=== PATIENT | female | born 1940 | race Caucasian/White ===

== ENCOUNTER → 2016-11-12 | Emergency (ER) | payer BC ==
[~2016-11-12] MED LIST: ACETAMINOPHEN 325 MG TABLET (FP) ONE; ACETAMINOPHEN 325 MG TABLET (FP) PO ONE; FUROSEMIDE 40 MG/4 ML INJECTABLE VIAL ONE; HYDROCORTISONE SOD SUCCINATE 2 ML ONE; PT OWN MED DRAWER 7, Y5N ONE
[2016-11-12 19:07] VITALS: BP 188/104; PULSE 69; TEMP 97.4; BMI 25.9
[2016-11-12 22:00] LABS: BASOPHIL 1.1 % (0-2.0); EOSINOPHIL 1.6 % (0-4.5); MCH 31.4 pg (25.7-33.7); MCHC 33.5 g/dl (32.0-36.0); MEAN CELL VOLUME 93.7 fl (80-96); MEAN PLT VOLUME 9.2 fl (7.5-11.1); PLATELET COUNT 175 K/MM3 (134-434); RDW 13.6 % (11.6-15.6); WHITE BLOOD COUNT 8.3 K/mm3 (4.0-10.0)
[2016-11-12 22:22] LABS: INR 1.88 (0.82-1.09)
[2016-11-12 22:33] LABS: ALBUMIN 3.8 g/dl (3.4-5.0); ANION GAP 11 (8-16); CALCIUM 9.7 mg/dL (8.5-10.1); CO2 22 mmol/L (21-32); GLUCOSE,RANDOM 88 mg/dL (74-106); SGPT/ALT 19 U/L (12-78)
[2016-11-12 22:38] LABS: ALK PHOS 100 U/L (45-117); BILIRUBIN,TOTAL 0.6 mg/dL (0.2-1.0); CREATININE 1.4 mg/dL (0.55-1.02); TROPONIN I < 0.02 ng/ml (0.00-0.05)
[2016-11-12 22:39] LABS: MAGNESIUM 1.5 mg/dL (1.8-2.4); SGOT/AST 25 U/L (15-37)
[2016-11-12 23:11] LABS: URINE APPEARANCE CLEAR; URINE BILIRUBIN NEGATIVE (NEGATIVE); URINE BLOOD NEGATIVE (NEGATIVE); URINE COLOR LT. YELLOW; URINE GLUCOSE (UA) NEGATIVE (NEGATIVE); URINE KETONE NEGATIVE (NEGATIVE); URINE LEUK ESTERASE NEGATIVE (NEGATIVE); URINE NITRITE NEGATIVE (NEGATIVE); URINE PROTEIN NEGATIVE (NEGATIVE); URINE UROBILINOGEN 0.2 E.U/dl E.U./dl (0.2-1.0)
--- NOTE | 2016-11-12 23:18 | PDOC ---
History of Present Illness - General Chief Complaint: Blood Pressure Problem Stated Complaint: PCP SENT/BLOOD PRESSURE PROBLEM Time Seen by Provider: 11/12/16 19:01 History Source: Patient, Family Exam Limitations: No Limitations - History of Present Illness Initial Comments: 11/12/16 20:45 76yo Female patient presented to ED with Family c/o near syncope and HTN. Patient states she is currently under the care of Dr. Alok Austin ( Cardiology) for uncontrolled HTN. She state her Bp medications were recently adjusted due to elevated SBP. While in Dr. Austin office patient states she was called to the back and while ambulating, she had a near syncope episode "Dizzy Spell." Associated headache. She denies CP, Back pain, n/v/d, fever, diff breathing, confusion, disorientation, or any other complaints at this time. Dr. Alok Austin (Cardiology). Presenting Symptoms: Near-Syncope Timing/Duration: reports: resolved prior to arrival Severity/Quality: reports: mild Location: denies: substernal, central, epigastric, shoulder, back, abdomen, other Chest Pain Radiation: denies: no radiation, jaw, arms, neck, shoulders, back, sternal notch, epigastric, other Activities at Onset: denies: none, exertion, emotional upset, rest, sleep, no specific activity, eating, working, sexual intercourse, other Past History - Travel Traveled outside of the country in the last 30 days: No Close contact w/someone who was outside of country & ill: No - Past Medical History Allergies/Adverse Reactions: Allergies Allergy/AdvReac Type Severity Reaction Status Date / Time iodine Allergy Severe "TURNED Verified 11/12/16 19:01 RED LIKE A LOBSTER" phenobarbital Allergy Mild Itching Verified 11/12/16 19:01 Iodinated Contrast Media - Allergy Verified 11/12/16 19:01 Oral and [Iodinated Contrast Media - IV Dye] Sulfa (Sulfonamide Allergy Rash Verified 11/12/16 19:01 Antibiotics) prednisone AdvReac hallucinati Verified 11/12/16 19:01 ons Home Medications: Ambulatory Orders Allopurinol [Zyloprim -] 100 mg PO DAILY 08/15/13 Cholecalciferol (Vitamin D3) [Vitamin D] 1,000 unit PO DAILY 08/15/13 Folic Acid - 400 mcg PO DAILY 11/29/14 Mirtazapine [Remeron -] 15 mg PO DAILY 07/10/15 Alprazolam [Xanax] 0.5 mg PO BID PRN 07/25/15 Warfarin Na [Coumadin -] 2 mg PO HS 10/15/15 Amlodipine Besylate [Norvasc -] 5 mg PO DAILY #30 tablet 10/18/15 Metoprolol Tartrate [Lopressor -] 12.5 mg PO BID #30 tablet 10/18/15 Valsartan [Diovan] 160 mg PO DAILY #30 tablet 10/18/15 Anemia: No Asthma: No Cancer: Yes (COLON, MELANOMA- RESECTION ON R UE.) Cardiac Disorders: Yes (ATRIAL FIBRILLATION) CVA: No COPD: No CHF: No Dementia: No Diabetes: No GI Disorders: No Disorders: No HTN: Yes Hypercholesterolemia: No Liver Disease: No Seizures: No Thyroid Disease: No - Surgical History Abdominal Surgery: Yes (colon sx with anastomosis) Cardiac Surgery: No Cholecystectomy: Yes Lung Surgery: No Neurologic Surgery: No Orthopedic Surgery: No - Psycho/Social/Smoking Cessation Hx Anxiety: No Suicidal Ideation: No Smoking Status: Yes Smoking History: Never smoked Number of Cigarettes Smoked Daily: 0 Hx Alcohol Use: Yes (WINE) Drug/Substance Use Hx: No Substance Use Type: None Hx Substance Use Treatment: No Cardiac Specific PMH - Complaint Specific PMHX Abdominal Aortic Aneurysm: No Angina: No Cardiac Arrhythmia: No Cardiac Stent: No GERD: No Myocardial Infarction: No Pacemaker: No Pulmonary Embolus: No Valvular Heart Disease: No Peripheral Vascular Disease: No Review of Systems - Review of Systems Able to Perform ROS?: Yes Is the patient limited Iraqi proficient: No Constitutional: No: Chills, Fever, Weakness HEENTM: No: Blurred Vision, Double Vision Respiratory: No: Cough, Orthopnea, Shortness of Breath, Stridor, Wheezing Cardiac (ROS): Yes: Syncope. No: Chest Pain, Edema, Irregular Heart Rate, Lightheadedness, Palpitations, Chest Tightness ABD/GI: No: Constipated, Diarrhea, Nausea, Poor Appetite, Poor Fluid Intake, Rectal Bleeding, Vomiting, Tarry Stools : No: Burning, Dysuria, Frequency, Flank Pain, Hematuria, Urgency Musculoskeletal: No: Back Pain, Joint Swelling, Muscle Pain, Muscle Weakness, Neck Pain, Joint Stiffness Integumentary: No: Bruising, Dryness, Erythema, Rash Neurological: Yes: Headache. No: Numbness, Paresthesia, Seizure, Tingling, Tremors, Weakness, Ataxia, Dizziness All Other Systems: Reviewed and Negative *Physical Exam - Vital Signs Last Vital Signs Temp Pulse Resp BP Pulse Ox 97.4 F L 69 18 188/104 99 11/12/16 19:02 11/12/16 19:02 11/12/16 19:02 11/12/16 19:02 11/12/16 19:02 ED Treatment Course - LABORATORY CBC & Chemistry Diagram: 11/12/16 21:50 11/12/16 21:50 - ADDITIONAL ORDERS Additional order review: Laboratory Results 11/12/16 11/12/16 11/12/16 22:30 21:50 21:50 INR 1.88 H Sodium 140 Potassium 4.4 Chloride 107 Carbon Dioxide 22 Anion Gap 11 BUN 27 H Creatinine 1.4 H Creat Clearance w eGFR 36.56 Random Glucose 88 D Calcium 9.7 Magnesium 1.5 L Total Bilirubin 0.6 D AST 25 ALT 19 D Alkaline Phosphatase 100 Creatine Kinase 114 Troponin I < 0.02 Total Protein 7.0 Albumin 3.8 Urine Color Lt. yellow Urine Appearance Clear Urine pH 6.0 Ur Specific [place] <= 1.005 Urine Protein Negative Urine Glucose (UA) Negative Urine Ketones Negative Urine Blood Negative Urine Nitrite Negative Urine Bilirubin Negative Urine Urobilinogen 0.2 e.u/dl Ur Leukocyte Esterase Negative 11/12/16 21:50 RBC 3.27 L MCV 93.7 MCHC 33.5 RDW 13.6 MPV 9.2 Neutrophils % 68.0 Lymphocytes % 23.2 D Monocytes % 6.1 Eosinophils % 1.6 Basophils % 1.1 - RADIOLOGY Radiology Studies Ordered: Category Date Time Status HEAD CT WITHOUT CONTRAST [CT] Stat CT Scan 11/12/16 19:53 Completed - Medications Given in the ED: ED Medications Discontinued Medications Generic Name Dose Route Start Last Admin Trade Name Freq PRN Reason Stop Dose Admin Acetaminophen 650 mg 11/12/16 19:53 11/12/16 21:55 Tylenol - PO 11/12/16 19:54 650 mg ONCE ONE Administration Progress Note - Progress Note Progress Note: Discharge vitals: b/p 157/78, p- 76, O2- 97% RA. Patient is chest pain free and will be d/c'd to home with instructions to f/u with PCP and Cardiology. *DC/Admit/Observation/Transfer Diagnosis at time of Disposition: Pre-syncope HTN (hypertension) Qualifiers: Hypertension type: unspecified secondary hypertension Qualified Code(s): I15.9 - Secondary hypertension, unspecified; I15 - Secondary hypertension - Discharge Dispostion Disposition: HOME Condition at time of disposition: Stable Admit: No - Patient Instructions Printed Discharge Instructions: DI for High Blood Pressure, DI for Syncope in Adults (Fainting) Additional Instructions: FOLLOW UP WITH DR. SLOAN AND DR. AUSTIN THIS WEEK. CALL TO SCHEDULE APPOINTMENT. CONTINUE TO MONITOR YOUR BLOOD PRESSURE AND TAKE YOUR BLOOD PRESSURE MEDICATIONS PRESCRIBED. IF SYMPTOMS WORSEN, OR ANY CONCERNS RETURN FOR FURTHER EVALUATION. Print Language: FRISIAN
--- NOTE | 2016-11-12 23:46 | PDOC ---
*Physical Exam - Vital Signs Last Vital Signs Temp Pulse Resp BP Pulse Ox 97.4 F L 69 18 188/104 99 11/12/16 19:02 11/12/16 19:02 11/12/16 19:02 11/12/16 19:02 11/12/16 19:02 ED Treatment Course - LABORATORY CBC & Chemistry Diagram: 11/12/16 21:50 11/12/16 21:50 - ADDITIONAL ORDERS Additional order review: Laboratory Results 11/12/16 11/12/16 11/12/16 22:30 21:50 21:50 INR 1.88 H Sodium 140 Potassium 4.4 Chloride 107 Carbon Dioxide 22 Anion Gap 11 BUN 27 H Creatinine 1.4 H Creat Clearance w eGFR 36.56 Random Glucose 88 D Calcium 9.7 Magnesium 1.5 L Total Bilirubin 0.6 D AST 25 ALT 19 D Alkaline Phosphatase 100 Creatine Kinase 114 Troponin I < 0.02 Total Protein 7.0 Albumin 3.8 Urine Color Lt. yellow Urine Appearance Clear Urine pH 6.0 Ur Specific [place] <= 1.005 Urine Protein Negative Urine Glucose (UA) Negative Urine Ketones Negative Urine Blood Negative Urine Nitrite Negative Urine Bilirubin Negative Urine Urobilinogen 0.2 e.u/dl Ur Leukocyte Esterase Negative 11/12/16 21:50 RBC 3.27 L MCV 93.7 MCHC 33.5 RDW 13.6 MPV 9.2 Neutrophils % 68.0 Lymphocytes % 23.2 D Monocytes % 6.1 Eosinophils % 1.6 Basophils % 1.1 - Medications Given in the ED: ED Medications Discontinued Medications Generic Name Dose Route Start Last Admin Trade Name Freq PRN Reason Stop Dose Admin Acetaminophen 650 mg 11/12/16 19:53 11/12/16 21:55 Tylenol - PO 11/12/16 19:54 650 mg ONCE ONE Administration Medical Decision Making - Medical Decision Making 11/12/16 23:46 agree with care from EKTA Bautista *DC/Admit/Observation/Transfer Diagnosis at time of Disposition: Syncope, near HTN (hypertension) Qualifiers: Hypertension type: unspecified secondary hypertension Qualified Code(s): I15.9 - Secondary hypertension, unspecified - Discharge Dispostion Disposition: HOME Condition at time of disposition: Stable - Referrals Referrals: Quan Sloan MD [Primary Care Provider] - - Patient Instructions Printed Discharge Instructions: DI for Syncope in Adults (Fainting), DI for High Blood Pressure Additional Instructions: FOLLOW UP WITH DR. SLOAN AND DR. AUSTIN THIS WEEK. CALL TO SCHEDULE APPOINTMENT. CONTINUE TO MONITOR YOUR BLOOD PRESSURE AND TAKE YOUR BLOOD PRESSURE MEDICATIONS PRESCRIBED. IF SYMPTOMS WORSEN, OR ANY CONCERNS RETURN FOR FURTHER EVALUATION. Print Language: POLISH - Post Discharge Activity
== END | disposition home or self-care (01) ==
LOC: JER 18:58
DX: R55 Syncope and collapse (principal); I15.9 Secondary hypertension, unspecified; Z79.01 Long term (current) use of anticoagulants; I48.91 Unspecified atrial fibrillation; Z85.030 Personal history of malignant carcinoid tumor of large intestine; Z85.820 Personal history of malignant melanoma of skin
CPT/HCPCS: 36415; 70450-TC; 80053; 81003; 82550; 83735; 84484; 85025; 85610; 99281-25

== ENCOUNTER 2017-02-17 17:16 | Inpatient (IN) | payer BC ==
--- NOTE | 2017-02-17 17:36 | PDOC ---
History of Present Illness - General History Source: Patient Exam Limitations: No Limitations - History of Present Illness Initial Comments: 02/17/17 18:05 The patient is a 76 year old female, with significant past medical history of DVT of both lower extremities, HTN, Afib, colon cancer s/p colon resection, who was sent in by Dr. Lamas for a right popliteal DVT found during an office visit today. She states that her right foot is slightly painful, but has no other complaints at this time. The patient notes that she just finished a course of antibiotics (500mg of keflex twice a day) prescribed by [facility] for an ulcer on her right second toe. Denies abdominal pain. Denies fever, chills, nausea, vomiting. Allergies: Iodine, phenobarbital, iodinated contrast media, sulfa, prednisone PCP- Dr. Quan Lamas [phone] <Ila Angelo - Last Filed: 02/17/17 18:26> <Bird Hair - Last Filed: 02/17/17 18:38> - General Chief Complaint: Pain, Acute Stated Complaint: PCP ADMIT/BLOOD CLOT Time Seen by Provider: 02/17/17 17:35 Past History <Ila Angelo - Last Filed: 02/17/17 18:26> - Past Medical History Anemia: No Asthma: No Cancer: Yes (COLON, MELANOMA- RESECTION ON R UE.) Cardiac Disorders: Yes (ATRIAL FIBRILLATION) CVA: No COPD: No CHF: No Dementia: No Diabetes: No GI Disorders: No Disorders: No HTN: Yes Hypercholesterolemia: No Liver Disease: No Seizures: No Thyroid Disease: No - Surgical History Abdominal Surgery: Yes (colon sx with anastomosis) Cardiac Surgery: No Cholecystectomy: Yes Lung Surgery: No Neurologic Surgery: No Orthopedic Surgery: No - Psycho/Social/Smoking Cessation Hx Anxiety: No Suicidal Ideation: No Smoking Status: Yes Smoking History: Never smoked Number of Cigarettes Smoked Daily: 0 Hx Alcohol Use: Yes (WINE) Drug/Substance Use Hx: No Substance Use Type: None Hx Substance Use Treatment: No <Bird Hair - Last Filed: 02/17/17 18:38> - Past Medical History Allergies/Adverse Reactions: Allergies Allergy/AdvReac Type Severity Reaction Status Date / Time iodine Allergy Severe "TURNED Verified 11/12/16 19:01 RED LIKE A LOBSTER" phenobarbital Allergy Mild Itching Verified 11/12/16 19:01 Iodinated Contrast Media - Allergy Verified 11/12/16 19:01 Oral and [Iodinated Contrast Media - IV Dye] Sulfa (Sulfonamide Allergy Rash Verified 11/12/16 19:01 Antibiotics) prednisone AdvReac hallucinati Verified 11/12/16 19:01 ons Home Medications: Ambulatory Orders Allopurinol [Zyloprim -] 100 mg PO DAILY 08/15/13 Cholecalciferol (Vitamin D3) [Vitamin D] 1,000 unit PO DAILY 08/15/13 Folic Acid - 400 mcg PO DAILY 11/29/14 Mirtazapine [Remeron -] 15 mg PO DAILY 07/10/15 Alprazolam [Xanax] 0.5 mg PO BID PRN 07/25/15 Warfarin Na [Coumadin -] 2 mg PO ASDIR 10/15/15 Hydralazine HCl 50 mg PO TID 02/17/17 Hydrochlorothiazide [Hctz -] 25 mg PO DAILY 02/17/17 Isosorbide Mononitrate [Imdur -] 30 mg PO DAILY 02/17/17 Losartan Potassium 50 mg PO BID 02/17/17 Metoprolol Tartrate [Lopressor -] 12.5 mg PO DAILY 02/17/17 Pramipexole Di-HCl [Pramipexole ER] 0.375 mg PO BID 02/17/17 Rosuvastatin Calcium [Crestor] 5 mg PO DAILY 02/17/17 Tramadol HCl 50 mg PO BID PRN 02/17/17 Warfarin Sodium [Coumadin] 4 mg PO ASDIR 02/17/17 Review of Systems - Review of Systems Able to Perform ROS?: Yes Comments:: 02/17/17 18:06 GENERAL/CONSTITUTIONAL: No fever or chills. No weakness. HEAD, EYES, EARS, NOSE AND THROAT: No change in vision. No ear pain or discharge. No sore throat. CARDIOVASCULAR: No chest pain or shortness of breath. RESPIRATORY: No cough, wheezing, or hemoptysis. GASTROINTESTINAL: No nausea, vomiting, diarrhea or constipation. GENITOURINARY: No dysuria, frequency, or change in urination. MUSCULOSKELETAL: + RLE edema. No joint or muscle swelling or pain. No neck or back pain. SKIN: +ulcer on the right second toe. NEUROLOGIC: No headache, vertigo, loss of consciousness, or change in strength/ sensation. ENDOCRINE: No increased thirst. No abnormal weight change. HEMATOLOGIC/LYMPHATIC: No anemia, easy bleeding, or history of blood clots. ALLERGIC/IMMUNOLOGIC: No hives or skin allergy. <Ila Angelo - Last Filed: 02/17/17 18:26> *Physical Exam - Vital Signs Last Vital Signs Temp Pulse Resp BP Pulse Ox 98.0 F 66 18 161/76 100 02/17/17 17:37 02/17/17 17:37 02/17/17 17:37 02/17/17 17:37 02/17/17 17:37 - Physical Exam Comments: 02/17/17 18:06 GENERAL: Awake, alert, and fully oriented, in no acute distress HEAD: No signs of trauma EYES: PERRLA, EOMI, sclera anicteric, conjunctiva clear ENT: Auricles normal inspection, hearing grossly normal, nares patent, oropharynx clear without exudates. Moist mucosa NECK: Normal ROM, supple, no lymphadenopathy, JVD, or masses LUNGS: Breath sounds equal, clear to auscultation bilaterally. No wheezes, and no crackles HEART: Regular rate and rhythm, normal S1 and S2, no murmurs, rubs or gallops ABDOMEN: Soft, nontender, normoactive bowel sounds. No guarding, no rebound. No masses EXTREMITIES: 3+ pitting edema of the RLE. Normal range of motion. No clubbing or cyanosis. No cords. NEUROLOGICAL: Cranial nerves II through XII grossly intact. Normal speech, normal gait SKIN: +Ulcer on the medial aspect of the right second toe. Warm, Dry, normal turgor, no rashes. <Ila Angelo - Last Filed: 02/17/17 18:26> Heart Score/ECG Review #1 02/17/17 18:20 Sinus bradycardia with a rate of 59 bpm <Ila Angelo - Last Filed: 02/17/17 18:26> ED Treatment Course - LABORATORY CBC & Chemistry Diagram: 02/17/17 17:55 02/17/17 17:55 - RADIOLOGY Radiograph Interpretation: 02/17/17 18:27 Chest X-ray As reported by Dr. Matt Snider. Impression: No acute disease <Ila Angelo - Last Filed: 02/17/17 18:26> - LABORATORY CBC & Chemistry Diagram: 02/17/17 17:55 02/17/17 17:55 <Bird Hair - Last Filed: 02/17/17 18:38> *DC/Admit/Observation/Transfer - Attestations Scribe Attestion: 02/17/17 18:07 Documentation prepared by KADIE Lozano, acting as medical office representative for Bird Hair DO. <Ila Angelo - Last Filed: 02/17/17 18:26> - Discharge Dispostion Admit: Yes - Attestations Physician Attestion: 02/17/17 17:36 I, Dr. Bird Hair, attest that this document has been prepared under my direction and personally reviewed by me in its entirety. I further attest, that it accurately reflects all work, treatment, procedures and medical decision -making performed by me. <Bird Hair - Last Filed: 02/17/17 18:38> Diagnosis at time of Disposition: Deep vein thrombosis (DVT) of popliteal vein of right lower extremity Qualifiers: Chronicity: acute Qualified Code(s): I82.431 - Acute embolism and thrombosis of right popliteal vein - Discharge Dispostion Condition at time of disposition: Improved - Referrals Referrals: Quan Lamas MD [Primary Care Provider] -
[2017-02-17] MEDS ORDERED: ENOXAPARIN NA (PORCINE) 60 MG/0.6 ML DISP.SYRIN SQ SCH (17:45)
[2017-02-17] MEDS ORDERED: ENOXAPARIN NA (PORCINE) 60 MG/0.6 ML DISP.SYRIN SQ ONE (17:45)
[2017-02-17 18:10] LABS: BASOPHIL 0.5 % (0-2.0); MCH 31.4 pg (25.7-33.7); MCHC 33.7 g/dl (32.0-36.0); MEAN CELL VOLUME 93.1 fl (80-96); MEAN PLT VOLUME 8.6 fl (7.5-11.1); PLATELET COUNT 193 K/MM3 (134-434); RDW 13.2 % (11.6-15.6); WHITE BLOOD COUNT 8.2 K/mm3 (4.0-10.0)
[2017-02-17] MEDS ORDERED: ENOXAPARIN NA (PORCINE) 80 MG/0.8 ML DISP.SYRIN SQ ONE (18:20)
[2017-02-17 18:36] LABS: ALBUMIN 3.9 g/dl (3.4-5.0); ANION GAP 11 (8-16); CALCIUM 9.5 mg/dL (8.5-10.1); CO2 24 mmol/L (21-32); CREATININE 1.5 mg/dL (0.55-1.02); GLUCOSE,RANDOM 158 mg/dL (74-106); SGOT/AST 25 U/L (15-37); SGPT/ALT 21 U/L (12-78)
[2017-02-17 18:41] LABS: ALK PHOS 101 U/L (45-117); BILIRUBIN,TOTAL 0.4 mg/dL (0.2-1.0); TOT PROT 7.1 g/dl (6.4-8.2); TROPONIN I < 0.02 ng/ml (0.00-0.05)
[2017-02-17 18:48] LABS: INR 1.7 (0.82-1.09); PROTHROMBIN TIME (PATIENT) 18.9 SEC (9.98-11.88)
[2017-02-17] MEDS ORDERED: ALPRAZolam 0.25 MG TABLET PO PRN (19:02)
[2017-02-17] MEDS ORDERED: traMADol HCL 50 MG TABLET PO PRN (19:02)
[2017-02-17] MEDS ORDERED: ACETAMINOPHEN 325 MG TABLET (FP) PO PRN (19:04)
[2017-02-17] MEDS: hydrALAZINE HCL 50 MG TABLET (FP) PO SCH (22:54)
[2017-02-17] MEDS: LOSARTAN POTASSIUM 50 MG TABLET (FP) PO SCH (22:54)
[2017-02-17] MEDS: PRAMIPEXOLE DIHYDROCHLORIDE 0.125 MG TABLET PO SCH (22:55)
[2017-02-18] MEDS: ENOXAPARIN NA (PORCINE) 60 MG/0.6 ML DISP.SYRIN SQ SCH ×4 (02:31→22:31)
[2017-02-18] MEDS: hydrALAZINE HCL 50 MG TABLET (FP) PO SCH ×3 (06:22→22:30)
[2017-02-18 07:55] LABS: BASOPHIL 0.7 % (0-2.0); EOSINOPHIL 2.7 % (0-4.5); MCH 31.5 pg (25.7-33.7); MCHC 34.3 g/dl (32.0-36.0); MEAN CELL VOLUME 91.9 fl (80-96); MEAN PLT VOLUME 8.2 fl (7.5-11.1); NEUTROPHILS 58.3 % (42.8-82.8); PLATELET COUNT 153 K/MM3 (134-434); RDW 13.5 % (11.6-15.6); WHITE BLOOD COUNT 6.3 K/mm3 (4.0-10.0)
[2017-02-18 08:29] LABS: INR 1.89 (0.82-1.09); PROTHROMBIN TIME (PATIENT) 21.1 SEC (9.98-11.88)
[2017-02-18 09:33] LABS: ALBUMIN 3.5 g/dl (3.4-5.0); ALK PHOS 94 U/L (45-117); ANION GAP 10 (8-16); BILIRUBIN,TOTAL 0.7 mg/dL (0.2-1.0); CALCIUM 9.7 mg/dL (8.5-10.1); CO2 23 mmol/L (21-32); CREATININE 1.3 mg/dL (0.55-1.02); GLUCOSE,RANDOM 83 mg/dL (74-106); SGOT/AST 24 U/L (15-37); SGPT/ALT 20 U/L (12-78); TOT PROT 6.4 g/dl (6.4-8.2); TROPONIN I < 0.02 ng/ml (0.00-0.05)
[2017-02-18] MEDS: ROSUVASTATIN CA 5 MG TABLET (FP) PO SCH ×2 (10:16→13:11)
--- NOTE | 2017-02-18 10:18 | CONSULT ---
Consultation: REQUESTING PROVIDER: CONSULT REQUEST: We have been asked to medically evaluate this patient for (ID). HISTORY OF PRESENT ILLNESS: 76 y/o female with pmh of dvt, colon cancer s/p resection, melanoma s/p resection was sent in by her pcp for right poplitian vein thrombosis and swelling in right foot. Patient states that she has swelling and erythema in right foot middle finger since 5 week. At that time she saw her pcp who did usg and xray, as per patient they were garcia. swelling and erythema kept on increasing and went uptil dorsum of her foot. 2 week ago patient noticed a discharge from her finger and she went to her pcp who gave her keflex 500mg bid for 10 days, last dose was on . Swelling, erythema and discharge never decreased while she was on antibiotic course. Yesterday she went back to her pcp who did usg leg and found poplitial vein thrombus right side. But repeat duplex scan in hospital didn't show thrombus. Patient denies fever, chills. Patient denies bumping her foot, denies blue discoloration of foot. Denies insect bite. States its tender to touch. Walks with cane. she also states that she has swelling in b/l lower leg since august but now as she has been started on hdrochlorthiazide 2 week ago since then swelling in left leg has decreased but right leg swelling is still there. Also reports chronic back pain and knee pain PMH, DVT twice, afib, htn, colon cancer s/p resection 20 years ago took chemo after that , melanoma s/p wide resection 40 years ago, PSH colon resection, melanoma resection, cholecystectomy, b/l cataract non smoker REVIEW OF SYSTEMS: CONSTITUTIONAL: Absent: fever, chills, diaphoresis, CARDIOVASCULAR: Absent: chest pain, syncope, palpitations, peripheral edema RESPIRATORY: Absent: cough, shortness of breath, GASTROINTESTINAL: Absent: abdominal pain, abdominal distension, nausea, vomiting, GENITOURINARY: Absent: dysuria, frequency, urgency, PHYSICAL EXAMINATION Vital Signs - 24 hr 02/17/17 02/17/17 02/18/17 20:14 21:55 06:00 Temperature 97.8 F 98.0 F 97.9 F Pulse Rate 56 L 55 L Pulse Rate [ 60 Apical] Respiratory 17 18 20 Rate Blood Pressure 149/74 117/52 Blood Pressure 163/85 [Right Arm] O2 Sat by Pulse 98 99 Oximetry (%) GENERAL: Awake, alert, and fully oriented, in no acute distress. EYES: Pupils equal, round, extraocular movements intact, EARS, NOSE, THROAT: poor oral hygiene, multiple cavities, moist mucus membrane NECK: Normal range of motion, no lymphadenopathy, LUNGS: Breath sounds equal, clear to auscultation bilaterally. No wheezes, and no crackles. No accessory muscle use. HEART: s1s2 normal ABDOMEN: Soft, nontender, not distended, normoactive bowel sounds, no guarding, no rebound, no masses. transverse and liner surgical scars UPPER EXTREMITIES: 2+ pulses, warm, well-perfused. LOWER EXTREMITIES: 2+ pulses, warm, well-perfused. No calf tenderness. peripheral edema 2+ on right ankle, right foot middle finger erythematous, tender to touch, warm to touch, small around 0.5x0.5 am ulcer on medial aspect of finger, dry, no active discharge seen, but gauze covering the ulcer has some discharge on it. peripharal vesels DP palpable. mild erythema present on dorsum of foot Laboratory Results - last 24 hr 02/17/17 02/18/17 02/18/17 19:00 06:18 06:18 WBC 6.3 RBC 2.97 L Hgb 9.4 L Hct 27.3 L MCV 91.9 MCHC 34.3 RDW 13.5 Plt Count 153 D MPV 8.2 Neutrophils % 58.3 D Lymphocytes % 29.6 D Monocytes % 8.7 Eosinophils % 2.7 D Basophils % 0.7 INR 1.89 H Sodium Potassium Chloride Carbon Dioxide Anion Gap BUN Creatinine Creat Clearance w eGFR Random Glucose Calcium Total Bilirubin AST ALT Alkaline Phosphatase Troponin I B-Natriuretic Peptide 372.52 Total Protein Albumin 02/18/17 06:18 WBC RBC Hgb Hct MCV MCHC RDW Plt Count MPV Neutrophils % Lymphocytes % Monocytes % Eosinophils % Basophils % INR Sodium 131 L Potassium 3.8 Chloride 98 Carbon Dioxide 23 Anion Gap 10 BUN 21 H Creatinine 1.3 H Creat Clearance w eGFR 39.82 Random Glucose 83 D Calcium 9.7 Total Bilirubin 0.7 D AST 24 ALT 20 Alkaline Phosphatase 94 Troponin I < 0.02 B-Natriuretic Peptide Total Protein 6.4 Albumin 3.5 Active Medications Generic Name Dose Route Start Last Admin Trade Name Freq PRN Reason Stop Dose Admin Acetaminophen 650 mg 02/17/17 19:04 Tylenol - PO Q4H PRN FEVER OR PAIN Allopurinol 100 mg 02/18/17 10:00 Zyloprim - PO DAILY [facility] Alprazolam 0.5 mg 02/17/17 19:02 Xanax - PO BID PRN ANXIETY Cholecalciferol 1,000 unit 02/18/17 10:00 Vitamin D3 - PO DAILY [facility] Enoxaparin Sodium 60 mg 02/17/17 22:00 02/18/17 02:31 Lovenox - SQ Not Given BID [facility] Folic Acid 0.5 mg 02/18/17 10:00 Folic Acid - PO DAILY [facility] Furosemide 40 mg 02/18/17 10:00 Lasix Injection - IVPB DAILY [facility] Hydralazine HCl 50 mg 02/17/17 22:00 02/18/17 06:22 Apresoline - PO Not Given TID [facility] Hydrochlorothiazide 25 mg 02/18/17 10:00 Hctz - PO DAILY [facility] Isosorbide Mononitrate 30 mg 02/18/17 10:00 Imdur - PO DAILY [facility] Losartan Potassium 50 mg 02/17/17 22:00 02/17/17 22:54 Cozaar - PO Not Given BID [facility] Metoprolol Tartrate 12.5 mg 02/18/17 10:00 Lopressor - PO DAILY [facility] Mirtazapine 15 mg 02/18/17 10:00 Remeron - PO DAILY [facility] Pramipexole Dihydrochloride 0.375 mg 02/17/17 22:00 02/17/17 22:55 Mirapex - PO 0.125 mg BID [facility] Administration Rosuvastatin Calcium 5 mg 02/18/17 10:00 Crestor - PO DAILY [facility] Tramadol HCl 50 mg 02/17/17 19:02 Ultram - PO BID PRN PAIN ASSESSMENT/PLAN: 76 y/o female with pmh of dvt with progressively increasing swelling, erythema and ulcer on middle finger of right foot( 2 week). Patient had completed a 10 day course on keflex. Last dose on patient afebrile, wbc 6.3, neutrophil 53 possible celulitis, ? osteomyelitis anemia and hyponatremia. plan xray right foot. follow culture wound culture get crp,esr mri right foot. Iv antibiotic ceftaroline 400mg bid, Dispo: We will continue to follow the patient. Thank you for this consultative opportunity. Visit type - Emergency Visit Emergency Visit: Yes ED Registration Date: 02/17/17 Care time: The patient presented to the Emergency Department on the above date and was hospitalized for further evaluation of their emergent condition. - New Patient This patient is new to me today: Yes Date on this admission: 02/18/17 - Critical Care Critical Care patient: No
[2017-02-18] MEDS: FOLIC ACID 1 MG TABLET (FP) PO SCH (10:20)
[2017-02-18] MEDS: MIRTAZAPINE 15 MG TABLET (FP) PO SCH (10:21)
[2017-02-18] MEDS: CHOLECALCIFEROL (VITAMIN D3) 1,000 UNIT TABLET (FP) PO SCH (10:22)
[2017-02-18] MEDS: ALLOPURINOL 100 MG TABLET (FP) PO SCH (10:22)
--- NOTE | 2017-02-18 10:31 | HP ---
Admitting History and Physical - Admission History of Present Illness: 76 year old female, with significant past medical history of DVT of both lower extremities, HTN, Afib, colon cancer s/p colon resection, who was sent in by Dr. Lamas for a right popliteal DVT found during an office visit today. She states that her right foot is swollen and painful. Pt had swelling and redness of the foot last week and placed on abx. 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) Cardiovascular: Yes: AFIB, HTN, Hyperlipdemia Gastrointestinal: Yes: Cancer (colon), Diverticulosis, Gastritis (h pylori) Hepatobiliary: Yes: Hepatitis B Renal/: Yes: Renal Calculi Heme/Onc: Yes: Anemia, Cancer (colon), Other (dvt) Infectious Disease: Yes: Tuberculosis (treated??) Endocrine: Yes: Hyperparathyroidism - Smoking History Smoking history: Never smoked Have you smoked in the past 12 months: No Aproximately how many cigarettes per day: 0 - Alcohol/Substance Use Hx Alcohol Use: Yes (WINE) Home Medications - Allergies Allergies/Adverse Reactions: Allergies Allergy/AdvReac Type Severity Reaction Status Date / Time iodine Allergy Severe "TURNED Verified 11/12/16 19:01 RED LIKE A LOBSTER" phenobarbital Allergy Mild Itching Verified 11/12/16 19:01 Iodinated Contrast Media - Allergy Verified 11/12/16 19:01 Oral and [Iodinated Contrast Media - IV Dye] Sulfa (Sulfonamide Allergy Rash Verified 11/12/16 19:01 Antibiotics) prednisone AdvReac hallucinati Verified 11/12/16 19:01 ons - Home Medications Home Medications: Ambulatory Orders Allopurinol [Zyloprim -] 100 mg PO DAILY 08/15/13 Cholecalciferol (Vitamin D3) [Vitamin D] 1,000 unit PO DAILY 08/15/13 Folic Acid - 400 mcg PO DAILY 11/29/14 Mirtazapine [Remeron -] 15 mg PO DAILY 07/10/15 Alprazolam [Xanax] 0.5 mg PO BID PRN 07/25/15 Warfarin Na [Coumadin -] 2 mg PO ASDIR 10/15/15 Hydralazine HCl 50 mg PO TID 02/17/17 Hydrochlorothiazide [Hctz -] 25 mg PO DAILY 02/17/17 Isosorbide Mononitrate [Imdur -] 30 mg PO DAILY 02/17/17 Losartan Potassium 50 mg PO BID 02/17/17 Metoprolol Tartrate [Lopressor -] 12.5 mg PO DAILY 02/17/17 Pramipexole Di-HCl [Pramipexole ER] 0.375 mg PO BID 02/17/17 Rosuvastatin Calcium [Crestor] 5 mg PO DAILY 02/17/17 Tramadol HCl 50 mg PO BID PRN 02/17/17 Warfarin Sodium [Coumadin] 4 mg PO ASDIR 02/17/17 Review of Systems - Review of Systems Neck: reports: No Symptoms Cardiovascular: reports: No Symptoms Respiratory: reports: No Symptoms Gastrointestinal: reports: No Symptoms Musculoskeletal: reports: Other (foot pain) Integumentary: reports: Eczema Physical Examination Vital Signs: Vital Signs Temperature 97.9 F 02/18/17 06:00 Pulse Rate 55 L 02/18/17 06:00 Respiratory Rate 20 02/18/17 06:00 Blood Pressure 117/52 02/18/17 06:00 O2 Sat by Pulse Oximetry (%) 99 02/17/17 21:55 Neck: Yes: Trachea Midline Cardiovascular: Yes: Regular Rate and Rhythm Respiratory: Yes: Regular, CTA Bilaterally Gastrointestinal: Yes: Normal Bowel Sounds, Soft. No: Tenderness Musculoskeletal: Yes: Joint Swelling Extremities: Yes: Calf Tenderness (rt), Erythema (of rt foot) Edema: Yes (rt foot) Neurological: Yes: Alert, Oriented Labs: CBC, BMP 02/18/17 06:18 02/18/17 06:18
[2017-02-18] MEDS: PRAMIPEXOLE DIHYDROCHLORIDE 0.125 MG TABLET PO SCH ×2 (10:34→22:32)
--- NOTE | 2017-02-18 11:59 | PN ---
Teaching Attending Note Name of Resident: Uche Roberson ATTENDING PHYSICIAN STATEMENT I saw and evaluated the patient. I reviewed the resident's note and discussed the case with the resident. I agree with the resident's findings and plan as documented. SUBJECTIVE: has hadbilateral foot swelling for several months, left leg and foot improved with diuretics, right leg did not ?DVT- referred to the hospital 5 week history of toe swelling did not respond to po keflex for 10 days small ulcer with serous drainage no diabetes OBJECTIVE: Vital Signs Period Temp Pulse Resp BP Sys/Blackman Pulse Ox Last 24 Hr 97.8 F-98.0 F 55-76 17-20 116-163/52-85 97-100 cor-rrr lungs clear abd soft, nt ext +swelling right foot with swelling second toe- diffuse erythema of the toe and dorsum of the foot ulcer .5 cm, no drainage +pulses CBC, BMP 02/18/17 06:18 02/18/17 06:18 xray pending ASSESSMENT AND PLAN: cellulitis r/o osteo esr/crp cultures pending mri of foot ceftaroline adjust for CKD anemia hyponatremia sulfa allergy Problem List - Problems (1) Cellulitis Code(s): L03.90 - CELLULITIS, UNSPECIFIED Qualifiers: Site of cellulitis of extremity: lower extremity Laterality: right (2) Osteomyelitis of foot, right, acute Code(s): M86.171 - OTHER ACUTE OSTEOMYELITIS, RIGHT ANKLE AND FOOT
[2017-02-18] MEDS: LOSARTAN POTASSIUM 50 MG TABLET (FP) PO SCH ×2 (12:11→22:31)
[2017-02-18] MEDS: ISOSORBIDE MONONITRATE 30 MG TAB.SR.24H (FP) PO SCH (12:11)
[2017-02-18] MEDS: HYDROCHLOROTHIAZIDE 12.5 MG CAPSULE (FP) PO SCH (12:11)
[2017-02-18] MEDS: METOPROLOL TARTRATE 25 MG TABLET (FP) PO SCH (12:12)
[2017-02-18] MEDS: FUROSEMIDE 40 MG/4 ML INJECTABLE VIAL IVPB SCH (12:12)
[2017-02-18] MEDS ORDERED: CEFTAROLINE FOSAMIL ACETATE 400 MG in DEXTROSE 5%-WATER - 100 ML IVPB ONE (12:30)
--- NOTE | 2017-02-18 12:43 | CONSULT ---
- Consultation REQUESTING PROVIDER: Dr. Burns CONSULT REQUEST: We have been asked to surgically evaluate this patient for right foot infection. PCP:Quan Lamas HISTORY OF PRESENT ILLNESS: The patient is a 76 yo female with a right foot swelling/redness. She has had this infection for approximately 5 weeks and was treated as an outpt with 10 days of oral antibiotics. She denies any current trauma but did have an injury to this foot/toe years ago and it has remained slightly deformed. No history of diabetes. scant drainge fro the second right toe. Yesterday while in Dr. Lamas's office they completed a right lower ext duplex study and the patient was told that it was positive for a DVT and she was sent to the ER for admission. She received 70 mg of lovenox last pm. PMHx: A fib(on coumadin), CKD, h/o DVT, HTN, high cholesterol PSHx: colon resection, cholecystectomy Home Medications Medication Instructions Recorded Allopurinol [Zyloprim -] 100 mg PO DAILY 08/15/13 Cholecalciferol (Vitamin D3) 1,000 unit PO DAILY 08/15/13 [Vitamin D] Folic Acid - 400 mcg PO DAILY 11/29/14 Mirtazapine [Remeron -] 15 mg PO DAILY 07/10/15 Alprazolam [Xanax] 0.5 mg PO BID PRN 07/25/15 Warfarin Na [Coumadin -] 2 mg PO ASDIR 10/15/15 Hydralazine HCl 50 mg PO TID 02/17/17 Hydrochlorothiazide [Hctz -] 25 mg PO DAILY 02/17/17 Isosorbide Mononitrate [Imdur -] 30 mg PO DAILY 02/17/17 Losartan Potassium 50 mg PO BID 02/17/17 Metoprolol Tartrate [Lopressor -] 12.5 mg PO DAILY 02/17/17 Pramipexole Di-HCl [Pramipexole ER] 0.375 mg PO BID 02/17/17 Rosuvastatin Calcium [Crestor] 5 mg PO DAILY 02/17/17 Tramadol HCl 50 mg PO BID PRN 02/17/17 Warfarin Sodium [Coumadin] 4 mg PO ASDIR 02/17/17 Allergies Allergy/AdvReac Type Severity Reaction Status Date / Time iodine Allergy Severe "TURNED Verified 11/12/16 19:01 RED LIKE A LOBSTER" phenobarbital Allergy Mild Itching Verified 11/12/16 19:01 Iodinated Contrast Media - Allergy Verified 11/12/16 19:01 Oral and [Iodinated Contrast Media - IV Dye] Sulfa (Sulfonamide Allergy Rash Verified 11/12/16 19:01 Antibiotics) prednisone AdvReac hallucinati Verified 11/12/16 19:01 ons REVIEW OF SYSTEMS: CONSTITUTIONAL: Absent: fever, chills CARDIOVASCULAR: Absent: chest pain Present: h/o irregular rhythm RESPIRATORY: Absent: cough, shortness of breath GASTROINTESTINAL: Absent: abdominal pain, abdominal distension, nausea PHYSICAL EXAM: GENERAL: Awake, alert, and fully oriented, in no acute distress. HEAD: Normal with no signs of trauma. EYES: sclera anicteric, conjunctiva clear. NECK: Normal ROM, supple MUSCULOSKELETAL: Normal ROM at all joints. No bony deformities or tenderness. UPPER EXTREMITIES: 2+ pulses, warm, well-perfused. No cyanosis. Cap refill <2 seconds. No peripheral edema. LOWER EXTREMITIES: 2+ pulses, warm, well-perfused. No calf tenderness. edema to right foot. NEUROLOGICAL: Normal speech, gait not observed. PSYCH: Cooperative. Good eye contact. Appropriate mood and affect. SKIN: Warm, dry, normal turgor, no rashes or lesions noted. Vital Signs Temperature 97.8 F 02/18/17 09:00 Pulse Rate 66 02/18/17 12:17 Respiratory Rate 20 02/18/17 12:17 Blood Pressure 158/81 02/18/17 12:17 O2 Sat by Pulse Oximetry (%) 99 02/17/17 21:55 Lab Results WBC 6.3 K/mm3 (4.0-10.0) 02/18/17 06:18 RBC 2.97 M/mm3 (3.60-5.2) L 02/18/17 06:18 Hgb 9.4 GM/dL (10.7-15.3) L 02/18/17 06:18 Hct 27.3 % (32.4-45.2) L 02/18/17 06:18 MCV 91.9 fl (80-96) 02/18/17 06:18 MCHC 34.3 g/dl (32.0-36.0) 02/18/17 06:18 RDW 13.5 % (11.6-15.6) 02/18/17 06:18 Plt Count 153 K/MM3 (134-434) D 02/18/17 06:18 Sodium 131 mmol/L (136-145) L 02/18/17 06:18 Potassium 3.8 mmol/L (3.5-5.1) 02/18/17 06:18 Chloride 98 mmol/L (98-107) 02/18/17 06:18 Carbon Dioxide 23 mmol/L (21-32) 02/18/17 06:18 Anion Gap 10 (8-16) 02/18/17 06:18 BUN 21 mg/dL (7-18) H 02/18/17 06:18 Creatinine 1.3 mg/dL (0.55-1.02) H 02/18/17 06:18 Random Glucose 83 mg/dL (74-106) D 02/18/17 06:18 Calcium 9.7 mg/dL (8.5-10.1) 02/18/17 06:18 INR 1.89 (0.82-1.09) H 02/18/17 06:18 Soft tissue swelling around second digit with erosive changes at distal DIP joint. Duplex study: No evidence fo DVT to b/l lower extremtiies. Problem List - Problems (1) Cellulitis Assessment/Plan: 76 yo female with cellulitis of right foot/second toe infection. Recommend IV abx as per ID xray-erosion of right second DIP joint, recommend MRI to r/o osteo Pt with distal palpable pulses and no evidence of ischemia Will clincially follow patient to monitor cellulitis improvement with IV abx D/w Dr. Burns and he agress to the above plan Repeat vascular study without evidence of DVT and no swelling or tenderness clinically in the calf. INR not theraputic upon admission, recommend to continue to bridge until theraputic with INR level. Code(s): L03.90 - CELLULITIS, UNSPECIFIED Qualifiers: Site of cellulitis of extremity: lower extremity Laterality: right Visit type - Case Type Case Type: ED Admission - Emergency Emergency Visit: Yes ED Registration Date: 02/17/17 Care time: The patient presented to the Emergency Department on the above date and was hospitalized for further evaluation of their emergent condition. - New patient This patient is new to me today: Yes Date on this admission: 02/18/17 - Critical Care Critical Care patient: No
--- NOTE | 2017-02-18 12:46 | EKG ---
Test Reason : Blood Pressure : / mmHG Vent. Rate : 059 BPM Atrial Rate : 059 BPM P-R Int : 178 ms QRS Dur : 102 ms QT Int : 440 ms P-R-T Axes : 059 -15 -02 degrees QTc Int : 435 ms SINUS BRADYCARDIA MINIMAL VOLTAGE CRITERIA FOR LVH, MAY BE NORMAL VARIANT SEPTAL INFARCT , AGE UNDETERMINED ABNORMAL ECG WHEN COMPARED WITH ECG OF 14-OCT-2015 19:29, PREMATURE ATRIAL COMPLEXES ARE NO LONGER PRESENT QUESTIONABLE CHANGE IN QRS DURATION SEPTAL INFARCT IS NOW PRESENT Confirmed by GRACE BRENNAN, JAY ([id number]) on 02/18/2017 12:45:52 PM Referred By: Confirmed By:JAY EDWARSD MD
--- NOTE | 2017-02-18 13:29 | CON.CARD ---
Consult Consult Specialty:: Cardiology Referred by:: Dr Lamas Reason for Consultation:: afib - History of Present Illness Chief Complaint: right foot pain History of Present Illness: She is a 76 year old woman history of DVT of both lower extremities in the past , HTN, paroxysmal Afib diagnosed 7 years ago in the setting of MRSA, colon cancer s/p colon resection, who was sent in by Dr. Lamas for right foot swelling for several weeks with worsening erythema and lymphangitic spread found initially with a right popliteal DVT during an office visit, no DVT found at the hospital. No chest pain, sob, orthopnea or PND. 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 Nuclear stress test 10/16/15 moderate sized posterior wall reversible defect. Normal EF 72%. 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) Cardio/Vascular: Yes: AFIB, HTN, Hyperlipdemia Gastrointestinal: Yes: Cancer (colon), Diverticulosis, Gastritis (h pylori) Hepatobiliary: Yes: Hepatitis B Renal/: Yes: Renal Calculi Infectious Disease: Yes: Tuberculosis (treated??) Endocrine: Yes: Hyperparathyroidism - Alcohol/Substance Use Hx Alcohol Use: Yes (WINE) - Smoking History Smoking history: Never smoked Have you smoked in the past 12 months: No Aproximately how many cigarettes per day: 0 Home Medications - Allergies Allergies/Adverse Reactions: Allergies Allergy/AdvReac Type Severity Reaction Status Date / Time iodine Allergy Severe "TURNED Verified 11/12/16 19:01 RED LIKE A LOBSTER" phenobarbital Allergy Mild Itching Verified 11/12/16 19:01 Iodinated Contrast Media - Allergy Verified 11/12/16 19:01 Oral and [Iodinated Contrast Media - IV Dye] Sulfa (Sulfonamide Allergy Rash Verified 11/12/16 19:01 Antibiotics) prednisone AdvReac hallucinati Verified 11/12/16 19:01 ons - Home Medications Home Medications: Ambulatory Orders Allopurinol [Zyloprim -] 100 mg PO DAILY 08/15/13 Cholecalciferol (Vitamin D3) [Vitamin D] 1,000 unit PO DAILY 08/15/13 Folic Acid - 400 mcg PO DAILY 11/29/14 Mirtazapine [Remeron -] 15 mg PO DAILY 07/10/15 Alprazolam [Xanax] 0.5 mg PO BID PRN 07/25/15 Warfarin Na [Coumadin -] 2 mg PO ASDIR 10/15/15 Hydralazine HCl 50 mg PO TID 02/17/17 Hydrochlorothiazide [Hctz -] 25 mg PO DAILY 02/17/17 Isosorbide Mononitrate [Imdur -] 30 mg PO DAILY 02/17/17 Losartan Potassium 50 mg PO BID 02/17/17 Metoprolol Tartrate [Lopressor -] 12.5 mg PO DAILY 02/17/17 Pramipexole Di-HCl [Pramipexole ER] 0.375 mg PO BID 02/17/17 Rosuvastatin Calcium [Crestor] 5 mg PO DAILY 02/17/17 Tramadol HCl 50 mg PO BID PRN 02/17/17 Warfarin Sodium [Coumadin] 4 mg PO ASDIR 02/17/17 Review of Systems - Review of Systems Constitutional: reports: Weakness Cardiovascular: reports: No Symptoms Respiratory: reports: No Symptoms Gastrointestinal: reports: No Symptoms Genitourinary: reports: No Symptoms Vital Signs: Vital Signs Temperature 97.8 F 02/18/17 09:00 Pulse Rate 66 02/18/17 12:17 Respiratory Rate 20 02/18/17 12:17 Blood Pressure 158/81 02/18/17 12:17 O2 Sat by Pulse Oximetry (%) 99 02/17/17 21:55 Constitutional: Yes: Well Nourished, No Distress Eyes: Yes: WNL HENT: Yes: Atraumatic, Normocephalic Neck: Yes: Supple, Trachea Midline Respiratory: Yes: CTA Bilaterally Gastrointestinal: Yes: Normal Bowel Sounds, Soft Cardiovascular: Yes: Regular Rate and Rhythm JVD: No Carotid Bruit: No PMI: Non-Displaced Heart Sounds: Yes: S1, S2 Musculoskeletal: Yes: Back Pain Extremities: Yes: Erythema Edema: Yes Edema: RLE: 1+ Peripheral Pulses WNL: Yes Integumentary: Yes: Erythema - Other Data Labs, Other Data: CBC, BMP 02/18/17 06:18 02/18/17 06:18 INR, PTT INR 1.89 (0.82-1.09) H 02/18/17 06:18 Troponin, BNP 02/17/17 02/18/17 19:00 06:18 Troponin I < 0.02 B-Natriuretic Peptide 372.52 Troponin, BNP 02/17/17 02/18/17 19:00 06:18 Troponin I < 0.02 B-Natriuretic Peptide 372.52 sbrady, LVH nssttw changes, old septal RI. Ejection Fraction %: LVEF > or = 40 % Imaging - Results Chest X-ray: Report Reviewed (ALLAN) X-ray: Report Reviewed (poss osteo 2nd DIP) EKG: Report Reviewed (sbrady, LVH old septal RI nssttw changes.) Problem List - Problems (1) Afib Assessment/Plan: Would hold coumadin for now and give full dose lovenox 1 mg/kg bid until the surgical issues have resolved. No need for further cardiac testing. When stable she is now interested in NOAC, would start Eliquis 5 mg bid or Xarelto 20 mg daily or Pradaxa 150 mg bid depending on insurance coverage.= Code(s): I48.91 - UNSPECIFIED ATRIAL FIBRILLATION Qualifiers: Atrial fibrillation type: paroxysmal Qualified Code(s): I48.0 - Paroxysmal atrial fibrillation (2) Preop cardiovascular exam Assessment/Plan: There are no cardiac contraindications to osteomyelitis surgery should the need arise. She is at low to intermediate risk. No further preop testing is needed. She is medically optimized. Code(s): Z01.810 - ENCOUNTER FOR PREPROCEDURAL CARDIOVASCULAR EXAMINATION
--- NOTE | 2017-02-18 20:10 | PN ---
Progress Note (short form) - Note Progress Note: VAscular surgery Pt seen and examined. Right second toe cellulitis with ulcer. Pt has palpable pulses. MRI performed -- pending result. Pt is a candidate for HBO if osteo found on MRI. Will follow. Cont AC for afib. Bart Burns DO
--- NOTE | 2017-02-18 21:22 | CONSULT ---
Consult - text type - Consultation Consultation Note: Patient seen and examined 76 y/o female with pmh of dvt, colon cancer s/p resection, melanoma s/p resection was sent in by her pcp for right popliteal vein thrombosis and swelling in right foot. Patient states that she has swelling and erythema in right foot middle toe since 5 week. Swelling, erythema and discharge never decreased while she was on antibiotic course. Yesterday she went back to her pcp who did usg leg and found poplitial vein thrombus right side. But repeat duplex scan in hospital didn't show thrombus. PMH, DVT twice, afib, htn, colon cancer s/p resection 20 years ago took chemo after that , melanoma s/p wide resection 40 years ago, PSH colon resection, melanoma resection, cholecystectomy, b/l cataract non smoker HEENT-nl Breasts: Without masses Cor: RSR, No murmurs, No gallops Lungs: Clear to P&A Abd: Soft, Normal bowel sounds, No organomegaly Ext:No significant edema Labs/meds reviewed ASSESSMENT/PLAN: 76 y/o female with HTN, hyperlipidemia, afib, CAD, also with rt. 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
[2017-02-18] MEDS ORDERED: CEFTAROLINE FOSAMIL ACETATE 400 MG in DEXTROSE 5%-WATER - 100 ML IVPB SCH (22:00)
[2017-02-18] MEDS: CEFTAROLINE FOSAMIL ACETATE 400 MG in DEXTROSE 5%-WATER - 100 ML IVPB SCH (22:32)
[2017-02-19] MEDS: hydrALAZINE HCL 50 MG TABLET (FP) PO SCH ×4 (06:29→21:47)
[2017-02-19] MEDS: ISOSORBIDE MONONITRATE 30 MG TAB.SR.24H (FP) PO SCH (10:26)
[2017-02-19] MEDS: CHOLECALCIFEROL (VITAMIN D3) 1,000 UNIT TABLET (FP) PO SCH (10:26)
[2017-02-19] MEDS: ALLOPURINOL 100 MG TABLET (FP) PO SCH (10:26)
[2017-02-19] MEDS: HYDROCHLOROTHIAZIDE 12.5 MG CAPSULE (FP) PO SCH (10:27)
[2017-02-19] MEDS: LOSARTAN POTASSIUM 50 MG TABLET (FP) PO SCH ×2 (10:27→21:48)
[2017-02-19] MEDS: MIRTAZAPINE 15 MG TABLET (FP) PO SCH (10:27)
[2017-02-19] MEDS: ROSUVASTATIN CA 5 MG TABLET (FP) PO SCH (10:28)
[2017-02-19] MEDS: CEFTAROLINE FOSAMIL ACETATE 400 MG in DEXTROSE 5%-WATER - 100 ML IVPB SCH ×2 (10:33→21:49)
[2017-02-19] MEDS: PRAMIPEXOLE DIHYDROCHLORIDE 0.125 MG TABLET PO SCH ×2 (10:34→21:48)
--- NOTE | 2017-02-19 10:34 | PN ---
Progress Note, Physician Chief Complaint: Cellulitis with osteomyelitis History of Present Illness: Cellulitis of right second toe. MRI reveals osteomyelitis. Candidate for HBO tx as per Vascular. Continue IV abx. Furosemide changed to PO. Patient has poor IV access, may need PICC. - Current Medication List Current Medications: Active Medications Allopurinol (Zyloprim -) 100 mg PO DAILY [facility] Last Admin: 02/18/17 10:22 Dose: 100 mg Alprazolam (Xanax -) 0.5 mg PO BID PRN PRN Reason: ANXIETY Cholecalciferol (Vitamin D3 -) 1,000 unit PO DAILY [facility] Last Admin: 02/18/17 10:22 Dose: 1,000 unit Enoxaparin Sodium (Lovenox -) 60 mg SQ BID [facility] Last Admin: 02/18/17 22:31 Dose: 60 mg Folic Acid (Folic Acid -) 0.5 mg PO DAILY [facility] Last Admin: 02/18/17 10:20 Dose: 0.5 mg Furosemide (Lasix -) 40 mg PO DAILY [facility] Hydralazine HCl (Apresoline -) 50 mg PO TID [facility] Last Admin: 02/19/17 06:29 Dose: 50 mg Hydrochlorothiazide (Hctz -) 25 mg PO DAILY [facility] Last Admin: 02/18/17 12:11 Dose: 25 mg Ceftaroline Fosamil 400 mg/ (Dextrose) 100 mls @ 100 mls/hr IVPB BID [facility] PRN Reason: Protocol Last Admin: 02/18/17 22:32 Dose: 100 mls/hr Isosorbide Mononitrate (Imdur -) 30 mg PO DAILY [facility] Last Admin: 02/18/17 12:11 Dose: 30 mg Losartan Potassium (Cozaar -) 50 mg PO BID [facility] Last Admin: 02/18/17 22:31 Dose: 50 mg Metoprolol Tartrate (Lopressor -) 12.5 mg PO DAILY [facility] Last Admin: 02/18/17 12:12 Dose: 12.5 mg Mirtazapine (Remeron -) 15 mg PO DAILY [facility] Last Admin: 02/18/17 10:21 Dose: 15 mg Pramipexole Dihydrochloride (Mirapex -) 0.375 mg PO BID [facility] Last Admin: 02/18/17 22:32 Dose: 0.375 mg Rosuvastatin Calcium (Crestor -) 5 mg PO DAILY [facility] Last Admin: 02/18/17 13:11 Dose: 5 mg Tramadol HCl (Ultram -) 50 mg PO BID PRN PRN Reason: PAIN - Objective Vital Signs: Vital Signs Temperature 98.4 F 02/19/17 06:00 Pulse Rate 68 02/19/17 06:00 Respiratory Rate 18 02/19/17 06:00 Blood Pressure 103/52 02/19/17 06:00 O2 Sat by Pulse Oximetry (%) 97 02/18/17 21:00 Constitutional: Yes: Well Nourished, No Distress, Calm Cardiovascular: Yes: WNL, Pulse Irregular, S1, S2 Respiratory: Yes: Regular Gastrointestinal: Yes: Normal Bowel Sounds Extremities: Yes: Other (Right second toe cellulitis) Wound/Incision: Yes: Other (Right second toe cellulitis) Labs: INR, PTT INR 1.89 (0.82-1.09) H 02/18/17 06:18 - ....Imaging MRI: Report Reviewed Problem List - Problems (1) Cellulitis Assessment/Plan: On IV abx Code(s): L03.90 - CELLULITIS, UNSPECIFIED Qualifiers: Site of cellulitis of extremity: lower extremity Laterality: right (2) Osteomyelitis of foot, right, acute Assessment/Plan: Confirmed by MRI, good candidate for HBO Code(s): M86.171 - OTHER ACUTE OSTEOMYELITIS, RIGHT ANKLE AND FOOT (3) Afib Assessment/Plan: Chronic, Controlled, Continue AC. Code(s): I48.91 - UNSPECIFIED ATRIAL FIBRILLATION Qualifiers: Atrial fibrillation type: paroxysmal Qualified Code(s): I48.0 - Paroxysmal atrial fibrillation (4) Anemia Assessment/Plan: Iron studies, Stool guaiac Code(s): D64.9 - ANEMIA, UNSPECIFIED Qualifiers: Anemia type: unspecified anemia type Assessment/Plan Continue IV abx, AC, plan HBO, PICC.
[2017-02-19] MEDS: ENOXAPARIN NA (PORCINE) 60 MG/0.6 ML DISP.SYRIN SQ SCH ×2 (10:35→21:48)
[2017-02-19] MEDS: FOLIC ACID 1 MG TABLET (FP) PO SCH (10:35)
[2017-02-19] MEDS: METOPROLOL TARTRATE 25 MG TABLET (FP) PO SCH (10:36)
--- NOTE | 2017-02-19 11:42 | PN ---
Physical Exam: SUBJECTIVE: Patient seen and examined patient feels better mri shows osteo with cellulitis afebrile OBJECTIVE: Vital Signs Period Temp Pulse Resp BP Sys/Blackman Pulse Ox Last 24 Hr 97.9 F-98.4 F 67-86 18-20 103-146/52-75 97 GENERAL: Awake, alert, and fully oriented, in no acute distress. LUNGS: Breath sounds equal, clear to auscultation bilaterally. No wheezes, and no crackles. No accessory muscle use. HEART: s1s2 normal UPPER EXTREMITIES: 2+ pulses, warm, well-perfused. LOWER EXTREMITIES: peripheral edema 2+ on right ankle, right foot middle finger erythematous, tender to touch, warm to touch, small around 0.5x0.5 am ulcer on medial aspect of finger, dry, Laboratory Results - last 24 hr 02/19/17 02/19/17 06:30 06:30 ESR 41 H C-Reactive Protein 0.8 H Active Medications Generic Name Dose Route Start Last Admin Trade Name Freq PRN Reason Stop Dose Admin Allopurinol 100 mg 02/18/17 10:00 02/19/17 10:26 Zyloprim - PO 100 mg DAILY [facility] Administration Alprazolam 0.5 mg 02/17/17 19:02 Xanax - PO BID PRN ANXIETY Cholecalciferol 1,000 unit 02/18/17 10:00 02/19/17 10:26 Vitamin D3 - PO 1,000 unit DAILY [facility] Administration Enoxaparin Sodium 60 mg 02/17/17 22:00 02/19/17 10:35 Lovenox - SQ 60 mg BID [facility] Administration Folic Acid 0.5 mg 02/18/17 10:00 02/19/17 10:35 Folic Acid - PO 0.5 mg DAILY [facility] Administration Furosemide 40 mg 02/20/17 10:00 Lasix - PO DAILY [facility] Hydralazine HCl 50 mg 02/17/17 22:00 02/19/17 06:29 Apresoline - PO 50 mg TID [facility] Administration Hydrochlorothiazide 25 mg 02/18/17 10:00 02/19/17 10:27 Hctz - PO 25 mg DAILY [facility] Administration Ceftaroline Fosamil 400 mg/ 100 mls @ 100 mls/hr 02/18/17 22:00 02/19/17 10:33 Dextrose IVPB 100 mls/hr BID [facility] Administration Protocol Isosorbide Mononitrate 30 mg 02/18/17 10:00 02/19/17 10:26 Imdur - PO 30 mg DAILY [facility] Administration Losartan Potassium 50 mg 02/17/17 22:00 02/19/17 10:27 Cozaar - PO 50 mg BID [facility] Administration Metoprolol Tartrate 12.5 mg 02/18/17 10:00 02/19/17 10:36 Lopressor - PO 12.5 mg DAILY [facility] Administration Mirtazapine 15 mg 02/18/17 10:00 02/19/17 10:27 Remeron - PO 15 mg DAILY [facility] Administration Pramipexole Dihydrochloride 0.375 mg 02/17/17 22:00 02/19/17 10:34 Mirapex - PO 0.375 mg BID [facility] Administration Rosuvastatin Calcium 5 mg 02/18/17 10:00 02/19/17 10:28 Crestor - PO 5 mg DAILY [facility] Administration Tramadol HCl 50 mg 02/17/17 19:02 Ultram - PO BID PRN PAIN CBCD WBC 6.3 K/mm3 (4.0-10.0) 02/18/17 06:18 RBC 2.97 M/mm3 (3.60-5.2) L 02/18/17 06:18 Hgb 9.4 GM/dL (10.7-15.3) L 02/18/17 06:18 Hct 27.3 % (32.4-45.2) L 02/18/17 06:18 MCV 91.9 fl (80-96) 02/18/17 06:18 MCHC 34.3 g/dl (32.0-36.0) 02/18/17 06:18 RDW 13.5 % (11.6-15.6) 02/18/17 06:18 Plt Count 153 K/MM3 (134-434) D 02/18/17 06:18 MPV 8.2 fl (7.5-11.1) 02/18/17 06:18 CMP Sodium 131 mmol/L (136-145) L 02/18/17 06:18 Potassium 3.8 mmol/L (3.5-5.1) 02/18/17 06:18 Chloride 98 mmol/L (98-107) 02/18/17 06:18 Carbon Dioxide 23 mmol/L (21-32) 02/18/17 06:18 Anion Gap 10 (8-16) 02/18/17 06:18 BUN 21 mg/dL (7-18) H 02/18/17 06:18 Creatinine 1.3 mg/dL (0.55-1.02) H 02/18/17 06:18 Creat Clearance w eGFR 39.82 (>60) 02/18/17 06:18 Random Glucose 83 mg/dL (74-106) D 02/18/17 06:18 Calcium 9.7 mg/dL (8.5-10.1) 02/18/17 06:18 Total Bilirubin 0.7 mg/dL (0.2-1.0) D 02/18/17 06:18 AST 24 U/L (15-37) 02/18/17 06:18 ALT 20 U/L (12-78) 02/18/17 06:18 Alkaline Phosphatase 94 U/L (45-117) 02/18/17 06:18 Total Protein 6.4 g/dl (6.4-8.2) 02/18/17 06:18 Albumin 3.5 g/dl (3.4-5.0) 02/18/17 06:18 CARDIAC ENZYMES Creatine Kinase 150 IU/L (26-192) D 02/17/17 17:55 Troponin I < 0.02 ng/ml (0.00-0.05) 02/18/17 06:18 ASSESSMENT/PLAN: 76 y/o female with pmh of dvt with progressively increasing swelling, erythema and ulcer on middle finger of right foot( 2 week). Patient had completed a 10 day possible celulitis and osteomyelitis esr 41, crp 0.8 anemia and hyponatremia. Plan continue with IV antibiotics Patient need chcf antibiotic consider picc line. Vascular surgery on case: plan HBO Visit type - Emergency Visit Emergency Visit: Yes ED Registration Date: 02/18/17 Care time: The patient presented to the Emergency Department on the above date and was hospitalized for further evaluation of their emergent condition. - New Patient This patient is new to me today: No - Critical Care Critical Care patient: No
[2017-02-19] MEDS: FUROSEMIDE 40 MG/4 ML INJECTABLE VIAL IVPB SCH (11:56)
--- NOTE | 2017-02-19 14:51 | PN ---
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 Lamas for right foot swelling for several weeks with worsening erythema and lymphangitic spread found initially with a right popliteal DVT during an office visit, no DVT found at the hospital. No chest pain, sob, orthopnea or PND. 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 MRI with osteomyelitis and cellulitis. Getting ABx and HBO. Nuclear stress test 10/16/15 moderate sized posterior wall reversible defect. Normal EF 72%. - Current Medication List Current Medications: Active Medications Allopurinol (Zyloprim -) 100 mg PO DAILY [facility] Last Admin: 02/19/17 10:26 Dose: 100 mg Alprazolam (Xanax -) 0.5 mg PO BID PRN PRN Reason: ANXIETY Cholecalciferol (Vitamin D3 -) 1,000 unit PO DAILY [facility] Last Admin: 02/19/17 10:26 Dose: 1,000 unit Enoxaparin Sodium (Lovenox -) 60 mg SQ BID [facility] Last Admin: 02/19/17 10:35 Dose: 60 mg Folic Acid (Folic Acid -) 0.5 mg PO DAILY [facility] Last Admin: 02/19/17 10:35 Dose: 0.5 mg Furosemide (Lasix -) 40 mg PO DAILY [facility] Hydralazine HCl (Apresoline -) 50 mg PO TID [facility] Last Admin: 02/19/17 06:29 Dose: 50 mg Hydrochlorothiazide (Hctz -) 25 mg PO DAILY [facility] Last Admin: 02/19/17 10:27 Dose: 25 mg Ceftaroline Fosamil 400 mg/ (Dextrose) 100 mls @ 100 mls/hr IVPB BID [facility] PRN Reason: Protocol Last Admin: 02/19/17 10:33 Dose: 100 mls/hr Isosorbide Mononitrate (Imdur -) 30 mg PO DAILY [facility] Last Admin: 02/19/17 10:26 Dose: 30 mg Losartan Potassium (Cozaar -) 50 mg PO BID [facility] Last Admin: 02/19/17 10:27 Dose: 50 mg Metoprolol Tartrate (Lopressor -) 12.5 mg PO DAILY [facility] Last Admin: 02/19/17 10:36 Dose: 12.5 mg Mirtazapine (Remeron -) 15 mg PO DAILY [facility] Last Admin: 02/19/17 10:27 Dose: 15 mg Pramipexole Dihydrochloride (Mirapex -) 0.375 mg PO BID [facility] Last Admin: 02/19/17 10:34 Dose: 0.375 mg Rosuvastatin Calcium (Crestor -) 5 mg PO DAILY [facility] Last Admin: 02/19/17 10:28 Dose: 5 mg Tramadol HCl (Ultram -) 50 mg PO BID PRN PRN Reason: PAIN - Objective Vital Signs: Vital Signs Temperature 97.9 F 02/19/17 10:15 Pulse Rate 86 02/19/17 10:15 Respiratory Rate 18 02/19/17 10:15 Blood Pressure 122/75 02/19/17 10:15 O2 Sat by Pulse Oximetry (%) 99 02/19/17 09:00 Constitutional: Yes: Well Nourished, No Distress Eyes: Yes: WNL HENT: Yes: Atraumatic, Normocephalic Neck: Yes: Supple, Trachea Midline Cardiovascular: Yes: Regular Rate and Rhythm Respiratory: Yes: CTA Bilaterally Gastrointestinal: Yes: Normal Bowel Sounds, Soft Extremities: Yes: WNL, Erythema Edema: No Peripheral Pulses WNL: Yes Labs: INR, PTT INR 1.89 (0.82-1.09) H 02/18/17 06:18 Problem List - Problems (1) Afib Assessment/Plan: No need for further cardiac testing. When stable she is now interested in NOAC, would start Eliquis 5 mg bid or Xarelto 20 mg daily or Pradaxa 150 mg bid depending on insurance coverage. Code(s): I48.91 - UNSPECIFIED ATRIAL FIBRILLATION Qualifiers: Atrial fibrillation type: paroxysmal Qualified Code(s): I48.0 - Paroxysmal atrial fibrillation (2) Preop cardiovascular exam Assessment/Plan: There are no cardiac contraindications to osteomyelitis surgery should the need arise. She is at low to intermediate risk. No further preop testing is needed. She is medically optimized. Code(s): Z01.810 - ENCOUNTER FOR PREPROCEDURAL CARDIOVASCULAR EXAMINATION
--- NOTE | 2017-02-19 14:57 | PN ---
Teaching Attending Note Name of Resident: Uche Roberson ATTENDING PHYSICIAN STATEMENT I saw and evaluated the patient. I reviewed the resident's note and discussed the case with the resident. I agree with the resident's findings and plan as documented. SUBJECTIVE: Reports decreased erythema and swelling R 2nd toe No c/o foot pain No fever/chills OBJECTIVE: + erythema/ swelling R 2nd toe. Dry ulcer ASSESSMENT AND PLAN: Cellulitis/ osteomyelitis R 2nd toe Await wound c/s Continue ceftaroline
[2017-02-19] MEDS ORDERED: PT OWN MED DRAWER 7, Y5N ONE (20:41)
[2017-02-20] MEDS: hydrALAZINE HCL 50 MG TABLET (FP) PO SCH ×3 (06:31→23:29)
[2017-02-20 08:02] LABS: BASOPHIL 0.9 % (0-2.0); EOSINOPHIL 3.1 % (0-4.5); MCH 31.7 pg (25.7-33.7); MCHC 34.8 g/dl (32.0-36.0); MEAN CELL VOLUME 91.2 fl (80-96); MEAN PLT VOLUME 8.2 fl (7.5-11.1); NEUTROPHILS 58.8 % (42.8-82.8); PLATELET COUNT 177 K/MM3 (134-434); RDW 13.1 % (11.6-15.6); WHITE BLOOD COUNT 5.9 K/mm3 (4.0-10.0)
[2017-02-20 08:54] LABS: FERRITIN 217.034 ng/ml (6.9-282.5); FREE T4 1.04 ng/dl (0.76-1.46); THYROID STIMULATING HORMONE 0.82 uIU/ml (0.358-3.74)
[2017-02-20] MEDS ORDERED: PT OWN MED DRAWER 7, Y5N ONE (09:30)
[2017-02-20] MEDS: FUROSEMIDE 40 MG TABLET (FP) PO SCH (09:32)
[2017-02-20] MEDS: LOSARTAN POTASSIUM 50 MG TABLET (FP) PO SCH ×2 (09:32→23:29)
[2017-02-20] MEDS: ENOXAPARIN NA (PORCINE) 60 MG/0.6 ML DISP.SYRIN SQ SCH ×2 (09:32→23:29)
[2017-02-20] MEDS: METOPROLOL TARTRATE 25 MG TABLET (FP) PO SCH (09:33)
--- NOTE | 2017-02-20 09:34 | PN ---
Progress Note, Physician Chief Complaint: Cellulitis with osteomyelitis History of Present Illness: Cellulitis of right second toe. MRI reveals osteomyelitis. Candidate for HBO tx as per Vascular. Continue IV abx. Furosemide changed to PO. Patient has poor IV access, may need PICC. - Current Medication List Current Medications: Active Medications Allopurinol (Zyloprim -) 100 mg PO DAILY [facility] Last Admin: 02/19/17 10:26 Dose: 100 mg Alprazolam (Xanax -) 0.5 mg PO BID PRN PRN Reason: ANXIETY Last Admin: 02/19/17 18:19 Dose: 0.5 mg Cholecalciferol (Vitamin D3 -) 1,000 unit PO DAILY [facility] Last Admin: 02/19/17 10:26 Dose: 1,000 unit Enoxaparin Sodium (Lovenox -) 60 mg SQ BID [facility] Last Admin: 02/19/17 21:48 Dose: 60 mg Folic Acid (Folic Acid -) 0.5 mg PO DAILY [facility] Last Admin: 02/19/17 10:35 Dose: 0.5 mg Furosemide (Lasix -) 40 mg PO DAILY [facility] Hydralazine HCl (Apresoline -) 50 mg PO TID [facility] Last Admin: 02/20/17 06:31 Dose: Not Given Hydrochlorothiazide (Hctz -) 25 mg PO DAILY [facility] Last Admin: 02/19/17 10:27 Dose: 25 mg Ceftaroline Fosamil 400 mg/ (Dextrose) 100 mls @ 100 mls/hr IVPB BID [facility] PRN Reason: Protocol Last Admin: 02/19/17 21:49 Dose: 100 mls/hr Isosorbide Mononitrate (Imdur -) 30 mg PO DAILY [facility] Last Admin: 02/19/17 10:26 Dose: 30 mg Losartan Potassium (Cozaar -) 50 mg PO BID [facility] Last Admin: 02/19/17 21:48 Dose: Not Given Metoprolol Tartrate (Lopressor -) 12.5 mg PO DAILY [facility] Last Admin: 02/19/17 10:36 Dose: 12.5 mg Mirtazapine (Remeron -) 15 mg PO DAILY [facility] Last Admin: 02/19/17 10:27 Dose: 15 mg Pramipexole Dihydrochloride (Mirapex -) 0.375 mg PO BID [facility] Last Admin: 02/19/17 21:48 Dose: 0.375 mg Rosuvastatin Calcium (Crestor -) 5 mg PO DAILY [facility] Last Admin: 02/19/17 10:28 Dose: 5 mg Tramadol HCl (Ultram -) 50 mg PO BID PRN PRN Reason: PAIN - Objective Vital Signs: Vital Signs Temperature 98.6 F 02/20/17 06:00 Pulse Rate 60 02/20/17 06:00 Respiratory Rate 20 02/20/17 06:00 Blood Pressure 112/57 02/20/17 06:00 O2 Sat by Pulse Oximetry (%) 97 02/19/17 21:00 Constitutional: Yes: Well Nourished, No Distress, Calm Cardiovascular: Yes: Pulse Irregular Respiratory: Yes: WNL, Regular Gastrointestinal: Yes: Normal Bowel Sounds Edema: No Peripheral Pulses WNL: Yes Peripheral Pulses: Left Doralis Pedis: 2+, Right Dorsalis Pedis: 2+ Additional Findings/Remarks: Wound culture reviewed Labs: CBC, BMP 02/20/17 06:30 INR, PTT INR 1.89 (0.82-1.09) H 02/18/17 06:18 - ....Imaging MRI: Report Reviewed Problem List - Problems (1) Cellulitis Assessment/Plan: On IV abx Code(s): L03.90 - CELLULITIS, UNSPECIFIED Qualifiers: Site of cellulitis of extremity: lower extremity Laterality: right (2) Osteomyelitis of foot, right, acute Assessment/Plan: Confirmed by MRI, awaiting HBO as per Vascular Code(s): M86.171 - OTHER ACUTE OSTEOMYELITIS, RIGHT ANKLE AND FOOT (3) Afib Assessment/Plan: Chronic, Controlled, Continue AC. Code(s): I48.91 - UNSPECIFIED ATRIAL FIBRILLATION Qualifiers: Atrial fibrillation type: paroxysmal Qualified Code(s): I48.0 - Paroxysmal atrial fibrillation (4) Anemia Assessment/Plan: Iron studies, Stool guaiac pending Code(s): D64.9 - ANEMIA, UNSPECIFIED Qualifiers: Anemia type: unspecified anemia type Assessment/Plan Awaiting PICC insertion and HBO. Plan D/C accordingly.
[2017-02-20] MEDS: HYDROCHLOROTHIAZIDE 12.5 MG CAPSULE (FP) PO SCH (09:37)
[2017-02-20] MEDS: ISOSORBIDE MONONITRATE 30 MG TAB.SR.24H (FP) PO SCH (09:37)
[2017-02-20] MEDS: ALLOPURINOL 100 MG TABLET (FP) PO SCH (09:37)
[2017-02-20] MEDS: FOLIC ACID 1 MG TABLET (FP) PO SCH (09:37)
[2017-02-20] MEDS: CEFTAROLINE FOSAMIL ACETATE 400 MG in DEXTROSE 5%-WATER - 100 ML IVPB SCH (09:43)
[2017-02-20] MEDS: PRAMIPEXOLE DIHYDROCHLORIDE 0.125 MG TABLET PO SCH ×2 (09:43→23:30)
--- NOTE | 2017-02-20 09:59 | PN ---
Physical Exam: SUBJECTIVE: Patient seen and examined feels better states swelling in toe has decreased erythema has decreased. afebrile wbc in normal limit OBJECTIVE: Vital Signs Period Temp Pulse Resp BP Sys/Blackman Pulse Ox Last 24 Hr 97.5 F-98.6 F 60-86 18-20 93-122/55-75 97 GENERAL: Awake, alert, and fully oriented, in no acute distress. LUNGS: Breath sounds equal, clear to auscultation bilaterally. No wheezes, and no crackles. No accessory muscle use. HEART: s1s2 normal UPPER EXTREMITIES: 2+ pulses, warm, well-perfused. LOWER EXTREMITIES: right foot, erythema and swelling from toe, non tender, local temp not elevated. 0.5x0.5 ulcer present on medial aspect of toe. no discharge. Laboratory Results - last 24 hr 02/19/17 02/20/17 02/20/17 06:30 06:30 06:30 WBC RBC Hgb Hct MCV MCHC RDW Plt Count MPV Neutrophils % Lymphocytes % Monocytes % Eosinophils % Basophils % ESR 41 H Retic Count 1.00 D Ferritin 217.034 TSH 0.82 Free T4 1.04 02/20/17 06:30 WBC 5.9 RBC 2.89 L Hgb 9.2 L Hct 26.3 L MCV 91.2 MCHC 34.8 RDW 13.1 Plt Count 177 MPV 8.2 Neutrophils % 58.8 Lymphocytes % 29.1 Monocytes % 8.1 Eosinophils % 3.1 Basophils % 0.9 ESR Retic Count Ferritin TSH Free T4 Active Medications Generic Name Dose Route Start Last Admin Trade Name Freq PRN Reason Stop Dose Admin Allopurinol 100 mg 02/18/17 10:00 02/20/17 09:37 Zyloprim - PO 100 mg DAILY [facility] Administration Alprazolam 0.5 mg 02/17/17 19:02 02/19/17 18:19 Xanax - PO 0.5 mg BID PRN Administration ANXIETY Cholecalciferol 1,000 unit 02/18/17 10:00 02/19/17 10:26 Vitamin D3 - PO 1,000 unit DAILY [facility] Administration Enoxaparin Sodium 60 mg 02/17/17 22:00 02/20/17 09:32 Lovenox - SQ 60 mg BID [facility] Administration Folic Acid 0.5 mg 02/18/17 10:00 02/20/17 09:37 Folic Acid - PO 0.5 mg DAILY [facility] Administration Furosemide 40 mg 02/20/17 10:00 02/20/17 09:32 Lasix - PO 40 mg DAILY [facility] Administration Hydralazine HCl 50 mg 02/17/17 22:00 02/20/17 06:31 Apresoline - PO Not Given TID [facility] Hydrochlorothiazide 25 mg 02/18/17 10:00 02/20/17 09:37 Hctz - PO 25 mg DAILY [facility] Administration Ceftaroline Fosamil 400 mg/ 100 mls @ 100 mls/hr 02/18/17 22:00 02/20/17 09:43 Dextrose IVPB 100 mls/hr BID [facility] Administration Protocol Isosorbide Mononitrate 30 mg 02/18/17 10:00 02/20/17 09:37 Imdur - PO 30 mg DAILY [facility] Administration Losartan Potassium 50 mg 02/17/17 22:00 02/20/17 09:32 Cozaar - PO 50 mg BID [facility] Administration Metoprolol Tartrate 12.5 mg 02/18/17 10:00 02/20/17 09:33 Lopressor - PO 12.5 mg DAILY [facility] Administration Mirtazapine 15 mg 02/18/17 10:00 02/19/17 10:27 Remeron - PO 15 mg DAILY [facility] Administration Pramipexole Dihydrochloride 0.375 mg 02/17/17 22:00 02/20/17 09:43 Mirapex - PO 0.375 mg BID [facility] Administration Rosuvastatin Calcium 5 mg 02/18/17 10:00 02/19/17 10:28 Crestor - PO 5 mg DAILY [facility] Administration Tramadol HCl 50 mg 02/17/17 19:02 Ultram - PO BID PRN PAIN Microbiology 02/17/17 17:55 Blood - Peripheral Venous Blood Culture - Preliminary NO GROWTH OBTAINED AFTER 48 HOURS, INCUBATION TO CONTINUE FOR 3 DAYS. 02/17/17 17:55 Blood - Peripheral Venous Blood Culture - Preliminary NO GROWTH OBTAINED AFTER 48 HOURS, INCUBATION TO CONTINUE FOR 3 DAYS. 02/18/17 10:45 Ulcer Gram Stain - Final 02/18/17 10:45 Ulcer Wound Culture - Preliminary Staphylococcus Coagulase Neg ASSESSMENT/PLAN: 76 y/o female with pmh of dvt with progressively increasing swelling, erythema and ulcer on middle finger of right foot( 2 week). Patient had completed a 10 day possible celulitis and osteomyelitis esr 41, crp 0.8 Plan will switch from Ceftaroline to IV vancomycin 1gm daily for 6 week and PO levaquin 250 daily for 6 week Patient needs long course of antibiotics. repeat esr and crp after 7 days. follow renal function Awaiting PICC insertion and HBO. Visit type - Emergency Visit Emergency Visit: Yes ED Registration Date: 02/18/17 Care time: The patient presented to the Emergency Department on the above date and was hospitalized for further evaluation of their emergent condition. - New Patient This patient is new to me today: No - Critical Care Critical Care patient: No
[2017-02-20] MEDS: CHOLECALCIFEROL (VITAMIN D3) 1,000 UNIT TABLET (FP) PO SCH (11:57)
[2017-02-20] MEDS: MIRTAZAPINE 15 MG TABLET (FP) PO SCH ×2 (11:58→23:30)
[2017-02-20] MEDS: ROSUVASTATIN CA 5 MG TABLET (FP) PO SCH ×2 (11:58→23:29)
[2017-02-20 13:58] LABS: CALCIUM 9.4 mg/dL (8.5-10.1); COCKROFT - GAULT 26.571; CREATININE 1.8 mg/dL (0.55-1.02)
[2017-02-20] MEDS ORDERED: VANCOMYCIN 1 GRAM (PRE-DOCKED) 1,000 MG/250 ML BAG IVPB ONE (14:00)
--- NOTE | 2017-02-20 14:03 | PN ---
Teaching Attending Note Name of Resident: Uche Roberson ATTENDING PHYSICIAN STATEMENT I saw and evaluated the patient. I reviewed the resident's note and discussed the case with the resident. I agree with the resident's findings and plan as documented. SUBJECTIVE: has some pain when she walks OBJECTIVE: Vital Signs Period Temp Pulse Resp BP Sys/Blackman Pulse Ox Last 24 Hr 97.5 F-98.6 F 60-85 18-20 93-112/55-64 97 cor-rrr lungs clear abd ost,nt ext still with edema /erythema of the second toe CBC, BMP 02/20/17 06:30 mri-cellulitis/osteo ASSESSMENT AND PLAN: acute osteomyelitis cellulitis no plans for debridement empiric vancomycin 1 gram daily for 6 weeks levaquin po 250 daily for 6 weeks she is aware of need for detention iv antibiotics follow renal function follow vanco levels Problem List - Problems (1) Cellulitis Code(s): L03.90 - CELLULITIS, UNSPECIFIED Qualifiers: Site of cellulitis of extremity: lower extremity Laterality: right (2) Osteomyelitis of foot, right, acute Code(s): M86.171 - OTHER ACUTE OSTEOMYELITIS, RIGHT ANKLE AND FOOT
[2017-02-20] MEDS: LACTOBACILLUS ACIDOPHILUS 1 EACH TAB (FP) PO SCH (15:35)
[2017-02-21] MEDS: LEVOFLOXACIN 250 MG TABLET (FP) PO SCH (06:43)
[2017-02-21] MEDS: hydrALAZINE HCL 50 MG TABLET (FP) PO SCH ×3 (06:43→22:46)
[2017-02-21 08:10] LABS: IGG IMMUNOGLOBULIN 651 mg/dL (700-1600); IGM IMMUNOGLOBULIN 33 mg/dL (26-217)
[2017-02-21] MEDS ORDERED: PT OWN MED DRAWER 7, Y5N ONE (10:40)
[2017-02-21] MEDS: FOLIC ACID 1 MG TABLET (FP) PO SCH (10:48)
[2017-02-21] MEDS: ALLOPURINOL 100 MG TABLET (FP) PO SCH (10:48)
[2017-02-21] MEDS: ENOXAPARIN NA (PORCINE) 60 MG/0.6 ML DISP.SYRIN SQ SCH ×2 (10:49→22:46)
[2017-02-21] MEDS: CHOLECALCIFEROL (VITAMIN D3) 1,000 UNIT TABLET (FP) PO SCH (10:49)
[2017-02-21] MEDS: METOPROLOL TARTRATE 25 MG TABLET (FP) PO SCH ×2 (10:50→12:36)
[2017-02-21] MEDS: LOSARTAN POTASSIUM 50 MG TABLET (FP) PO SCH ×3 (10:50→22:46)
[2017-02-21] MEDS: ISOSORBIDE MONONITRATE 30 MG TAB.SR.24H (FP) PO SCH ×2 (10:50→12:36)
[2017-02-21] MEDS: HYDROCHLOROTHIAZIDE 12.5 MG CAPSULE (FP) PO SCH ×2 (10:50→12:36)
[2017-02-21] MEDS: LACTOBACILLUS ACIDOPHILUS 1 EACH TAB (FP) PO SCH (10:50)
[2017-02-21] MEDS: PRAMIPEXOLE DIHYDROCHLORIDE 0.125 MG TABLET PO SCH ×2 (10:51→22:47)
--- NOTE | 2017-02-21 11:39 | PN ---
Progress Note, Physician History of Present Illness: FOOT PAIN - Current Medication List Current Medications: Active Medications Allopurinol (Zyloprim -) 100 mg PO DAILY [facility] Last Admin: 02/21/17 10:48 Dose: 100 mg Cholecalciferol (Vitamin D3 -) 1,000 unit PO DAILY [facility] Last Admin: 02/21/17 10:49 Dose: 1,000 unit Enoxaparin Sodium (Lovenox -) 60 mg SQ BID [facility] Last Admin: 02/21/17 10:49 Dose: 60 mg Folic Acid (Folic Acid -) 0.5 mg PO DAILY [facility] Last Admin: 02/21/17 10:48 Dose: 0.5 mg Furosemide (Lasix -) 40 mg PO DAILY [facility] Last Admin: 02/20/17 09:32 Dose: 40 mg Hydralazine HCl (Apresoline -) 50 mg PO TID [facility] Last Admin: 02/21/17 06:43 Dose: 50 mg Hydrochlorothiazide (Hctz -) 25 mg PO DAILY [facility] Last Admin: 02/21/17 10:50 Dose: Not Given Vancomycin HCl (Vancomycin (Pre-Docked)) 250 mls @ 150 mls/hr IVPB DAILY@1400 [facility] PRN Reason: Protocol Isosorbide Mononitrate (Imdur -) 30 mg PO DAILY [facility] Last Admin: 02/21/17 10:50 Dose: Not Given Lactobacillus Acidophilus (Bacid -) 1 tab PO DAILY [facility] Last Admin: 02/21/17 10:50 Dose: 1 tab Levofloxacin (Levaquin -) 250 mg PO DAILY@0600 [facility] Last Admin: 02/21/17 06:43 Dose: 250 mg Losartan Potassium (Cozaar -) 50 mg PO BID [facility] Last Admin: 02/21/17 10:50 Dose: Not Given Metoprolol Tartrate (Lopressor -) 12.5 mg PO DAILY [facility] Last Admin: 02/21/17 10:50 Dose: Not Given Mirtazapine (Remeron -) 15 mg PO [facility] Last Admin: 02/20/17 23:30 Dose: 15 mg Pramipexole Dihydrochloride (Mirapex -) 0.375 mg PO BID [facility] Last Admin: 02/21/17 10:51 Dose: 0.375 mg Rosuvastatin Calcium (Crestor -) 5 mg PO [facility] Last Admin: 02/20/17 23:29 Dose: 5 mg - Objective Vital Signs: Vital Signs Temperature 98.2 F 02/21/17 09:53 Pulse Rate 48 L 02/21/17 09:53 Respiratory Rate 18 02/21/17 09:53 Blood Pressure 115/59 02/21/17 06:00 O2 Sat by Pulse Oximetry (%) 95 02/20/17 21:00 Cardiovascular: Yes: Regular Rate and Rhythm Respiratory: Yes: Regular, CTA Bilaterally Gastrointestinal: Yes: Normal Bowel Sounds, Soft Extremities: Yes: Erythema Edema: Yes Labs: CBC, BMP 02/20/17 06:30 02/20/17 06:30 INR, PTT INR 1.89 (0.82-1.09) H 02/18/17 06:18 Problem List - Problems (1) Osteomyelitis of foot, right, acute Assessment/Plan: IV ABX PICC LINE FOR SKILLED NURSING ABX Code(s): M86.171 - OTHER ACUTE OSTEOMYELITIS, RIGHT ANKLE AND FOOT (2) Afib Assessment/Plan: RESUME COUMADIN FOLLOW INR LOVENOX Code(s): I48.91 - UNSPECIFIED ATRIAL FIBRILLATION Qualifiers: Atrial fibrillation type: paroxysmal Qualified Code(s): I48.0 - Paroxysmal atrial fibrillation (3) HTN (hypertension) Assessment/Plan: SAME MEDS Code(s): I10 - ESSENTIAL (PRIMARY) HYPERTENSION Qualifiers: Hypertension type: unspecified secondary hypertension Qualified Code(s) : I15.9 - Secondary hypertension, unspecified; I15 - Secondary hypertension
[2017-02-21] MEDS: FUROSEMIDE 40 MG TABLET (FP) PO SCH (12:36)
[2017-02-21] MEDS: VANCOMYCIN 1 GRAM (PRE-DOCKED) 250 ML IVPB SCH (14:40)
[2017-02-21] MEDS: ALPRAZolam 0.25 MG TABLET PO PRN (15:43)
[2017-02-21] MEDS: WARFARIN NA 5 MG TABLET (UD) PO SCH (17:29)
[2017-02-21] MEDS: ROSUVASTATIN CA 5 MG TABLET (FP) PO SCH (22:46)
[2017-02-21] MEDS: MIRTAZAPINE 15 MG TABLET (FP) PO SCH (22:46)
[2017-02-22] MEDS: hydrALAZINE HCL 50 MG TABLET (FP) PO SCH ×3 (05:50→22:28)
[2017-02-22] MEDS: LEVOFLOXACIN 250 MG TABLET (FP) PO SCH (05:50)
[2017-02-22 08:07] LABS: HEMATOCRIT 25.9 % (34.0-46.6)
[2017-02-22 08:33] LABS: BASOPHIL 0.6 % (0-2.0); EOSINOPHIL 3.8 % (0-4.5); MCH 31.7 pg (25.7-33.7); MCHC 35.2 g/dl (32.0-36.0); MEAN CELL VOLUME 90.1 fl (80-96); MEAN PLT VOLUME 8.3 fl (7.5-11.1); NEUTROPHILS 61.9 % (42.8-82.8); PLATELET COUNT 151 K/MM3 (134-434); RDW 12.9 % (11.6-15.6); WHITE BLOOD COUNT 5.8 K/mm3 (4.0-10.0)
[2017-02-22 08:53] LABS: INR 1.19 (0.82-1.09); PROTHROMBIN TIME (PATIENT) 13.1 SEC (9.98-11.88)
[2017-02-22 09:09] LABS: ALBUMIN 3.2 g/dl (3.4-5.0); CALCIUM 9.3 mg/dL (8.5-10.1); COCKROFT - GAULT 23.919
[2017-02-22 09:10] LABS: BILIRUBIN,TOTAL 0.4 mg/dL (0.2-1.0); TOT PROT 5.8 g/dl (6.4-8.2)
--- NOTE | 2017-02-22 09:43 | PN ---
Progress Note, Physician History of Present Illness: FOOT PAIN - Current Medication List Current Medications: Active Medications Allopurinol (Zyloprim -) 100 mg PO DAILY [facility] Last Admin: 02/21/17 10:48 Dose: 100 mg Alprazolam (Xanax -) 0.5 mg PO BID PRN Last Admin: 02/21/17 15:43 Dose: 0.5 mg Cholecalciferol (Vitamin D3 -) 1,000 unit PO DAILY [facility] Last Admin: 02/21/17 10:49 Dose: 1,000 unit Enoxaparin Sodium (Lovenox -) 60 mg SQ BID [facility] Last Admin: 02/21/17 22:46 Dose: 60 mg Folic Acid (Folic Acid -) 0.5 mg PO DAILY [facility] Last Admin: 02/21/17 10:48 Dose: 0.5 mg Hydralazine HCl (Apresoline -) 50 mg PO TID [facility] Last Admin: 02/22/17 05:50 Dose: Not Given Vancomycin HCl (Vancomycin (Pre-Docked)) 250 mls @ 150 mls/hr IVPB DAILY@1400 [facility] PRN Reason: Protocol Last Admin: 02/21/17 14:40 Dose: 150 mls/hr Sodium Chloride (Normal Saline -) 1,000 mls @ 42 mls/hr IV ASDIR [facility] Isosorbide Mononitrate (Imdur -) 30 mg PO DAILY [facility] Last Admin: 02/21/17 12:36 Dose: 30 mg Lactobacillus Acidophilus (Bacid -) 1 tab PO DAILY [facility] Last Admin: 02/21/17 10:50 Dose: 1 tab Levofloxacin (Levaquin -) 250 mg PO DAILY@0600 [facility] Last Admin: 02/22/17 05:50 Dose: 250 mg Losartan Potassium (Cozaar -) 50 mg PO BID [facility] Last Admin: 02/21/17 22:46 Dose: Not Given Metoprolol Tartrate (Lopressor -) 12.5 mg PO DAILY [facility] Last Admin: 02/21/17 12:36 Dose: 12.5 mg Mirtazapine (Remeron -) 15 mg PO HS [facility] Last Admin: 02/21/17 22:46 Dose: 15 mg Pramipexole Dihydrochloride (Mirapex -) 0.375 mg PO BID [facility] Last Admin: 02/21/17 22:47 Dose: 0.375 mg Rosuvastatin Calcium (Crestor -) 5 mg PO HS [facility] Last Admin: 02/21/17 22:46 Dose: 5 mg Warfarin Sodium (Coumadin -) 5 mg PO DAILY@1800 [facility] Last Admin: 02/21/17 17:29 Dose: 5 mg - Objective Vital Signs: Vital Signs Temperature 98.0 F 02/22/17 06:00 Pulse Rate 56 L 02/22/17 06:00 Respiratory Rate 16 02/22/17 06:00 Blood Pressure 106/70 02/22/17 06:00 O2 Sat by Pulse Oximetry (%) 98 02/21/17 22:00 Cardiovascular: Yes: S1, S2 Respiratory: Yes: Regular, CTA Bilaterally Gastrointestinal: Yes: Normal Bowel Sounds, Soft Musculoskeletal: Yes: Joint Swelling Edema: Yes Labs: CBC, BMP 02/22/17 07:10 02/22/17 07:10 INR, PTT INR 1.19 (0.82-1.09) H D 02/22/17 07:10 Problem List - Problems (1) Osteomyelitis of foot, right, acute Assessment/Plan: IV ABX PICC LINE FOR [facility] ABX Code(s): M86.171 - OTHER ACUTE OSTEOMYELITIS, RIGHT ANKLE AND FOOT (2) Afib Assessment/Plan: RESUME COUMADIN FOLLOW INR LOVENOX Code(s): I48.91 - UNSPECIFIED ATRIAL FIBRILLATION Qualifiers: Atrial fibrillation type: paroxysmal Qualified Code(s): I48.0 - Paroxysmal atrial fibrillation (3) HTN (hypertension) Assessment/Plan: SAME MEDS Code(s): I10 - ESSENTIAL (PRIMARY) HYPERTENSION Qualifiers: Hypertension type: unspecified secondary hypertension Qualified Code(s) : I15.9 - Secondary hypertension, unspecified; I15 - Secondary hypertension (4) Hyponatremia Assessment/Plan: DC DIURETICS NS MONITOR Code(s): E87.1 - HYPO-OSMOLALITY AND HYPONATREMIA (5) CHF (congestive heart failure) Assessment/Plan: NO S/S OF FAILURE MONITOR OF DIURETICS Code(s): I50.9 - HEART FAILURE, UNSPECIFIED
[2017-02-22] MEDS: SODIUM CHLORIDE 1,000 ML IV SCH (09:56)
[2017-02-22] MEDS: LACTOBACILLUS ACIDOPHILUS 1 EACH TAB (FP) PO SCH (11:09)
[2017-02-22] MEDS: ALLOPURINOL 100 MG TABLET (FP) PO SCH (11:09)
[2017-02-22] MEDS: CHOLECALCIFEROL (VITAMIN D3) 1,000 UNIT TABLET (FP) PO SCH (11:09)
[2017-02-22] MEDS: FOLIC ACID 1 MG TABLET (FP) PO SCH (11:10)
[2017-02-22] MEDS: METOPROLOL TARTRATE 25 MG TABLET (FP) PO SCH (11:10)
[2017-02-22] MEDS: ISOSORBIDE MONONITRATE 30 MG TAB.SR.24H (FP) PO SCH (11:10)
[2017-02-22] MEDS: LOSARTAN POTASSIUM 50 MG TABLET (FP) PO SCH ×2 (11:11→22:28)
[2017-02-22] MEDS: ENOXAPARIN NA (PORCINE) 60 MG/0.6 ML DISP.SYRIN SQ SCH ×2 (11:11→22:29)
[2017-02-22] MEDS ORDERED: PT OWN MED DRAWER 7, Y5N ONE (11:14)
[2017-02-22] MEDS: PRAMIPEXOLE DIHYDROCHLORIDE 0.125 MG TABLET PO SCH ×2 (11:18→22:29)
[2017-02-22] MEDS: VANCOMYCIN 1 GRAM (PRE-DOCKED) 250 ML IVPB SCH (14:17)
[2017-02-22] MEDS: traMADol HCL 50 MG TABLET PO PRN (17:55)
[2017-02-22] MEDS: WARFARIN NA 5 MG TABLET (UD) PO SCH (17:56)
[2017-02-22] MEDS: MIRTAZAPINE 15 MG TABLET (FP) PO SCH (22:29)
[2017-02-22] MEDS: ROSUVASTATIN CA 5 MG TABLET (FP) PO SCH (22:29)
[2017-02-22] MEDS: ALPRAZolam 0.25 MG TABLET PO PRN (23:28)
[2017-02-23] MEDS: LEVOFLOXACIN 250 MG TABLET (FP) PO SCH (05:21)
[2017-02-23] MEDS: hydrALAZINE HCL 50 MG TABLET (FP) PO SCH ×3 (05:22→21:25)
[2017-02-23] MEDS: traMADol HCL 50 MG TABLET PO PRN (05:22)
[2017-02-23 08:17] LABS: BASOPHIL 0.4 % (0-2.0); EOSINOPHIL 3.7 % (0-4.5); MCH 31.5 pg (25.7-33.7); MCHC 34.9 g/dl (32.0-36.0); MEAN CELL VOLUME 90.3 fl (80-96); MEAN PLT VOLUME 8.3 fl (7.5-11.1); NEUTROPHILS 67.1 % (42.8-82.8); PLATELET COUNT 153 K/MM3 (134-434); RDW 12.8 % (11.6-15.6); WHITE BLOOD COUNT 6.3 K/mm3 (4.0-10.0)
[2017-02-23 08:30] LABS: INR 1.19 (0.82-1.09); PROTHROMBIN TIME (PATIENT) 13.1 SEC (9.98-11.88)
[2017-02-23 08:43] LABS: CALCIUM 8.7 mg/dL (8.5-10.1)
[2017-02-23 08:48] LABS: BILIRUBIN,TOTAL 0.6 mg/dL (0.2-1.0); COCKROFT - GAULT 29.8945; CREATININE 1.6 mg/dL (0.55-1.02); TOT PROT 5.7 g/dl (6.4-8.2)
[2017-02-23] MEDS ORDERED: PT OWN MED DRAWER 7, Y5N ONE ×4 (10:32→20:07)
[2017-02-23] MEDS: ALLOPURINOL 100 MG TABLET (FP) PO SCH (10:55)
[2017-02-23] MEDS: ENOXAPARIN NA (PORCINE) 60 MG/0.6 ML DISP.SYRIN SQ SCH ×2 (10:55→21:26)
[2017-02-23] MEDS: ISOSORBIDE MONONITRATE 30 MG TAB.SR.24H (FP) PO SCH (10:56)
[2017-02-23] MEDS: FOLIC ACID 1 MG TABLET (FP) PO SCH (10:56)
[2017-02-23] MEDS: METOPROLOL TARTRATE 25 MG TABLET (FP) PO SCH (10:56)
[2017-02-23] MEDS: LOSARTAN POTASSIUM 50 MG TABLET (FP) PO SCH ×2 (10:56→21:25)
[2017-02-23] MEDS: CHOLECALCIFEROL (VITAMIN D3) 1,000 UNIT TABLET (FP) PO SCH (10:56)
[2017-02-23] MEDS: PRAMIPEXOLE DIHYDROCHLORIDE 0.125 MG TABLET PO SCH ×2 (10:57→21:26)
[2017-02-23] MEDS: LACTOBACILLUS ACIDOPHILUS 1 EACH TAB (FP) PO SCH (10:57)
--- NOTE | 2017-02-23 11:33 | PN ---
Progress Note, Physician History of Present Illness: FOOT PAIN LESS NO CP OR SOB - Current Medication List Current Medications: Active Medications Allopurinol (Zyloprim -) 100 mg PO DAILY [facility] Last Admin: 02/23/17 10:55 Dose: 100 mg Alprazolam (Xanax -) 0.5 mg PO BID PRN Last Admin: 02/22/17 23:28 Dose: 0.5 mg Cholecalciferol (Vitamin D3 -) 1,000 unit PO DAILY [facility] Last Admin: 02/23/17 10:56 Dose: 1,000 unit Enoxaparin Sodium (Lovenox -) 60 mg SQ BID [facility] Last Admin: 02/23/17 10:55 Dose: 60 mg Folic Acid (Folic Acid -) 0.5 mg PO DAILY [facility] Last Admin: 02/23/17 10:56 Dose: 0.5 mg Hydralazine HCl (Apresoline -) 50 mg PO TID [facility] Last Admin: 02/23/17 05:22 Dose: 50 mg Vancomycin HCl (Vancomycin (Pre-Docked)) 250 mls @ 150 mls/hr IVPB DAILY@1400 [facility] PRN Reason: Protocol Last Admin: 02/22/17 14:17 Dose: 150 mls/hr Sodium Chloride (Normal Saline -) 1,000 mls @ 42 mls/hr IV ASDIR [facility] Last Admin: 02/22/17 09:56 Dose: 42 mls/hr Isosorbide Mononitrate (Imdur -) 30 mg PO DAILY [facility] Last Admin: 02/23/17 10:56 Dose: 30 mg Lactobacillus Acidophilus (Bacid -) 1 tab PO DAILY [facility] Last Admin: 02/23/17 10:57 Dose: 1 tab Levofloxacin (Levaquin -) 250 mg PO DAILY@0600 [facility] Last Admin: 02/23/17 05:21 Dose: 250 mg Losartan Potassium (Cozaar -) 50 mg PO BID [facility] Last Admin: 02/23/17 10:56 Dose: 50 mg Metoprolol Tartrate (Lopressor -) 12.5 mg PO DAILY [facility] Last Admin: 02/23/17 10:56 Dose: 12.5 mg Mirtazapine (Remeron -) 15 mg PO HS [facility] Last Admin: 02/22/17 22:29 Dose: 15 mg Pramipexole Dihydrochloride (Mirapex -) 0.375 mg PO BID [facility] Last Admin: 02/23/17 10:57 Dose: 0.375 mg Rosuvastatin Calcium (Crestor -) 5 mg PO HS [facility] Last Admin: 02/22/17 22:29 Dose: 5 mg Tramadol HCl (Ultram -) 50 mg PO Q8H PRN PRN Reason: PAIN Last Admin: 02/23/17 05:22 Dose: 50 mg Warfarin Sodium (Coumadin -) 5 mg PO DAILY@1800 [facility] Last Admin: 02/22/17 17:56 Dose: 5 mg - Objective Vital Signs: Vital Signs Temperature 97.4 F L 02/23/17 06:00 Pulse Rate 53 L 02/23/17 06:00 Respiratory Rate 18 02/23/17 06:00 Blood Pressure 141/62 02/23/17 06:00 O2 Sat by Pulse Oximetry (%) 97 02/22/17 22:00 Cardiovascular: Yes: Murmur, S1, S2 Respiratory: Yes: Regular, CTA Bilaterally Gastrointestinal: Yes: Normal Bowel Sounds, Soft Edema: No Labs: CBC, BMP 02/23/17 07:10 02/23/17 07:10 INR, PTT INR 1.19 (0.82-1.09) H 02/23/17 07:10 Problem List - Problems (1) Osteomyelitis of foot, right, acute Assessment/Plan: IV ABX PICC LINE FOR [facility] ABX Code(s): M86.171 - OTHER ACUTE OSTEOMYELITIS, RIGHT ANKLE AND FOOT (2) Afib Assessment/Plan: RESUME COUMADIN FOLLOW INR LOVENOX Code(s): I48.91 - UNSPECIFIED ATRIAL FIBRILLATION Qualifiers: Atrial fibrillation type: paroxysmal Qualified Code(s): I48.0 - Paroxysmal atrial fibrillation (3) HTN (hypertension) Assessment/Plan: SAME MEDS Code(s): I10 - ESSENTIAL (PRIMARY) HYPERTENSION Qualifiers: Hypertension type: unspecified secondary hypertension Qualified Code(s) : I15.9 - Secondary hypertension, unspecified; I15 - Secondary hypertension (4) CHF (congestive heart failure) Assessment/Plan: NO S/S OF FAILURE MONITOR OF DIURETICS Code(s): I50.9 - HEART FAILURE, UNSPECIFIED (5) Hyponatremia Assessment/Plan: DC DIURETICS NS MONITOR ADD NACL TABS RENAL CONSULT Code(s): E87.1 - HYPO-OSMOLALITY AND HYPONATREMIA
[2017-02-23] MEDS: SODIUM CHLORIDE 1,000 ML IV SCH (11:42)
[2017-02-23 12:59] LABS: CALCIUM 9.3 mg/dL (8.5-10.1); COCKROFT - GAULT 31.892; CREATININE 1.5 mg/dL (0.55-1.02)
[2017-02-23 13:08] VITALS: BMI 25.5
--- NOTE | 2017-02-23 13:08 | CON.NEP ---
Consult Consult Specialty:: Nephrology Referred by:: Dr Lamas Reason for Consultation:: hyponatremia - History of Present Illness Chief Complaint: none History of Present Illness: 76 year old female, with significant past medical history of DVT of both lower extremities, HTN, Afib, colon cancer s/p colon resection. She was admitted for a dvt but was later discovered not to have a dvt. Has remained in the hospital for a foot infection. 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 Denies nausea or vomiting. Appetite is ok. Does not drink a lot of fluid. Has been on hctz in past. Does not know what she marek now. 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 - History Source History Provided By: Patient, Medical Record Limitations to Obtaining History: No Limitations - Past Medical History [employer]: Yes: Other (spinal abscess) Cardio/Vascular: Yes: AFIB, HTN, Hyperlipdemia Gastrointestinal: Yes: Cancer (colon), Diverticulosis, Gastritis (h pylori) Hepatobiliary: Yes: Hepatitis B Renal/: Yes: Renal Calculi Infectious Disease: Yes: Tuberculosis (treated??) Endocrine: Yes: Hyperparathyroidism - Past Surgical History Past Surgical History: Yes: Colectomy - Alcohol/Substance Use Hx Alcohol Use: Yes (WINE) - Smoking History Smoking history: Never smoked Have you smoked in the past 12 months: No Aproximately how many cigarettes per day: 0 Home Medications - Allergies Allergies/Adverse Reactions: Allergies Allergy/AdvReac Type Severity Reaction Status Date / Time iodine Allergy Severe "TURNED Verified 11/12/16 19:01 RED LIKE A LOBSTER" phenobarbital Allergy Mild Itching Verified 11/12/16 19:01 Iodinated Contrast Media - Allergy Verified 11/12/16 19:01 Oral and [Iodinated Contrast Media - IV Dye] Sulfa (Sulfonamide Allergy Rash Verified 11/12/16 19:01 Antibiotics) prednisone AdvReac hallucinati Verified 11/12/16 19:01 ons - Home Medications Home Medications: Ambulatory Orders Allopurinol [Zyloprim -] 100 mg PO DAILY 08/15/13 Cholecalciferol (Vitamin D3) [Vitamin D] 1,000 unit PO DAILY 08/15/13 Folic Acid - 400 mcg PO DAILY 11/29/14 Mirtazapine [Remeron -] 15 mg PO DAILY 07/10/15 Alprazolam [Xanax] 0.5 mg PO BID PRN 07/25/15 Warfarin Na [Coumadin -] 2 mg PO ASDIR 10/15/15 Hydralazine HCl 50 mg PO TID 02/17/17 Hydrochlorothiazide [Hctz -] 25 mg PO DAILY 02/17/17 Isosorbide Mononitrate [Imdur -] 30 mg PO DAILY 02/17/17 Losartan Potassium 50 mg PO BID 02/17/17 Metoprolol Tartrate [Lopressor -] 12.5 mg PO DAILY 02/17/17 Pramipexole Di-HCl [Pramipexole ER] 0.375 mg PO BID 02/17/17 Rosuvastatin Calcium [Crestor] 5 mg PO DAILY 02/17/17 Tramadol HCl 50 mg PO BID PRN 02/17/17 Warfarin Sodium [Coumadin] 4 mg PO ASDIR 02/17/17 Review of Systems - Review of Systems Constitutional: reports: No Symptoms Eyes: reports: No Symptoms HENT: reports: No Symptoms Neck: reports: No Symptoms Cardiovascular: reports: No Symptoms Respiratory: reports: No Symptoms Gastrointestinal: reports: No Symptoms Genitourinary: reports: No Symptoms Breasts: reports: No Symptoms Reported Musculoskeletal: reports: Joint Pain Integumentary: reports: No Symptoms Neurological: reports: No Symptoms Endocrine: reports: No Symptoms Hematology/Lymphatic: reports: No Symptoms Nephrology Consult - Height Height: 5 ft 2 in - Weight Weight: 139 lb 9.6 oz - BMI Body Mass Index (BMI): 25.5 - Lab Results CBC,BMP: CBC, BMP 02/23/17 07:10 Anion Gap: Anion Gap Anion Gap 14 (8-16) 02/23/17 07:10 - Imaging Chest X-ray: Report Reviewed - Physical Examination Vital Signs: Vital Signs Temperature 97.4 F L 02/23/17 06:00 Pulse Rate 53 L 02/23/17 06:00 Respiratory Rate 18 02/23/17 06:00 Blood Pressure 141/62 02/23/17 06:00 O2 Sat by Pulse Oximetry (%) 97 02/22/17 22:00 Constitutional: Yes: Well Nourished, No Distress, Calm Eyes: Yes: Conjunctiva Clear, EOM Intact HENT: Yes: Atraumatic, Normocephalic Neck: Yes: Supple, Trachea Midline Cardiovascular: Yes: Pulse Irregular Respiratory: Yes: Regular, CTA Bilaterally. No: Rales Gastrointestinal: Yes: Normal Bowel Sounds Renal/: Yes: WNL Musculoskeletal: Yes: WNL Extremities: Yes: WNL Edema: Yes Edema: LLE: Trace, RLE: Trace Peripheral Pulses WNL: Yes Integumentary: Yes: WNL Neurological: Yes: Alert, Oriented Psychiatric: Yes: Alert, Oriented Assessment/Plan IMPRESSION 1. hyponatremia in large part due to hctz in addition to hypotonic fluids. HCTZ was stopped yesterday 2. osteomyelitis being followed by ID, on antibiotics 3. HTN 4. Atrial fibrillation on lovenox, coumadin on hold 5. h/o colon cancer 6. h/o dvt bilaterally PLAN keep holding hctz fluid restrict, I have informed the patient repeat bmp in 2 hours obtain cortisol level urine sodium serum osm already ordered MV
[2017-02-23] MEDS: VANCOMYCIN 1 GRAM (PRE-DOCKED) 250 ML IVPB SCH (13:41)
[2017-02-23] MEDS: SODIUM CHLORIDE 1 GM TABLET PO SCH ×2 (13:41→21:27)
--- NOTE | 2017-02-23 14:55 | PN ---
Progress Note, Physician Chief Complaint: asked to re-joseph;marlynate for suitablilty of hypotonic fluids and CHF. No cp or sob. History of Present Illness: She is a 76 year old woman history of DVT of both lower extremities in the past , HTN, paroxysmal Afib diagnosed 7 years ago in the setting of MRSA, colon cancer s/p colon resection, who was sent in by Dr. Lamas for right foot swelling for several weeks with worsening erythema and lymphangitic spread found initially with a right popliteal DVT during an office visit, no DVT found at the hospital. No chest pain, sob, orthopnea or PND. 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 MRI with osteomyelitis and cellulitis. Getting ABx and HBO. Nuclear stress test 10/16/15 moderate sized posterior wall reversible defect. Normal EF 72%. She has now been seen by renal for hyponatremia, likely due to HCTZ. - Current Medication List Current Medications: Active Medications Allopurinol (Zyloprim -) 100 mg PO DAILY [facility] Last Admin: 02/23/17 10:55 Dose: 100 mg Alprazolam (Xanax -) 0.5 mg PO BID PRN Last Admin: 02/22/17 23:28 Dose: 0.5 mg Cholecalciferol (Vitamin D3 -) 1,000 unit PO DAILY [facility] Last Admin: 02/23/17 10:56 Dose: 1,000 unit Enoxaparin Sodium (Lovenox -) 60 mg SQ BID [facility] Last Admin: 02/23/17 10:55 Dose: 60 mg Folic Acid (Folic Acid -) 0.5 mg PO DAILY [facility] Last Admin: 02/23/17 10:56 Dose: 0.5 mg Hydralazine HCl (Apresoline -) 50 mg PO TID [facility] Last Admin: 02/23/17 13:23 Dose: Not Given Vancomycin HCl (Vancomycin (Pre-Docked)) 250 mls @ 150 mls/hr IVPB DAILY@1400 [facility] PRN Reason: Protocol Last Admin: 02/23/17 13:41 Dose: 150 mls/hr Isosorbide Mononitrate (Imdur -) 30 mg PO DAILY [facility] Last Admin: 02/23/17 10:56 Dose: 30 mg Lactobacillus Acidophilus (Bacid -) 1 tab PO DAILY [facility] Last Admin: 02/23/17 10:57 Dose: 1 tab Levofloxacin (Levaquin -) 250 mg PO DAILY@0600 [facility] Last Admin: 02/23/17 05:21 Dose: 250 mg Losartan Potassium (Cozaar -) 50 mg PO BID [facility] Last Admin: 02/23/17 10:56 Dose: 50 mg Metoprolol Tartrate (Lopressor -) 12.5 mg PO DAILY [facility] Last Admin: 02/23/17 10:56 Dose: 12.5 mg Mirtazapine (Remeron -) 15 mg PO [facility] Last Admin: 02/22/17 22:29 Dose: 15 mg Pramipexole Dihydrochloride (Mirapex -) 0.375 mg PO BID [facility] Last Admin: 02/23/17 10:57 Dose: 0.375 mg Rosuvastatin Calcium (Crestor -) 5 mg PO [facility] Last Admin: 02/22/17 22:29 Dose: 5 mg Sodium Chloride (Sodium Chloride Tablet -) 1 gm PO BID [facility] Last Admin: 02/23/17 13:41 Dose: 1 gm Tramadol HCl (Ultram -) 50 mg PO Q8H PRN PRN Reason: PAIN Last Admin: 02/23/17 05:22 Dose: 50 mg Warfarin Sodium (Coumadin -) 5 mg PO DAILY@1800 [facility] Last Admin: 02/22/17 17:56 Dose: 5 mg - Objective Vital Signs: Vital Signs Temperature 97.4 F L 02/23/17 06:00 Pulse Rate 60 02/23/17 13:15 Respiratory Rate 18 02/23/17 13:15 Blood Pressure 91/52 02/23/17 13:15 O2 Sat by Pulse Oximetry (%) 97 02/23/17 09:00 Constitutional: Yes: No Distress, Calm HENT: Yes: Atraumatic, Normocephalic Neck: Yes: Supple, Trachea Midline Cardiovascular: Yes: Regular Rate and Rhythm Respiratory: Yes: Regular, CTA Bilaterally Gastrointestinal: Yes: Normal Bowel Sounds, Soft Extremities: Yes: Erythema Edema: No Labs: CBC, BMP 02/23/17 07:10 02/23/17 11:55 INR, PTT INR 1.19 (0.82-1.09) H 02/23/17 07:10 Problem List - Problems (1) Afib Assessment/Plan: No need for further cardiac testing. When stable she is now interested in NOAC, would start Eliquis 5 mg bid when stable post PICC line. Given her long course of antibiotics, would use NOAC instead of coumadin, and her renal function is too poor for Pradaxa. She has no evidence of CHF and does not need HCTZ. stable for fluids. No history of CHF, EF normal on gated imaging from recent stress test. Will see as needed. Code(s): I48.91 - UNSPECIFIED ATRIAL FIBRILLATION Qualifiers: Atrial fibrillation type: paroxysmal Qualified Code(s): I48.0 - Paroxysmal atrial fibrillation (2) Preop cardiovascular exam Assessment/Plan: There are no cardiac contraindications to osteomyelitis surgery should the need arise. She is at low to intermediate risk. No further preop testing is needed. She is medically optimized. Code(s): Z01.810 - ENCOUNTER FOR PREPROCEDURAL CARDIOVASCULAR EXAMINATION
--- NOTE | 2017-02-23 18:03 | PN ---
Progress Note (short form) - Note Progress Note: Patiet seen ad examiend Feels well. no complaints AFVSS Cor: RSR, No murmurs, No gallops Lungs: Clear to P&A Abd: Soft, Normal bowel sounds, No organomegaly Ext:No significant edema Skin: No rashes, Integument intact Abnormal Lab Results 02/23/17 02/23/17 02/23/17 07:10 07:10 07:10 RBC 2.76 L Hgb 8.7 L Hct 24.9 L INR 1.19 H Sodium 121 L* Chloride 83 L BUN 31 H D Creatinine 1.6 H Random Glucose Serum Osmolality Total Protein 5.7 L Albumin 3.0 L Urine Osmolality 02/23/17 02/23/17 02/23/17 11:55 12:25 17:10 RBC Hgb Hct INR Sodium 120 L* 120 L* Chloride 82 L 83 L BUN 28 H 29 H Creatinine 1.5 H 1.5 H Random Glucose 113 H Serum Osmolality 253 L Total Protein Albumin Urine Osmolality 188 L Home Medication List Medication Instructions Recorded Confirmed Type Allopurinol [Zyloprim -] 100 mg PO DAILY 08/15/13 02/17/17 History Cholecalciferol (Vitamin D3) 1,000 unit PO DAILY 08/15/13 02/17/17 History [Vitamin D] Folic Acid - 400 mcg PO DAILY 11/29/14 02/17/17 History Mirtazapine [Remeron -] 15 mg PO DAILY 07/10/15 02/17/17 History Alprazolam [Xanax] 0.5 mg PO BID PRN 07/25/15 02/17/17 History Warfarin Na [Coumadin -] 2 mg PO ASDIR 10/15/15 02/17/17 History Hydralazine HCl 50 mg PO TID 02/17/17 02/17/17 History Hydrochlorothiazide [Hctz -] 25 mg PO DAILY 02/17/17 02/17/17 History Isosorbide Mononitrate [Imdur -] 30 mg PO DAILY 02/17/17 02/17/17 History Losartan Potassium 50 mg PO BID 02/17/17 02/17/17 History Metoprolol Tartrate [Lopressor -] 12.5 mg PO DAILY 02/17/17 02/17/17 History Pramipexole Di-HCl [Pramipexole ER] 0.375 mg PO BID 02/17/17 02/17/17 History Rosuvastatin Calcium [Crestor] 5 mg PO DAILY 02/17/17 02/17/17 History Tramadol HCl 50 mg PO BID PRN 02/17/17 02/17/17 History Warfarin Sodium [Coumadin] 4 mg PO ASDIR 02/17/17 02/17/17 History Active Medications Generic Name Dose Route Start Last Admin Trade Name Freq PRN Reason Stop Dose Admin Allopurinol 100 mg 02/18/17 10:00 02/23/17 10:55 Zyloprim - PO 100 mg DAILY [facility] Administration Alprazolam 0.5 mg 02/21/17 15:31 02/22/17 23:28 Xanax - PO 0.5 mg BID PRN Administration Cholecalciferol 1,000 unit 02/18/17 10:00 02/23/17 10:56 Vitamin D3 - PO 1,000 unit DAILY [facility] Administration Enoxaparin Sodium 60 mg 02/17/17 22:00 02/23/17 21:26 Lovenox - SQ 60 mg BID [facility] Administration Folic Acid 0.5 mg 02/18/17 10:00 02/23/17 10:56 Folic Acid - PO 0.5 mg DAILY [facility] Administration Hydralazine HCl 50 mg 02/17/17 22:00 02/24/17 06:41 Apresoline - PO Not Given TID [facility] Vancomycin HCl 250 mls @ 150 mls/hr 02/21/17 14:00 02/23/17 13:41 Vancomycin (Pre-Docked) IVPB 150 mls/hr DAILY@1400 [facility] Administration Protocol Isosorbide Mononitrate 30 mg 02/18/17 10:00 02/23/17 10:56 Imdur - PO 30 mg DAILY [facility] Administration Lactobacillus Acidophilus 1 tab 02/20/17 13:30 02/23/17 10:57 Bacid - PO 1 tab DAILY [facility] Administration Levofloxacin 250 mg 02/21/17 06:00 02/24/17 06:41 Levaquin - PO 250 mg DAILY@0600 [facility] Administration Losartan Potassium 50 mg 02/17/17 22:00 02/23/17 21:25 Cozaar - PO 50 mg BID [facility] Administration Metoprolol Tartrate 12.5 mg 02/18/17 10:00 02/23/17 10:56 Lopressor - PO 12.5 mg DAILY [facility] Administration Mirtazapine 15 mg 02/20/17 11:55 02/23/17 21:27 Remeron - PO 15 mg HS [facility] Administration Pramipexole Dihydrochloride 0.375 mg 02/17/17 22:00 02/23/17 21:26 Mirapex - PO 0.375 mg BID [facility] Administration Rosuvastatin Calcium 5 mg 02/20/17 22:00 02/23/17 21:25 Crestor - PO 5 mg HS [facility] Administration Sodium Chloride 1 gm 02/23/17 11:30 02/23/17 21:27 Sodium Chloride Tablet - PO 1 gm BID [facility] Administration Tramadol HCl 50 mg 02/22/17 15:43 02/23/17 05:22 Ultram - PO 50 mg Q8H PRN Administration PAIN Warfarin Sodium 5 mg 02/21/17 18:00 02/22/17 17:56 Coumadin - PO 5 mg DAILY@1800 [facility] Administration A/P 76 y/o female with HTN, hyperlipidemia, afib, CAD, CKD, also with rt. 2nd toe cellulitis/MRI pending Anemia-- nl wbc/platelets suspect anemia of chronic disease due to ongoing infection remote h/o colon ca in 1994 s/p surgery and adjuvant chemotherapy h/o 2 episodes of DVT in the past --one was provoked after surgery and another unprovoked On senior care a/c Also with afib Ongoing anemia of chronic disease due to osteomyelitis check stoloccult to r/o blood loss On lovenox Plan per cardiology to switch to NOAC. HEr dosing of eliquis at this time for prevention of recurrent DVT would be 2.5 mg bid. But dose for afib per cardiology Would need to monitor for occult blood losses
[2017-02-23 18:30] LABS: COCKROFT - GAULT 31.892; CREATININE 1.5 mg/dL (0.55-1.02)
[2017-02-23] MEDS: ROSUVASTATIN CA 5 MG TABLET (FP) PO SCH (21:25)
[2017-02-23] MEDS: MIRTAZAPINE 15 MG TABLET (FP) PO SCH (21:27)
[2017-02-24] MEDS: hydrALAZINE HCL 50 MG TABLET (FP) PO SCH ×3 (06:41→22:16)
[2017-02-24] MEDS: LEVOFLOXACIN 250 MG TABLET (FP) PO SCH (06:41)
[2017-02-24 08:44] LABS: CALCIUM 9.2 mg/dL (8.5-10.1); COCKROFT - GAULT 29.8945; CREATININE 1.6 mg/dL (0.55-1.02)
--- NOTE | 2017-02-24 08:45 | PN ---
Progress Note, Physician History of Present Illness: FOOT PAIN LESS NO CP OR SOB - Current Medication List Current Medications: Active Medications Allopurinol (Zyloprim -) 100 mg PO DAILY [facility] Last Admin: 02/23/17 10:55 Dose: 100 mg Alprazolam (Xanax -) 0.5 mg PO BID PRN Last Admin: 02/22/17 23:28 Dose: 0.5 mg Cholecalciferol (Vitamin D3 -) 1,000 unit PO DAILY [facility] Last Admin: 02/23/17 10:56 Dose: 1,000 unit Enoxaparin Sodium (Lovenox -) 60 mg SQ BID [facility] Last Admin: 02/23/17 21:26 Dose: 60 mg Folic Acid (Folic Acid -) 0.5 mg PO DAILY [facility] Last Admin: 02/23/17 10:56 Dose: 0.5 mg Hydralazine HCl (Apresoline -) 50 mg PO TID [facility] Last Admin: 02/24/17 06:41 Dose: Not Given Vancomycin HCl (Vancomycin (Pre-Docked)) 250 mls @ 150 mls/hr IVPB DAILY@1400 [facility] PRN Reason: Protocol Last Admin: 02/23/17 13:41 Dose: 150 mls/hr Isosorbide Mononitrate (Imdur -) 30 mg PO DAILY [facility] Last Admin: 02/23/17 10:56 Dose: 30 mg Lactobacillus Acidophilus (Bacid -) 1 tab PO DAILY [facility] Last Admin: 02/23/17 10:57 Dose: 1 tab Levofloxacin (Levaquin -) 250 mg PO DAILY@0600 [facility] Last Admin: 02/24/17 06:41 Dose: 250 mg Losartan Potassium (Cozaar -) 50 mg PO BID [facility] Last Admin: 02/23/17 21:25 Dose: 50 mg Metoprolol Tartrate (Lopressor -) 12.5 mg PO DAILY [facility] Last Admin: 02/23/17 10:56 Dose: 12.5 mg Mirtazapine (Remeron -) 15 mg PO [facility] Last Admin: 02/23/17 21:27 Dose: 15 mg Pramipexole Dihydrochloride (Mirapex -) 0.375 mg PO BID [facility] Last Admin: 02/23/17 21:26 Dose: 0.375 mg Rosuvastatin Calcium (Crestor -) 5 mg PO [facility] Last Admin: 02/23/17 21:25 Dose: 5 mg Sodium Chloride (Sodium Chloride Tablet -) 1 gm PO BID [facility] Last Admin: 02/23/17 21:27 Dose: 1 gm Tramadol HCl (Ultram -) 50 mg PO Q8H PRN PRN Reason: PAIN Last Admin: 02/23/17 05:22 Dose: 50 mg Warfarin Sodium (Coumadin -) 5 mg PO DAILY@1800 [facility] Last Admin: 02/22/17 17:56 Dose: 5 mg - Objective Vital Signs: Vital Signs Temperature 98 F 02/24/17 05:55 Pulse Rate 53 L 02/24/17 05:55 Respiratory Rate 18 02/24/17 05:55 Blood Pressure 94/83 02/24/17 05:55 O2 Sat by Pulse Oximetry (%) 100 02/23/17 21:00 Cardiovascular: Yes: Regular Rate and Rhythm Respiratory: Yes: Regular, CTA Bilaterally Gastrointestinal: Yes: Normal Bowel Sounds, Soft Labs: CBC, BMP 02/23/17 07:10 INR, PTT INR 1.19 (0.82-1.09) H 02/23/17 07:10 Problem List - Problems (1) Osteomyelitis of foot, right, acute Assessment/Plan: IV ABX PICC LINE FOR JAIL ABX Code(s): M86.171 - OTHER ACUTE OSTEOMYELITIS, RIGHT ANKLE AND FOOT (2) Afib Assessment/Plan: CARDIO CONSULT NOTED--ELIQUIS AFTER PICC LOVENOX Code(s): I48.91 - UNSPECIFIED ATRIAL FIBRILLATION Qualifiers: Atrial fibrillation type: paroxysmal Qualified Code(s): I48.0 - Paroxysmal atrial fibrillation (3) HTN (hypertension) Assessment/Plan: SAME MEDS Code(s): I10 - ESSENTIAL (PRIMARY) HYPERTENSION Qualifiers: Hypertension type: unspecified secondary hypertension Qualified Code(s) : I15.9 - Secondary hypertension, unspecified; I15 - Secondary hypertension (4) CHF (congestive heart failure) Assessment/Plan: NO S/S OF FAILURE MONITOR OF DIURETICS Code(s): I50.9 - HEART FAILURE, UNSPECIFIED (5) Hyponatremia Assessment/Plan: DC DIURETICS NS MONITOR ADD NACL TABS RENAL CONSULT Code(s): E87.1 - HYPO-OSMOLALITY AND HYPONATREMIA Assessment/Plan AWAITING SNF PLACEMENT
[2017-02-24] MEDS: FOLIC ACID 1 MG TABLET (FP) PO SCH (11:27)
[2017-02-24] MEDS: LACTOBACILLUS ACIDOPHILUS 1 EACH TAB (FP) PO SCH (11:27)
[2017-02-24] MEDS: LOSARTAN POTASSIUM 50 MG TABLET (FP) PO SCH ×2 (11:28→22:17)
[2017-02-24] MEDS: ALLOPURINOL 100 MG TABLET (FP) PO SCH (11:28)
[2017-02-24] MEDS: METOPROLOL TARTRATE 25 MG TABLET (FP) PO SCH (11:28)
[2017-02-24] MEDS: CHOLECALCIFEROL (VITAMIN D3) 1,000 UNIT TABLET (FP) PO SCH (11:28)
[2017-02-24] MEDS: ISOSORBIDE MONONITRATE 30 MG TAB.SR.24H (FP) PO SCH (11:28)
[2017-02-24] MEDS: ENOXAPARIN NA (PORCINE) 60 MG/0.6 ML DISP.SYRIN SQ SCH ×2 (11:28→22:17)
[2017-02-24] MEDS: SODIUM CHLORIDE 1 GM TABLET PO SCH ×2 (11:29→22:18)
[2017-02-24] MEDS: PRAMIPEXOLE DIHYDROCHLORIDE 0.125 MG TABLET PO SCH ×2 (11:30→22:18)
[2017-02-24] MEDS: VANCOMYCIN 1 GRAM (PRE-DOCKED) 250 ML IVPB SCH (14:44)
--- NOTE | 2017-02-24 15:17 | PN ---
Progress Note (short form) - Note Progress Note: Renal Follow up for Hyponatremia/CKD Pt seen and examined at the bedside pt is followed as outpatient for her CKD in our office denies any acute complaints no N/V, confusion, lethargy, weakness Vital Signs Temperature 97.9 F 02/24/17 10:00 Pulse Rate 60 02/24/17 10:00 Respiratory Rate 18 02/24/17 10:00 Blood Pressure 114/58 02/24/17 10:00 O2 Sat by Pulse Oximetry (%) 100 02/23/17 21:00 Intake & Output 02/21/17 02/22/17 02/23/17 02/24/17 23:59 23:59 23:59 23:59 Intake Total 1460 1828 1170 60 Balance 1460 1828 1170 60 Weight 139 lb 9.6 oz Gen: NAD, awake and alert CVS: RRR No M/R Lungs: CTA Abd: soft NT/ND Ext: No edema, foot in dressing CBC, BMP 02/23/17 07:10 02/24/17 07:00 Current Medications Allopurinol (Zyloprim -) 100 mg PO DAILY [facility] Last Admin: 02/24/17 11:28 Dose: 100 mg Alprazolam (Xanax -) 0.5 mg PO BID PRN Last Admin: 02/22/17 23:28 Dose: 0.5 mg Cholecalciferol (Vitamin D3 -) 1,000 unit PO DAILY [facility] Last Admin: 02/24/17 11:28 Dose: 1,000 unit Enoxaparin Sodium (Lovenox -) 60 mg SQ BID [facility] Last Admin: 02/24/17 11:28 Dose: 60 mg Folic Acid (Folic Acid -) 0.5 mg PO DAILY [facility] Last Admin: 02/24/17 11:27 Dose: 0.5 mg Hydralazine HCl (Apresoline -) 50 mg PO TID [facility] Last Admin: 02/24/17 14:44 Dose: 50 mg Vancomycin HCl (Vancomycin (Pre-Docked)) 250 mls @ 150 mls/hr IVPB DAILY@1400 [facility] PRN Reason: Protocol Last Admin: 02/24/17 14:44 Dose: 150 mls/hr Isosorbide Mononitrate (Imdur -) 30 mg PO DAILY [facility] Last Admin: 02/24/17 11:28 Dose: 30 mg Lactobacillus Acidophilus (Bacid -) 1 tab PO DAILY [facility] Last Admin: 02/24/17 11:27 Dose: 1 tab Levofloxacin (Levaquin -) 250 mg PO DAILY@0600 [facility] Last Admin: 02/24/17 06:41 Dose: 250 mg Losartan Potassium (Cozaar -) 50 mg PO BID [facility] Last Admin: 02/24/17 11:28 Dose: 50 mg Metoprolol Tartrate (Lopressor -) 12.5 mg PO DAILY [facility] Last Admin: 02/24/17 11:28 Dose: 12.5 mg Mirtazapine (Remeron -) 15 mg PO HS [facility] Last Admin: 02/23/17 21:27 Dose: 15 mg Pramipexole Dihydrochloride (Mirapex -) 0.375 mg PO BID [facility] Last Admin: 02/24/17 11:30 Dose: 0.375 mg Rosuvastatin Calcium (Crestor -) 5 mg PO HS [facility] Last Admin: 02/23/17 21:25 Dose: 5 mg Sodium Chloride (Sodium Chloride Tablet -) 1 gm PO BID [facility] Last Admin: 02/24/17 11:29 Dose: 1 gm Tramadol HCl (Ultram -) 50 mg PO Q8H PRN PRN Reason: PAIN Last Admin: 02/23/17 05:22 Dose: 50 mg Warfarin Sodium (Coumadin -) 5 mg PO DAILY@1800 [facility] Last Admin: 02/22/17 17:56 Dose: 5 mg 76 year old woman with PMhx of CKD stage 3(baseline Cr 1.2-1.4), Hypertension, CAD, DVT who presnted with LE swelling and tenderness and to have Osteomylitis complicated by worsesning hyponatremia and JULIO. #Hypo-osmolar hypovolemic hyponatremia in setting of HCTZ serum na improving off HCTZ Urine studies show high Na likley due to diuretic use given high BUN/Cr ration and concurrent development of JULIO etiology of hyponatremia is hypovolemic Continue salt tabs and Normal saline at a low rate Trend Na Q12h Continue free water restriction Thank you Jonah Salazar DO
[2017-02-24] MEDS ORDERED: ALPRAZolam 0.25 MG TABLET PO PRN (16:16)
[2017-02-24] MEDS: SODIUM CHLORIDE 1,000 ML IV SCH (16:59)
[2017-02-24] MEDS ORDERED: PT OWN MED DRAWER 7, Y5N ONE (20:06)
[2017-02-24] MEDS: ROSUVASTATIN CA 5 MG TABLET (FP) PO SCH (22:17)
[2017-02-24] MEDS: MIRTAZAPINE 15 MG TABLET (FP) PO SCH (22:18)
[2017-02-25 00:07] LABS: A/G RATIO 1.3 (0.7-1.7); ALBUMIN 3.4 g/dL (2.9-4.4); GLOBULIN, TOTAL 2.7 g/dL (2.2-3.9); M-SPIKE Not Observed g/dL (Not Observed); TOTAL PROTEIN 6.1 g/dL (6.0-8.5)
[2017-02-25] MEDS: traMADol HCL 50 MG TABLET PO PRN (04:12)
[2017-02-25] MEDS: hydrALAZINE HCL 50 MG TABLET (FP) PO SCH ×2 (06:01→14:43)
[2017-02-25] MEDS: LEVOFLOXACIN 250 MG TABLET (FP) PO SCH (06:02)
[2017-02-25 08:29] LABS: CALCIUM 8.9 mg/dL (8.5-10.1); COCKROFT - GAULT 31.892; CREATININE 1.5 mg/dL (0.55-1.02); MAGNESIUM 1.5 mg/dL (1.8-2.4); PHOSPHOROUS 2.6 mg/dL (2.5-4.9)
[2017-02-25] MEDS: SODIUM CHLORIDE 1,000 ML IV SCH (08:39)
[2017-02-25] MEDS ORDERED: PT OWN MED DRAWER 7, Y5N ONE (09:32)
[2017-02-25] MEDS: LOSARTAN POTASSIUM 50 MG TABLET (FP) PO SCH (09:39)
[2017-02-25] MEDS: LACTOBACILLUS ACIDOPHILUS 1 EACH TAB (FP) PO SCH (09:39)
[2017-02-25] MEDS: METOPROLOL TARTRATE 25 MG TABLET (FP) PO SCH (09:39)
[2017-02-25] MEDS: ENOXAPARIN NA (PORCINE) 60 MG/0.6 ML DISP.SYRIN SQ SCH (09:40)
[2017-02-25] MEDS: FOLIC ACID 1 MG TABLET (FP) PO SCH (09:40)
[2017-02-25] MEDS: ISOSORBIDE MONONITRATE 30 MG TAB.SR.24H (FP) PO SCH (09:41)
[2017-02-25] MEDS: CHOLECALCIFEROL (VITAMIN D3) 1,000 UNIT TABLET (FP) PO SCH (09:41)
[2017-02-25] MEDS: SODIUM CHLORIDE 1 GM TABLET PO SCH (09:41)
[2017-02-25] MEDS: ALLOPURINOL 100 MG TABLET (FP) PO SCH (09:41)
[2017-02-25] MEDS: PRAMIPEXOLE DIHYDROCHLORIDE 0.125 MG TABLET PO SCH (09:42)
--- NOTE | 2017-02-25 10:47 | PN ---
Progress Note, Physician Chief Complaint: Cellulitis with osteomyelitis History of Present Illness: Cellulitis of right second toe. MRI reveals osteomyelitis. Candidate for HBO tx as per Vascular. Continue IV abx. Furosemide changed to PO. Patient has poor IV access, getting Tunnel Catheter placed today by IR. Plan D/C to [facility] - Current Medication List Current Medications: Active Medications Allopurinol (Zyloprim -) 100 mg PO DAILY [facility] Last Admin: 02/25/17 09:41 Dose: 100 mg Alprazolam (Xanax -) 0.5 mg PO BID PRN Cholecalciferol (Vitamin D3 -) 1,000 unit PO DAILY [facility] Last Admin: 02/25/17 09:41 Dose: 1,000 unit Enoxaparin Sodium (Lovenox -) 60 mg SQ BID [facility] Last Admin: 02/25/17 09:40 Dose: 60 mg Folic Acid (Folic Acid -) 0.5 mg PO DAILY [facility] Last Admin: 02/25/17 09:40 Dose: 0.5 mg Hydralazine HCl (Apresoline -) 50 mg PO TID [facility] Last Admin: 02/25/17 06:01 Dose: 50 mg Vancomycin HCl (Vancomycin (Pre-Docked)) 250 mls @ 150 mls/hr IVPB DAILY@1400 [facility] PRN Reason: Protocol Last Admin: 02/24/17 14:44 Dose: 150 mls/hr Sodium Chloride (Normal Saline -) 1,000 mls @ 60 mls/hr IV ASDIR [facility] Last Admin: 02/25/17 08:39 Dose: 60 mls/hr Isosorbide Mononitrate (Imdur -) 30 mg PO DAILY [facility] Last Admin: 02/25/17 09:41 Dose: 30 mg Lactobacillus Acidophilus (Bacid -) 1 tab PO DAILY [facility] Last Admin: 02/25/17 09:39 Dose: 1 tab Levofloxacin (Levaquin -) 250 mg PO DAILY@0600 [facility] Last Admin: 02/25/17 06:02 Dose: 250 mg Losartan Potassium (Cozaar -) 50 mg PO BID [facility] Last Admin: 02/25/17 09:39 Dose: 50 mg Metoprolol Tartrate (Lopressor -) 12.5 mg PO DAILY [facility] Last Admin: 02/25/17 09:39 Dose: 12.5 mg Mirtazapine (Remeron -) 15 mg PO HS [facility] Last Admin: 02/24/17 22:18 Dose: 15 mg Pramipexole Dihydrochloride (Mirapex -) 0.375 mg PO BID [facility] Last Admin: 02/25/17 09:42 Dose: 0.375 mg Rosuvastatin Calcium (Crestor -) 5 mg PO [facility] Last Admin: 02/24/17 22:17 Dose: 5 mg Sodium Chloride (Sodium Chloride Tablet -) 1 gm PO BID [facility] Last Admin: 02/25/17 09:41 Dose: 1 gm Tramadol HCl (Ultram -) 50 mg PO Q8H PRN PRN Reason: PAIN Last Admin: 02/25/17 04:12 Dose: 50 mg Warfarin Sodium (Coumadin -) 5 mg PO DAILY@1800 [facility] Last Admin: 02/22/17 17:56 Dose: 5 mg - Objective Vital Signs: Vital Signs Temperature 97.4 F L 02/25/17 09:00 Pulse Rate 64 02/25/17 09:00 Respiratory Rate 20 02/25/17 09:00 Blood Pressure 124/58 02/25/17 09:00 O2 Sat by Pulse Oximetry (%) 97 02/24/17 21:00 Constitutional: Yes: Well Nourished, No Distress, Calm Cardiovascular: Yes: Pulse Irregular, S1, S2 Respiratory: Yes: Regular Gastrointestinal: Yes: Normal Bowel Sounds Musculoskeletal: Yes: WNL Extremities: Yes: WNL Edema: No Peripheral Pulses WNL: Yes Wound/Incision: Yes: Clean/Dry Labs: CBC, BMP 02/23/17 07:10 02/25/17 07:00 INR, PTT INR 1.19 (0.82-1.09) H 02/23/17 07:10 Problem List - Problems (1) Cellulitis Assessment/Plan: On IV abx, responding well. Will continue Vancomycin 1 gm IVPB and Levofloxacin 250 mg IVPB daily for 6 weeks via tunnel cath. Code(s): L03.90 - CELLULITIS, UNSPECIFIED Qualifiers: Site of cellulitis of extremity: lower extremity Laterality: right (2) Osteomyelitis of foot, right, acute Code(s): M86.171 - OTHER ACUTE OSTEOMYELITIS, RIGHT ANKLE AND FOOT (3) Afib Assessment/Plan: D/C on Eliquis 5 mg po BID as per Cardiology Code(s): I48.91 - UNSPECIFIED ATRIAL FIBRILLATION Qualifiers: Atrial fibrillation type: paroxysmal Qualified Code(s): I48.0 - Paroxysmal atrial fibrillation (4) Anemia Code(s): D64.9 - ANEMIA, UNSPECIFIED Qualifiers: Anemia type: unspecified anemia type (5) Hyponatremia Assessment/Plan: On PO Sodium, improving after discontinuation of HCTZ. Code(s): E87.1 - HYPO-OSMOLALITY AND HYPONATREMIA Assessment/Plan Tunnel Catheter today, IV abx to be continued at [facility]. Started on Eliquis for afib as per cardiology.
[2017-02-25] MEDS ORDERED: MAGNESIUM SULF 50% (8.12 MEQ/2 ML-1 GM VIAL) IVPB ONE (11:15)
--- NOTE | 2017-02-25 13:37 | PN ---
Progress Note (short form) - Note Progress Note: Renal Follow up for Hyponatremia/CKD Pt seen and examined at the bedside awake and alert no acute complaints no sob or chest pain Vital Signs Temperature 97.4 F L 02/25/17 09:00 Pulse Rate 64 02/25/17 09:00 Respiratory Rate 20 02/25/17 09:00 Blood Pressure 124/58 02/25/17 09:00 O2 Sat by Pulse Oximetry (%) 97 02/25/17 09:00 Intake & Output 02/22/17 02/23/17 02/24/17 02/25/17 23:59 23:59 23:59 23:59 Intake Total 1828 1170 830 940 Balance 1828 1170 830 940 Weight 139 lb 9.6 oz Gen: NAD, awake and alert CVS: RRR No M/R Lungs: CTA Abd: soft NT/ND Ext: No edema, foot in dressing CBC, BMP 02/23/17 07:10 02/25/17 07:00 Laboratory Tests 02/25/17 07:00 Calcium 8.9 Phosphorus 2.6 Magnesium 1.5 L Current Medications Allopurinol (Zyloprim -) 100 mg PO DAILY [facility] Last Admin: 02/25/17 09:41 Dose: 100 mg Alprazolam (Xanax -) 0.5 mg PO BID PRN Cholecalciferol (Vitamin D3 -) 1,000 unit PO DAILY [facility] Last Admin: 02/25/17 09:41 Dose: 1,000 unit Enoxaparin Sodium (Lovenox -) 60 mg SQ BID [facility] Last Admin: 02/25/17 09:40 Dose: 60 mg Folic Acid (Folic Acid -) 0.5 mg PO DAILY [facility] Last Admin: 02/25/17 09:40 Dose: 0.5 mg Hydralazine HCl (Apresoline -) 50 mg PO TID [facility] Last Admin: 02/25/17 06:01 Dose: 50 mg Vancomycin HCl (Vancomycin (Pre-Docked)) 250 mls @ 150 mls/hr IVPB DAILY@1400 [facility] PRN Reason: Protocol Last Admin: 02/24/17 14:44 Dose: 150 mls/hr Sodium Chloride (Normal Saline -) 1,000 mls @ 60 mls/hr IV ASDIR [facility] Last Admin: 02/25/17 08:39 Dose: 60 mls/hr Isosorbide Mononitrate (Imdur -) 30 mg PO DAILY [facility] Last Admin: 02/25/17 09:41 Dose: 30 mg Lactobacillus Acidophilus (Bacid -) 1 tab PO DAILY [facility] Last Admin: 02/25/17 09:39 Dose: 1 tab Levofloxacin (Levaquin -) 250 mg PO DAILY@0600 [facility] Last Admin: 02/25/17 06:02 Dose: 250 mg Losartan Potassium (Cozaar -) 50 mg PO BID [facility] Last Admin: 02/25/17 09:39 Dose: 50 mg Metoprolol Tartrate (Lopressor -) 12.5 mg PO DAILY [facility] Last Admin: 02/25/17 09:39 Dose: 12.5 mg Mirtazapine (Remeron -) 15 mg PO [facility] Last Admin: 02/24/17 22:18 Dose: 15 mg Pramipexole Dihydrochloride (Mirapex -) 0.375 mg PO BID [facility] Last Admin: 02/25/17 09:42 Dose: 0.375 mg Rosuvastatin Calcium (Crestor -) 5 mg PO [facility] Last Admin: 02/24/17 22:17 Dose: 5 mg Sodium Chloride (Sodium Chloride Tablet -) 1 gm PO BID [facility] Last Admin: 02/25/17 09:41 Dose: 1 gm Tramadol HCl (Ultram -) 50 mg PO Q8H PRN PRN Reason: PAIN Last Admin: 02/25/17 04:12 Dose: 50 mg Warfarin Sodium (Coumadin -) 5 mg PO DAILY@1800 [facility] Last Admin: 02/22/17 17:56 Dose: 5 mg 76 year old woman with PMhx of CKD stage 3(baseline Cr 1.2-1.4), Hypertension, CAD, DVT who presnted with LE swelling and tenderness and to have Osteomylitis complicated by worsesning hyponatremia and JULIO. #Hypo-osmolar hypovolemic hyponatremia in setting of HCTZ serum Na improving on salt tabs and normal saline continue the same for now Trend Na daily #JULIO on CKD Renal function now improved to near baseline continue isotonic saline Trend BUN/Cr daily Thank you Jonah Salazar DO
[2017-02-25] MEDS: VANCOMYCIN 1 GRAM (PRE-DOCKED) 250 ML IVPB SCH (14:40)
[2017-02-25 14:44] VITALS: BP 160/80; PULSE 78
[2017-02-25 15:02] VITALS: TEMP 97.8
--- NOTE | 2017-02-25 17:29 | DS ---
Physical Examination Vital Signs: Vital Signs Temperature 97.8 F 02/25/17 13:00 Pulse Rate 78 02/25/17 14:43 Respiratory Rate 20 02/25/17 14:43 Blood Pressure 160/80 02/25/17 14:43 O2 Sat by Pulse Oximetry (%) 97 02/25/17 09:00 Findings/Remarks: 76 year old female, with significant past medical history of DVT of both lower extremities, HTN, Afib, colon cancer s/p colon resection, who was sent in by Dr. Lamas for a right popliteal DVT found during an office visit today. She states that her right foot is swollen and painful. Pt had swelling and redness of the foot last week and placed on abx. she just finished a course of antibiotics (500mg of keflex twice a day) Constitutional: Yes: Well Nourished, No Distress, Calm Cardiovascular: Yes: Pulse Irregular Respiratory: Yes: WNL, Regular Gastrointestinal: Yes: Normal Bowel Sounds Musculoskeletal: Yes: WNL Extremities: Yes: WNL, Other (Right second toe wound with mild pain, no discharge.) Edema: No Wound/Incision: Yes: Clean/Dry Neurological: Yes: Alert, Oriented Psychiatric: Yes: Alert, Oriented Labs: CBC, BMP 02/23/17 07:10 02/25/17 07:00 Discharge Summary Reason For Visit: DVT POPLITEAL VEIN OF RIGHT LOWER EXTREMITY Current Active Problems HTN Hyperlipidemia Atrial Fib Cellulitis (Acute) Hyponatremia (Acute) Osteomyelitis of foot, right, acute (Acute) Hospital Course: 76 year old female, with significant past medical history of DVT of both lower extremities, HTN, Afib, colon cancer s/p colon resection, who was admitted to the hospital for right second toe cellulitis. Her DVT work up was negative. Her MRI right lower extremity showed osteomyelitis. During the course for her hospitalization, she was seen by ID, cardiology and vascular. She had tunnel catheter placed today and as suggested by ID will be going to [facility] on Levaquin and vancomycin IV. She is also being discharged on Eliquis for her chronic afib as suggested by cardiology. During the course of her stay, she also becam hyponatremic. Her HCTZ was dc'd and she was placed on sodium chloride tabs, after which her hyponatremia improved. Condition: Stable - Instructions Diet, Activity, Other Instructions: Regular diet Referrals: Quan Lamas MD [Primary Care Provider] - Disposition: LONGTERM FACILITY - Home Medications Comprehensive Discharge Medication List: Ambulatory Orders Allopurinol [Zyloprim -] 100 mg PO DAILY 08/15/13 Cholecalciferol (Vitamin D3) [Vitamin D] 1,000 unit PO DAILY 08/15/13 Folic Acid - 400 mcg PO DAILY 11/29/14 Mirtazapine [Remeron -] 15 mg PO DAILY 07/10/15 Hydralazine HCl 50 mg PO TID 02/17/17 Isosorbide Mononitrate [Imdur -] 30 mg PO DAILY 02/17/17 Losartan Potassium 50 mg PO BID 02/17/17 Metoprolol Tartrate [Lopressor -] 12.5 mg PO DAILY 02/17/17 Pramipexole Di-HCl [Pramipexole ER] 0.375 mg PO BID 02/17/17 Rosuvastatin Calcium [Crestor] 5 mg PO DAILY 02/17/17 Apixaban [Eliquis] 5 mg PO BID #60 tablet 02/25/17 Lactobacillus Acidophilus [Bacid -] 1 tab PO DAILY tab 02/25/17 Levofloxacin 250 mg Ivpb [Levaquin 250 mg Premixed Ivpb -] 250 mg IVPB DAILY # 42 mg 02/25/17 Sodium Chloride Tablet - 1 gm PO BID tablet 02/25/17 Vancomycin/0.9 % Sod Chloride [Vanco 1 Gram/250 ml-0.9% NaCl] 1 gm IV DAILY #42 plast..bag 02/25/17
[2017-02-26 00:06] LABS: M-SPIKE, % Not Observed % (Not Observed)
== END 2017-02-25 16:27 | DRG 540 ==
LOC: JER 17:16 → JERBED 18:38 → J5S 20:39 → OBSVTOIN 02-18 16:30
PROVIDERS: ADMIT Family Medicine; ATTEND Family Medicine
PROC: 05HM33Z Insertion of Infusion Device into Right Internal Jugular Vein, Percutaneous Approach (ICD-10-PCS; principal; 2017-02-25)
PROC: B513YZA Fluoroscopy of Right Jugular Veins using Other Contrast, Guidance (ICD-10-PCS; 2017-02-25)
DX: M86.171 Other acute osteomyelitis, right ankle and foot (principal); E87.1 Hypo-osmolality and hyponatremia; N17.9 Acute kidney failure, unspecified; I10 Essential (primary) hypertension; L03.031 Cellulitis of right toe; I12.9 Hypertensive chronic kidney disease with stage 1 through stage 4 chronic kidney disease, or unspecified chronic kidney disease; N18.3 Chronic kidney disease, stage 3 (moderate); L97.519 Non-pressure chronic ulcer of other part of right foot with unspecified severity; D64.9 Anemia, unspecified; I48.2 Chronic atrial fibrillation; E78.5 Hyperlipidemia, unspecified; I25.10 Atherosclerotic heart disease of native coronary artery without angina pectoris
CPT/HCPCS: 36415; 36558; 71010-TC; 73610-TC-RT; 73630-TC-RT; 73718-TC; 77001-TC; 80048; 80053; 82533; 82550; 82553; 82607; 82728; 82747; 82784; 83540; 83550; 83735; 83880; 83930; 83935; 84100; 84155; 84156; 84157; 84165; 84295; 84300; 84439; 84443; 84484; 85014; 85025; 85044; 85610; 85651; 86140; 87040; 87070; 87077; 87205; 93005; 93010; 93970-TC; 93971-TC; 97116-GP; 97162; 99285-25; C1751; G0378

== ENCOUNTER 2017-04-19 14:48 | Emergency (ER) | payer BC, OTHER ==
[2017-04-19 15:20] VITALS: BP 127/55; PULSE 64; TEMP 97.7; BMI 25.6
--- NOTE | 2017-04-19 15:49 | PDOC ---
History of Present Illness - General History Source: Patient, Old Records Exam Limitations: No Limitations - History of Present Illness Initial Comments: 04/19/17 15:53 <Disha Sanchez - Last Filed: 04/19/17 16:36> - General History Source: Patient Exam Limitations: No Limitations - History of Present Illness Initial Comments: 04/19/17 17:04 The patient is a 76-year-old woman, from [facility], with a significant past medical history hypertension, atrial fibrillation (was on Coumadin now on Eliquis), colon Ca and melanoma who presents to the emergency department via EMS for further evaluation of a clogged PICC Line. As per patient, she was recently diagnosed with osteomyelitis of her foot, approximately 2 months ago. She has been on antibiotics for the past two months. She was going to be discharged today however, there was difficulty removing the PICC line, thus presenting to the ED. No fever, chills, weakness, chest pain, shortness of breath, cough, leg pain, nausea, vomiting, diarrhea. Allergies: Iodine. Phenobarbital. Iodinated Contrast Media Past Surgical History: Cholecystectomy. Colon resection. Social History: No tobacco and recreational drug use. Social EtOH use (wine) <Kenn Valentin - Last Filed: 04/19/17 17:05> - General Chief Complaint: Bleeding from PICC Line Stated Complaint: TROUBLE REMOVING IV Time Seen by Provider: 04/19/17 15:27 Past History <Disha Sanchez - Last Filed: 04/19/17 16:36> - Past Medical History Anemia: No Asthma: No Cancer: Yes (COLON, MELANOMA- RESECTION ON R UE.) Cardiac Disorders: Yes (ATRIAL FIBRILLATION) CVA: No COPD: No CHF: No Dementia: No Diabetes: No GI Disorders: No Disorders: No HTN: Yes Hypercholesterolemia: No Liver Disease: No Seizures: No Thyroid Disease: No - Surgical History Abdominal Surgery: Yes (colon sx with anastomosis) Cardiac Surgery: No Cholecystectomy: Yes Lung Surgery: No Neurologic Surgery: No Orthopedic Surgery: No - Psycho/Social/Smoking Cessation Hx Anxiety: No Suicidal Ideation: No Smoking Status: Yes Smoking History: Never smoked Have you smoked in the past 12 months: No Number of Cigarettes Smoked Daily: 0 Information on smoking cessation initiated: No Hx Alcohol Use: Yes (WINE) Drug/Substance Use Hx: No Substance Use Type: None Hx Substance Use Treatment: No <BarbieErnieKenn - Last Filed: 04/19/17 17:05> - Past Medical History Allergies/Adverse Reactions: Allergies Allergy/AdvReac Type Severity Reaction Status Date / Time iodine Allergy Severe "TURNED Verified 11/12/16 19:01 RED LIKE A LOBSTER" phenobarbital Allergy Mild Itching Verified 11/12/16 19:01 Iodinated Contrast Media - Allergy Verified 11/12/16 19:01 Oral and [Iodinated Contrast Media - IV Dye] Sulfa (Sulfonamide Allergy Rash Verified 11/12/16 19:01 Antibiotics) prednisone AdvReac hallucinati Verified 11/12/16 19:01 ons Home Medications: Ambulatory Orders Allopurinol [Zyloprim -] 100 mg PO DAILY 08/15/13 Cholecalciferol (Vitamin D3) [Vitamin D] 1,000 unit PO DAILY 08/15/13 Folic Acid - 400 mcg PO DAILY 11/29/14 Mirtazapine [Remeron -] 15 mg PO DAILY 07/10/15 Hydralazine HCl 50 mg PO TID 02/17/17 Isosorbide Mononitrate [Imdur -] 30 mg PO DAILY 02/17/17 Losartan Potassium 50 mg PO BID 02/17/17 Metoprolol Tartrate [Lopressor -] 12.5 mg PO DAILY 02/17/17 Pramipexole Di-HCl [Pramipexole ER] 0.375 mg PO BID 02/17/17 Rosuvastatin Calcium [Crestor] 5 mg PO DAILY 02/17/17 Apixaban [Eliquis] 5 mg PO BID #60 tablet 02/25/17 Lactobacillus Acidophilus [Bacid -] 1 tab PO DAILY tab 02/25/17 Levofloxacin 250 mg Ivpb [Levaquin 250 mg Premixed Ivpb -] 250 mg IVPB DAILY # 42 mg 02/25/17 Sodium Chloride Tablet - 1 gm PO BID tablet 02/25/17 Vancomycin/0.9 % Sod Chloride [Vanco 1 Gram/250 ml-0.9% NaCl] 1 gm IV DAILY #42 plast..bag 02/25/17 Review of Systems - Review of Systems Able to Perform ROS?: Yes Comments:: 04/19/17 15:53 <Disha Sanchez - Last Filed: 04/19/17 16:36> - Review of Systems Able to Perform ROS?: Yes Comments:: 04/19/17 17:04 CONSTITUTIONAL: No reported: Fever, Chills, Diaphoresis, Generalized Weakness, Malaise, Loss of Appetite CARDIOVASCULAR: No reported: Chest Pain RESPIRATORY: No reported: Cough, Shortness of Breath, GASTROINTESTINAL: No reported: Abdominal pain, Abdominal Distension, SKIN: Reported: Stuck PICC Line. No reported: Rash, Itching, Pallor HEMEATOLOGIC/IMMUNOLOGIC: No reported: Easy Bleeding, Easy Bruising, Lymphadenopathy, Frequent infections <Knen Valentin - Last Filed: 04/19/17 17:05> *Physical Exam - Vital Signs Last Vital Signs Temp Pulse Resp BP Pulse Ox 97.7 F 64 20 127/55 100 04/19/17 15:12 04/19/17 15:12 04/19/17 15:12 04/19/17 15:12 04/19/17 15:12 - Physical Exam Comments: 04/19/17 15:53 <Disha Sanchez - Last Filed: 04/19/17 16:36> - Vital Signs Last Vital Signs Temp Pulse Resp BP Pulse Ox 97.7 F 64 20 127/55 100 04/19/17 15:12 04/19/17 15:12 04/19/17 15:12 04/19/17 15:12 04/19/17 15:12 - Physical Exam Comments: 04/19/17 17:05 GENERAL: The patient is awake, alert, and fully oriented, Nontoxic - in no acute distress. CHEST: PICC line in place, unable to remove. site c/d/i <Kenn Valentin - Last Filed: 04/19/17 17:05> Medical Decision Making - Medical Decision Making 04/19/17 16:[address] De Guzman. 04/19/17 16:[address] De Guzman <Disha Sanchez - Last Filed: 04/19/17 16:36> - Medical Decision Making 04/19/17 15:50 76yF hx of dvt of b/l LE, htn, afib on a/c, colon ca, recent osteo s/p 2months of abx via picc line, was to be d/c today but was rehab was unable to remove the picc line so pt was transferred to the ED for evaluation. The pt denies any complaints otherwise. no pm, ivc filter, or other intrathoracic devices on exam the pts picc line is in place, there seems to stuck. skyler ldw dr. de guzman consider fu with IR for removal under flouro 04/19/17 17:02 case dw jeramie de guzman will dc the pt with fu with dr. de guzman as outpatient and outpatient IR appt for picc line removal return precautions were discussed I discussed the physical exam findings, ancillary test results and final diagnoses with the patient. I answered all of the patient's questions. The patient was satisfied with the care received and felt comfortable with the discharge plan and treatment plan. The patient will call their primary care physician within 24 hours to arrange follow-up and will return to the Emergency Department with any new, persistent or worsening symptoms. <Kenn Valentin - Last Filed: 04/19/17 17:05> *DC/Admit/Observation/Transfer - Attestations Scribe Attestion: 04/19/17 15:53 Documentation prepared by Disha Sanchez, acting as medical records tech for Kenn Valentin MD. <Disha Sanchez - Last Filed: 04/19/17 16:36> - Discharge Dispostion Admit: No <Kenn Valentin - Last Filed: 04/19/17 17:05> Diagnosis at time of Disposition: Central line complication Qualifiers: Encounter type: initial encounter Qualified Code(s): T82.9XXA - Unspecified complication of cardiac and vascular prosthetic device, implant and graft, initial encounter - Discharge Dispostion Disposition: HOME Condition at time of disposition: Improved - Referrals Referrals: Quan De Guzman MD [Primary Care Provider] - - Patient Instructions Additional Instructions: Please call Dr. De Guzman to arrange an appointment with Interventional Radiology for removal of the PICC line. If there is an ybleeding, discomfort, pain, fever/chills, or any other concerns , return to the ED for evaluation. Print Language: TELUGU
== END 2017-04-19 17:17 | disposition home or self-care (01) ==
LOC: JER 14:48
DX: T82.898A Other specified complication of vascular prosthetic devices, implants and grafts, initial encounter (principal); M86.8X7 Other osteomyelitis, ankle and foot; I48.91 Unspecified atrial fibrillation; Z79.01 Long term (current) use of anticoagulants; I10 Essential (primary) hypertension; Z85.038 Personal history of other malignant neoplasm of large intestine; Z85.820 Personal history of malignant melanoma of skin; Y83.8 Other surgical procedures as the cause of abnormal reaction of the patient, or of later complication, without mention of misadventure at the time of the procedure; Y82.8 Other medical devices associated with adverse incidents
CPT/HCPCS: 71010-TC; 99281-25

== ENCOUNTER → 2017-04-23 | Day surgery (SDC) | payer BC | END | disposition home or self-care (01) | LOC: JRADIR 08:47 | PROVIDERS: ATTEND Family Medicine | PROC: 05PY03Z Removal of Infusion Device from Upper Vein, Open Approach (ICD-10-PCS; principal; 2017-04-23) | DX: Z45.2 Encounter for adjustment and management of vascular access device (principal) | CPT/HCPCS: 36589 ==

== ENCOUNTER 2018-07-27 06:51 | Inpatient (IN) | payer OTHER, MEDICARE ==
[2018-07-19 13:54] VITALS: BMI 25.2
[2018-07-27] MEDS ORDERED: ceFAZolin SODIUM 1 GM VIAL ONE (07:22)
[2018-07-27] MEDS ORDERED: VANCOMYCIN 1,000 MG VIAL (RESTRICTED TO ID ONLY) ONE (07:22)
--- NOTE | 2018-07-27 07:59 | HP ---
Satellite [facility] - Chief Complaint Chief Complaint: right knee pain - Past Medical History Allergies/Adverse Reactions: Allergies Allergy/AdvReac Type Severity Reaction Status Date / Time iodine Allergy Severe "TURNED Verified 11/12/16 19:01 RED LIKE A LOBSTER" phenobarbital Allergy Mild Itching Verified 11/12/16 19:01 Iodinated Contrast- Oral and Allergy Verified 11/12/16 19:01 IV Dye [Iodinated Contrast Media - IV Dye] Sulfa (Sulfonamide Allergy Rash Verified 11/12/16 19:01 Antibiotics) prednisone AdvReac hallucinati Verified 11/12/16 19:01 ons FILLER BLENDER: Yes: Other (spinal abscess) Cardiovascular: Yes: AFIB, HTN, Hyperlipdemia Gastrointestinal: Yes: Cancer (colon), Diverticulosis, Gastritis (h pylori) Hepatobiliary: Yes: Hepatitis B Renal/: Yes: Renal Calculi Heme/Onc: Yes: Anemia, Cancer (colon), Other (dvt) Infectious Disease: Yes: Tuberculosis (treated??) Endocrine: Yes: Hyperparathyroidism - Current Medications Current Medications: Home Medications Medication Instructions Recorded Allopurinol [Zyloprim -] 100 mg PO DAILY 08/15/13 Mirtazapine [Remeron -] 30 mg PO HS 07/10/15 Metoprolol Tartrate [Lopressor -] 12.5 mg PO BID 02/17/17 Pramipexole Di-HCl [Pramipexole ER] 0.75 mg PO BID 02/17/17 Rosuvastatin Calcium [Crestor] 5 mg PO HS 02/17/17 Apixaban [Eliquis] 2.5 mg PO BID 03/08/18 Furosemide [Lasix] 20 mg PO DAILY 03/08/18 Losartan Potassium 25 mg PO DAILY 07/19/18 Satellite Physical Exam - Physical Examination Vital Signs: Vital Signs Period Temp Pulse Resp BP Sys/Blackman Pulse Ox Last 24 Hr 98.1 F 58 18 146/64 General Appearance: Well Nourished, Well Developed, Alert & Oriented x3 ENT: Clear Lung: Normal air movement Heart: Regular rate & rhythm Extremities: Other (right knee- + swelling, + ttp ,decr rom, nvi xrays show grade 4 tricompartmental djd) Neurological: Intact, Alert, Oriented Satellite Impression/Plan - Impression/Plan Impression: right knee djd Operative Procedure: right lauro tkr Date to be Performed: 07/27/18
[2018-07-27] MEDS ORDERED: GABAPENTIN 300 MG CAPSULE (FP) ONE (08:04)
[2018-07-27] MEDS ORDERED: BUPIVACAINE HCL/PF 0.5% (5MG/ML) 10 ML VIAL ONE (08:39)
[2018-07-27] MEDS ORDERED: MIDAZOLAM HCL 2 MG/2 ML SINGLE DOSE VIAL ONE (08:43)
[2018-07-27] MEDS ORDERED: BUPIVACAINE HCL/PF (5 MG/ML) 30 ML VIAL IJ ONE (08:44)
[2018-07-27] MEDS ORDERED: BUPIVACAINE LIPOSOME/PF (EXPAREL) 266 MG/20 ML VIAL ONE (08:44)
[2018-07-27] MEDS ORDERED: CEFAZOLIN 1 GM/D5W 1 GRAM/50 ML BAG IVPB ONE (09:30)
[2018-07-27] MEDS ORDERED: TRANEXAMIC ACID 1000 MG/10 ML VIAL IVPUSH ONE (09:30)
[2018-07-27] MEDS ORDERED: TRANEXAMIC ACID 1000 MG/10 ML VIAL ONE (09:53)
[2018-07-27] MEDS ORDERED: ePHEDrine SULFATE 50 MG/1 ML AMPULE ONE (10:14)
[2018-07-27] MEDS ORDERED: VANCOMYCIN 1,000 MG VIAL (RESTRICTED TO ID ONLY) IVPB ONE (11:27)
[2018-07-27] MEDS ORDERED: MAGNESIUM HYDROX 2400MG/30ML ORAL SUSPENSION 30 ML CUP PO PRN (11:56)
[2018-07-27] MEDS ORDERED: ONDANSETRON 4 MG/2 ML VIAL IVPUSH PRN (11:56)
[2018-07-27] MEDS ORDERED: MAG HYDROX/AL HYDROX/SIMETH 30 ML UNIT-DOSE CUP PO PRN (11:56)
--- NOTE | 2018-07-27 11:58 | OP ---
Operative Note - Note: Operative Date: 07/27/18 (keri) Pre-Operative Diagnosis: right knee djd Operation: right lauro tkr Post-Operative Diagnosis: Same as Pre-op Surgeon: Jermaine Coffey Electrical Prospecting Operator: Yosvany Lujan Anesthesiologist/NURSING MANAGER: Bruce Mendes Anesthesia: Spinal, Local Specimens Removed: bone fragments Estimated Blood Loss (mls): 150 Operative Report Dictated: Yes
[2018-07-27] MEDS ORDERED: CELECOXIB 200 MG CAPSULE PO ONE (12:00)
[2018-07-27] MEDS ORDERED: GABAPENTIN 300 MG CAPSULE (FP) PO ONE (12:00)
[2018-07-27] MEDS ORDERED: LACTATED RINGERS SOLUTION 1,000 ML IV SCH (12:00)
[2018-07-27] MEDS ORDERED: oxyCODONE HCL 5 MG TABLET PO PRN (13:01)
[2018-07-27] MEDS ORDERED: ACETAMINOPHEN 325 MG TABLET (FP) PO SCH (13:15)
--- NOTE | 2018-07-27 14:57 | OP ---
DATE OF OPERATION: 07/27/2018 PREOPERATIVE DIAGNOSIS: Degenerative joint disease, right knee. POSTOPERATIVE DIAGNOSIS: Degenerative joint disease, right knee. PROCEDURE: Right total knee replacement with robotic-assisted navigation (MAKOplasty). SURGEON ATTENDING: Jermaine Coffey MD ANESTHESIA: Regional and spinal. CLOSURE: A Triathlon cemented knee system with a 4 femur, 4 tibia, a 13 polyethylene, a 32 patella, and a 50 tibial stem with No. 1 Vicryl for fascia, 0 and 2-0 for subcutaneous, 3-0 Monocryl subcuticular, skin glue to skin, and 4-0 undyed Vicryl for pin sites. ESTIMATED BLOOD LOSS: Negligible. TOURNIQUET TIME: Approximately 24 minutes. COMPLICATIONS: None. CONDITION: To recovery room in stable condition. DESCRIPTION OF OPERATIVE PROCEDURE: The patient was taken to the operating room on July 27, 2018. Regional and spinal anesthesia was administered by the anesthesiologist. IV Kefzol and TXA were administered prophylactically prior to the case. A well-padded pneumatic tourniquet was placed on the right proximal thigh. The right lower extremity was prepped and draped in the usual sterile fashion. A 12-cm longitudinal midline incision centered over the patella was incised. Hemostasis was achieved with Bovie cautery. Sharp dissection was carried down to the level of the extensor mechanism with sufficient flaps to perform the procedure. A medial parapatellar arthrotomy was then made and the patella was inverted and the knee was flexed up. The fat pad was excised. Subperiosteal dissection was done on the anterior medial proximal tibia until the tibia was able to be brought forward facilitated by meniscal remnants and the anterior and posterior cruciate ligaments. Check points were to the tibia and the femur. Two threaded pins were drilled to the medial femoral condyle heading towards the posterior and the lateral femoral condyle. These tendons were fastened in navigation arrays. Two small stab incisions were made one hand breadth below the tibial tubercle and through these sites 2 pins were drilled up and to but not through the posterior cortex. These pins were also fashioned to the tibial and navigation array. The knee was registered with the central rotation of the hip, medial and lateral malleoli, and multiple sites on both the tibia and the femur with the navigation device. Excellent registration was confirmed by popping the bubbles. The osteophytes were the debrided sequentially. The knee was tensioned to varus and varus stress at both extension and 90 degrees of flexion. This data was used to them optimize the position of the virtual components on the navigation device. The robot was then brought into the field and registered. The bone was then cut as to the specifications that we had decided beforehand excising the bone and meniscal remnants. Spacer blocks in extension and flexion revealed equal tensioning with a 13-mm insert. The trial components were applied with a 13-mm insert and there was found to be full extension and full flexion with excellent tensioning throughout. The patella was callipered for thickness and then osteotomized down to the appropiate level and the lug holes were used to control 3 holes in the patella for a 32 button and a trial component was applied. The knee was then taken through range of motion and found to be in full extension and full flexion with excellent tracking of the patella throughout. Trial components were removed. The keel was punched and drilled. Due to the softness of the bone a 50-mm stem was added to the tibial baseplate with excellent fixation. The real components were then cemented using modern generation cement techniques with antibiotic cement and pressurization. The knee was thoroughly inspected to remove all excess cement. The real polyethylene was then clipped into place. Range of motion with stability and tracking was described earlier. The knee was thoroughly irrigated. The tourniquet which had been deflated just prior to cement implantation after exsanguinating with an Esmarch bandage and was inflated to 275 mmHg was removed once the components were cemented. The knee again was thoroughly inspected for hemostasis and was thoroughly irrigated. The medial patellar flap was closed by using a No. 1 Vicryl suture after 1 g of vancomycin powder was placed into the knee. The subcuticular tissue was then pulse antibiotic irrigated and closed with 0 and 2-0 Vicryl. After each closure the knee was taken through a range of motion which showed no undue tension on the repair. The skin was closed with 3-0 Monocryl subcuticular with skin glue. The distal stab incisions were closed with 4-0 Vicryl after the pins were removed. A sterile Aquacel dressing was applied followed by a Wisdom dressing. The patient was awakened from anesthesia and transferred to the recovery room in stable condition. The x-rays revealed excellent position of the component. The patient was transferred to the recovery room in stable condition. Rosanna [id number]
[2018-07-27] MEDS: oxyCODONE HCL 5 MG TABLET PO PRN ×3 (16:16→23:00)
[2018-07-27] MEDS: CEFAZOLIN 2 GM/D5W 2 GM/50 ML ML IVPB SCH (18:15)
[2018-07-27] MEDS: ACETAMINOPHEN 325 MG TABLET (FP) PO SCH (20:00)
[2018-07-27] MEDS: SENNOSIDES/DOCUSATE COMBO (SENNA PLUS) TABLET (UD) PO SCH (20:58)
[2018-07-27] MEDS: MIRTAZAPINE 15 MG TABLET (FP) PO SCH (20:59)
[2018-07-27] MEDS: PRAMIPEXOLE DIHYDROCHLORIDE 0.25 MG TABLET PO SCH (21:00)
[2018-07-27] MEDS: ROSUVASTATIN CA 5 MG TABLET (FP) PO SCH (21:00)
[2018-07-27] MEDS: METOPROLOL TARTRATE 25 MG TABLET (FP) PO SCH (21:01)
[2018-07-27] MEDS ORDERED: PATIENT'S OWN MEDICATION (NON-FORMULARY) (Pramipexole Di-Hcl [Pramipexole Er] 0.75 MG) PO SCH (22:00)
[2018-07-27] MEDS: NYSTATIN 100,000 UNIT/GM TOPICAL CREAM 15 GM TUBE TP SCH (22:52)
[2018-07-28] MEDS: CEFAZOLIN 2 GM/D5W 2 GM/50 ML ML IVPB SCH (01:03)
[2018-07-28] MEDS: ACETAMINOPHEN 325 MG TABLET (FP) PO SCH ×4 (01:04→21:20)
[2018-07-28] MEDS: oxyCODONE HCL 5 MG TABLET PO PRN ×2 (06:31→21:20)
[2018-07-28 08:12] LABS: HEMATOCRIT 26.8 % (32.4-45.2); HEMOGLOBIN 8.8 GM/dl (10.7-15.3); MCH 31.2 pg (25.7-33.7); MCHC 32.9 g/dl (32.0-36.0); MEAN CELL VOLUME 94.8 fl (80-96); MEAN PLT VOLUME 9.1 fl (7.5-11.1); PLATELET COUNT 150 K/MM3 (134-434); RBC 2.83 M/mm3 (3.60-5.2); RDW 14.7 % (11.6-15.6); WHITE BLOOD COUNT 8.6 K/mm3 (4.0-10.8)
--- NOTE | 2018-07-28 09:59 | PN ---
Progress Note (short form) - Note Progress Note: Ortho Pt seen and examined s/p right lauro tkr pod #1 Selected Entries 07/28/18 06:00 Temperature 97.4 F L Respiratory 18 Rate Blood Pressure 112/47 L Blood Pressure 68 Mean Laboratory Tests 07/28/18 07:41 WBC 8.6 Hgb 8.8 L Hct 26.8 L D Plt Count 150 dressing c/d/i, calf soft, nt rom 0-50, nvi a/p PT dvt ppx pain control d/c home tomorrow if stable
[2018-07-28] MEDS ORDERED: PT OWN MED DRAWER 7, Y5N ONE (10:08)
[2018-07-28] MEDS: LOSARTAN POTASSIUM 25 MG TABLET PO SCH (10:13)
[2018-07-28] MEDS: SENNOSIDES/DOCUSATE COMBO (SENNA PLUS) TABLET (UD) PO SCH ×2 (10:13→21:20)
[2018-07-28] MEDS: ALLOPURINOL 100 MG TABLET (FP) PO SCH (10:13)
[2018-07-28] MEDS: MULTIVITAMINS (DAILY MVI) TABLET (FP) PO SCH (10:13)
[2018-07-28] MEDS: FUROSEMIDE 20 MG TABLET (FP) PO SCH (10:13)
[2018-07-28] MEDS: PANTOPRAZOLE 40 MG TABLET (FP) PO SCH (10:13)
[2018-07-28] MEDS: METOPROLOL TARTRATE 25 MG TABLET (FP) PO SCH ×2 (10:13→21:20)
[2018-07-28] MEDS: PRAMIPEXOLE DIHYDROCHLORIDE 0.25 MG TABLET PO SCH ×2 (10:13→21:19)
[2018-07-28] MEDS: APIXABAN 2.5 MG TABLET PO SCH ×2 (10:13→21:20)
--- NOTE | 2018-07-28 10:13 | PN ---
Progress Note (short form) - Note Progress Note: 78F POD1 s/p R TKR under soinal anesthetic with peripheral nerve blocks for post operative pain relief. Pt states that pain is well controlled and reports some mild numbness and subjective weakness in right leg. AVSS. Continue current regimen. Will follow
[2018-07-28] MEDS: NYSTATIN 100,000 UNIT/GM TOPICAL CREAM 15 GM TUBE TP SCH ×2 (10:14→21:21)
[2018-07-28] MEDS: MIRTAZAPINE 15 MG TABLET (FP) PO SCH (21:20)
[2018-07-28] MEDS: ROSUVASTATIN CA 5 MG TABLET (FP) PO SCH (21:20)
[2018-07-29] MEDS: ACETAMINOPHEN 325 MG TABLET (FP) PO SCH ×4 (02:00→22:01)
[2018-07-29] MEDS: oxyCODONE HCL 5 MG TABLET PO PRN (04:20)
[2018-07-29 08:17] LABS: HEMATOCRIT 24.1 % (32.4-45.2); HEMOGLOBIN 7.9 GM/dl (10.7-15.3); MCH 31.4 pg (25.7-33.7); MEAN CELL VOLUME 95.1 fl (80-96); MEAN PLT VOLUME 8.8 fl (7.5-11.1); PLATELET COUNT 134 K/MM3 (134-434); RBC 2.53 M/mm3 (3.60-5.2); WHITE BLOOD COUNT 10.3 K/mm3 (4.0-10.8)
[2018-07-29] MEDS: LOSARTAN POTASSIUM 25 MG TABLET PO SCH (08:41)
[2018-07-29] MEDS: SENNOSIDES/DOCUSATE COMBO (SENNA PLUS) TABLET (UD) PO SCH ×2 (09:50→21:57)
[2018-07-29] MEDS: NYSTATIN 100,000 UNIT/GM TOPICAL CREAM 15 GM TUBE TP SCH ×2 (09:50→21:58)
[2018-07-29] MEDS: FUROSEMIDE 20 MG TABLET (FP) PO SCH (09:55)
[2018-07-29] MEDS: ALLOPURINOL 100 MG TABLET (FP) PO SCH (10:00)
[2018-07-29] MEDS: PANTOPRAZOLE 40 MG TABLET (FP) PO SCH (10:05)
[2018-07-29] MEDS: PRAMIPEXOLE DIHYDROCHLORIDE 0.25 MG TABLET PO SCH (10:10)
[2018-07-29] MEDS: MULTIVITAMINS (DAILY MVI) TABLET (FP) PO SCH (10:10)
--- NOTE | 2018-07-29 10:15 | PN ---
Progress Note (short form) - Note Progress Note: Ortho Pt seen and examined s/p right lauro tkr pod #2 Selected Entries 07/29/18 06:00 Temperature 98.3 F Pulse Rate 71 Respiratory 19 Rate Blood Pressure 100/50 L Laboratory Tests 07/29/18 07:44 WBC 10.3 Hgb 7.9 L Hct 24.1 L Plt Count 134 dressing c/d/i, calf soft, nt rom 0-70, nvi a/p PT dvt ppx pain control d/c to snf tomorrow if stable
[2018-07-29] MEDS: APIXABAN 2.5 MG TABLET PO SCH ×2 (10:20→21:58)
[2018-07-29] MEDS: METOPROLOL TARTRATE 25 MG TABLET (FP) PO SCH ×3 (10:50→22:03)
[2018-07-29] MEDS ORDERED: PT OWN MED DRAWER 7, Y5N ONE (21:09)
[2018-07-29] MEDS: ROSUVASTATIN CA 5 MG TABLET (FP) PO SCH (21:58)
[2018-07-29] MEDS: MIRTAZAPINE 15 MG TABLET (FP) PO SCH (22:01)
[2018-07-29 22:17] VITALS: PULSE 62
[2018-07-30] MEDS: PRAMIPEXOLE DIHYDROCHLORIDE 0.25 MG TABLET PO SCH ×2 (00:20→10:38)
[2018-07-30] MEDS: ACETAMINOPHEN 325 MG TABLET (FP) PO SCH ×3 (01:56→14:00)
[2018-07-30 06:16] VITALS: BP 104/47; TEMP 98.2
[2018-07-30 08:38] LABS: HEMATOCRIT 26.5 % (32.4-45.2); HEMOGLOBIN 8.6 GM/dl (10.7-15.3); MCH 30.4 pg (25.7-33.7); MCHC 32.4 g/dl (32.0-36.0); MEAN CELL VOLUME 93.8 fl (80-96); MEAN PLT VOLUME 8.2 fl (7.5-11.1); PLATELET COUNT 166 K/MM3 (134-434); RBC 2.82 M/mm3 (3.60-5.2); RDW 14.3 % (11.6-15.6); WHITE BLOOD COUNT 10.6 K/mm3 (4.0-10.8)
[2018-07-30] MEDS ORDERED: PT OWN MED DRAWER 7, Y5N ONE (08:46)
--- NOTE | 2018-07-30 08:57 | DS ---
Physical Examination Vital Signs: Vital Signs Temperature 98.2 F 07/30/18 06:00 Pulse Rate 62 07/30/18 06:00 Respiratory Rate 18 07/30/18 06:00 Blood Pressure 104/47 L 07/30/18 06:00 O2 Sat by Pulse Oximetry (%) 97 07/30/18 06:00 Labs: CBC, BMP 07/30/18 08:35 Discharge Summary Reason For Visit: OSTEOARTHRITIS Procedures: Principal: right tkr Hospital Course: admitted for elective right lauro tkr, uneventful post-op, stable for d/c Condition: Good - Instructions Diet, Activity, Other Instructions: Post-op Instructions-Total Knee Replacement Call the office for a follow-up appointment in 1 week - [phone] Aspirin 325mg daily for 6 weeks. Pain medication was sent into your pharmacy. Apply Graduated Compression Stockings (TEDs) to both lower extremities- remove daily for hygiene ONLY Apply Sequential Compression Device (SCDs) to both Lower extremities remove for PT and hygiene ONLY Apply cold packs to affected area for 15 minutes every 2 hours. Physical Therapist will come to your home for the first 5 days. You will be set up with outpatient PT at your first post-operative visit. Patient may ambulate as tolerated-encourage self care (at least every 2-3 hours while awake) with walker or cane Maintain Aquacel (waterproof) dressing to operative wound (will be removed by surgeon at first office visit) Shower with Aquacel dressing in place-if Aquacel integrity compromised, remove and apply dry sterile dressing and notify Orthopedist. DO NOT SHOWER unless Orthopedists approves without Aquacel dressing CONTACT THE OFFICE FOR ANY CHANGE IN YOUR CONDITION (for example-fever greater than 102 degrees, excessive bleeding from operative site, purulent drainage, severe swelling or pain) GO TO THE EMERGENCY ROOM IF THERE IS A MEDICAL EMERGENCY Knee Precautions: * Keep a rolled towel under affected heel while in bed or chair (to keep knee in extension) * Keep affected leg elevated except during mealtimes * DO NOT PLACE PILLOW UNDER AFFECTED KNEE * If you have any questions, please do not hesitate to call the office - . Referrals: Jermaine Coffey MD [Staff Physician] - Disposition: ALF FACILITY - Home Medications Comprehensive Discharge Medication List: Ambulatory Orders Allopurinol [Zyloprim -] 100 mg PO DAILY 08/15/13 Mirtazapine [Remeron -] 30 mg PO HS 07/10/15 Metoprolol Tartrate [Lopressor -] 12.5 mg PO BID 02/17/17 Pramipexole Di-HCl [Pramipexole ER] 0.75 mg PO BID 02/17/17 Rosuvastatin Calcium [Crestor] 5 mg PO HS 02/17/17 Apixaban [Eliquis] 2.5 mg PO BID 03/08/18 Furosemide [Lasix] 20 mg PO DAILY 03/08/18 Losartan Potassium 25 mg PO DAILY 07/19/18 Oxycodone HCl/Acetaminophen [Percocet 5-325 mg Tablet -] 1 - 2 tab PO Q6H #50 tab MDD 8 07/27/18
--- NOTE | 2018-07-30 08:57 | PN ---
Progress Note (short form) - Note Progress Note: Ortho Pt seen and examined s/p right lauro tkr pod #3 Selected Entries 07/30/18 06:00 Temperature 98.2 F Pulse Rate 62 Respiratory 18 Rate Blood Pressure 104/47 L Laboratory Tests 07/30/18 08:35 WBC 10.6 Hgb 8.6 L Hct 26.5 L Plt Count 166 dressing c/d/i, calf soft, nt rom 0-70, nvi a/p PT dvt ppx pain control d/c to snf today f/u in the office in 1-2 weeks
[2018-07-30] MEDS: APIXABAN 2.5 MG TABLET PO SCH (10:38)
[2018-07-30] MEDS: ALLOPURINOL 100 MG TABLET (FP) PO SCH (10:38)
[2018-07-30] MEDS: FUROSEMIDE 20 MG TABLET (FP) PO SCH (10:38)
[2018-07-30] MEDS: MULTIVITAMINS (DAILY MVI) TABLET (FP) PO SCH (10:38)
[2018-07-30] MEDS: NYSTATIN 100,000 UNIT/GM TOPICAL CREAM 15 GM TUBE TP SCH (10:38)
[2018-07-30] MEDS: SENNOSIDES/DOCUSATE COMBO (SENNA PLUS) TABLET (UD) PO SCH (10:38)
[2018-07-30] MEDS: PANTOPRAZOLE 40 MG TABLET (FP) PO SCH (10:38)
[2018-07-30] MEDS: LOSARTAN POTASSIUM 25 MG TABLET PO SCH (11:01)
[2018-07-30] MEDS: METOPROLOL TARTRATE 25 MG TABLET (FP) PO SCH (11:01)
[2018-07-30] MEDS ORDERED: oxyCODONE HCL 5 MG TABLET ONE (13:15)
--- NOTE | 2018-08-03 16:25 | PATH ---
Surgical Pathology Report Patient Name: ARLETH CARCAMO Med. Rec. #: [id number] /Age/Gender: 1940 (Age: 78) / F Account: [id number] Location: [facility] MED-SURG Taken: 07/27/2018 Received: 07/27/2018 Reported: 08/03/2018 Physicians: Jermaine Coffey M.D. Specimen(s) Received RIGHT KNEE BONES Clinical History Osteoarthritis right knee Final Diagnosis KNEE BONES, RIGHT, TOTAL KNEE REPLACEMENT: DEGENERATIVE JOINT DISEASE. Electronically Signed Livia Gonzales M.D. Gross Description Received in formalin, labeled "right knee bones" are multiple portions of cartilage-capped bone with an aggregate of 9 x 8.5 x 3 cm. The articular surfaces appear granular and show areas of eburnation. Beer Maker sections are submitted in one cassette after decalcification. AE/07/30/2018 ebram/07/30/2018
== END 2018-07-30 13:30 | DRG 470 ==
LOC: FM/S 06:51
PROVIDERS: ADMIT Orthopaedic Surgery; ATTEND Orthopaedic Surgery
PROC: 8E0Y0CZ Robotic Assisted Procedure of Lower Extremity, Open Approach (ICD-10-PCS; 2018-07-27)
PROC: 0SRC0J9 Replacement of Right Knee Joint with Synthetic Substitute, Cemented, Open Approach (ICD-10-PCS; principal; 2018-07-27 09:35)
DX: M17.11 Unilateral primary osteoarthritis, right knee (principal); B19.10 Unspecified viral hepatitis B without hepatic coma; I48.91 Unspecified atrial fibrillation; I10 Essential (primary) hypertension; E78.5 Hyperlipidemia, unspecified; E21.3 Hyperparathyroidism, unspecified; Z86.11 Personal history of tuberculosis; Z85.038 Personal history of other malignant neoplasm of large intestine; Z86.718 Personal history of other venous thrombosis and embolism
CPT/HCPCS: 36415; 73560-TC-RT-FY; 85027; 88304-TC; 88311-TC; 94760; 97116-GP; 97162-GP

== ENCOUNTER 2019-08-12 05:10 | Inpatient (IN) | payer OTHER, MEDICARE ==
--- NOTE | 2019-08-12 05:20 | PDOC ---
History of Present Illness - General Stated Complaint: ABD PAIN,DIARRHEA Time Seen by Provider: 08/12/19 05:13 - History of Present Illness Initial Comments: 08/12/19 06:52 79F with pmh of DVT of both lower extremities, HTN, Afib, colon cancer s/p colon resection, presenting with severe abdominal pain after attempting to urinate around 4am. She states the pain was 10/10, suprapubic radiating to the flanks. Was able to urinate but not much. Also had very soft "mushy" stool. Denies fever, chills, n/d. Mentioned that she has a history of rectal prolapse. Past History - Past Medical History Allergies/Adverse Reactions: Allergies Allergy/AdvReac Type Severity Reaction Status Date / Time iodine Allergy Severe "TURNED Verified 08/12/19 05:24 RED LIKE A LOBSTER" phenobarbital Allergy Mild Itching Verified 08/12/19 05:24 Iodinated Contrast Media Allergy Verified 08/12/19 05:24 [Iodinated Contrast Media - IV Dye] Sulfa (Sulfonamide Allergy Rash Verified 08/12/19 05:24 Antibiotics) prednisone AdvReac hallucinati Verified 08/12/19 05:24 ons Home Medications: Ambulatory Orders Allopurinol [Zyloprim -] 100 mg PO DAILY 08/15/13 Mirtazapine [Remeron -] 30 mg PO HS 07/10/15 Metoprolol Tartrate [Lopressor -] 12.5 mg PO BID 02/17/17 Pramipexole Di-HCl [Pramipexole ER] 0.75 mg PO BID 02/17/17 Rosuvastatin Calcium [Crestor] 5 mg PO HS 02/17/17 Apixaban [Eliquis] 2.5 mg PO BID 03/08/18 Furosemide [Lasix] 20 mg PO DAILY 03/08/18 Losartan Potassium 25 mg PO DAILY 07/19/18 Oxycodone HCl/Acetaminophen [Percocet 5-325 mg Tablet -] 1 - 2 tab PO Q6H #50 tab MDD 8 07/27/18 Anemia: Yes (CHRONIC) Asthma: No Cancer: Yes (COLON AGE 50, LEFT BREAST CA) Cardiac Disorders: Yes (A-FIB) CVA: No COPD: No CHF: No Dementia: No Diabetes: No GI Disorders: No Disorders: No HTN: Yes Hypercholesterolemia: Yes Liver Disease: No Seizures: No Thyroid Disease: No - Surgical History Abdominal Surgery: Yes (Colon Resection AGE 50) Appendectomy: No Cardiac Surgery: No Cholecystectomy: No Lung Surgery: No Neurologic Surgery: No Orthopedic Surgery: No - Psycho Social/Smoking Cessation Hx Smoking Status: Yes Smoking History: Never smoked Have you smoked in the past 12 months: No Number of Cigarettes Smoked Daily: 0 Hx Alcohol Use: Yes (WINE) Drug/Substance Use Hx: No Substance Use Type: None Hx Substance Use Treatment: No Abd/GI Specific PMHX - Complaint Specific PMHX GERD: No Review of Systems - Review of Systems Able to Perform ROS?: Yes Is the patient limited Croatian proficient: No Constitutional: No: Symptoms Reported HEENTM: No: Symptoms Reported Respiratory: No: Symptoms reported Cardiac (ROS): No: Symptoms Reported ABD/GI: Yes: See HPI : No: Symptoms Reported Musculoskeletal: No: Symptoms Reported Integumentary: No: Symptoms Reported Neurological: No: Symptoms reported All Other Systems: Reviewed and Negative *Physical Exam - Physical Exam General Appearance: Yes: Nourished, Appropriately Dressed. No: Apparent Distress HEENT: positive: EOMI, TRELL, Normal ENT Inspection Respiratory/Chest: positive: Lungs Clear, Normal Breath Sounds. negative: Chest Tender, Respiratory Distress Cardiovascular: positive: Regular Rhythm, Regular Rate, S1, S2 Gastrointestinal/Abdominal: positive: Normal Bowel Sounds, Tender, Distended ( bladder) Musculoskeletal: positive: Normal Inspection. negative: CVA Tenderness Extremity: positive: Normal Capillary Refill, Normal Inspection, Normal Range of Motion Integumentary: positive: Normal Color, Dry, Warm Neurologic: positive: Fully Oriented, Alert, Normal Mood/Affect ED Treatment Course - LABORATORY CBC & Chemistry Diagram: 08/12/19 05:55 08/12/19 05:55 - RADIOLOGY Radiology Studies Ordered: Category Date Time Status CHEST X-RAY PORTABLE* [RAD] Stat Radiology 08/12/19 05:17 Ordered Medical Decision Making - Medical Decision Making 08/12/19 07:04 79F with pmh of DVT of both lower extremities, HTN, Afib, colon cancer s/p colon resection, presenting with severe abdominal pain after attempting to urinate around 4am. Patient had urinated all over the bed before townsend could be placed. 30mL obtained from townsend. R/o UTI with UA, Obtain bloodwork amd imaging to r/o anatomical etiologies for the retention. Patient signed out to Dr. Darling. Discharge - Discharge Information Problems reviewed: Yes Clinical Impression/Diagnosis: UTI (urinary tract infection) - Follow up/Referral Referrals: Quan Lamas MD [Primary Care Provider] - - Patient Discharge Instructions - Post Discharge Activity
[2019-08-12 05:25] VITALS: BMI 23.1
[2019-08-12 06:06] LABS: BASO % 0.6 % (0-2.0); EOS % 0.5 % (0-4.5); HEMATOCRIT 34.1 % (32.4-45.2); HEMOGLOBIN 11.1 GM/dL (10.7-15.3); LYMPH % 6.2 % (8-40); MCH 30.2 pg (25.7-33.7); MCHC 32.6 g/dl (32.0-36.0); MEAN CELL VOLUME 92.8 fl (80-96); MEAN PLT VOLUME 9.1 fl (7.5-11.1); NEUT % 88.7 % (42.8-82.8); PLATELET COUNT 173 K/MM3 (134-434); RBC 3.67 M/mm3 (3.60-5.2); WHITE BLOOD COUNT 12.7 K/mm3 (4.0-10.0)
[2019-08-12 06:25] LABS: ALBUMIN 3.9 g/dl (3.4-5.0); BILIRUBIN,TOTAL 0.3 mg/dL (0.2-1); BLOOD UREA NITROGEN 41.1 mg/dL (7-18); CALCIUM 9.6 mg/dL (8.5-10.1); CREATININE 1.6 mg/dL (0.55-1.3); POTASSIUM 4.1 mmol/L (3.5-5.1); TOT PROT 7.2 g/dl (6.4-8.2)
--- NOTE | 2019-08-12 06:30 | PDOC ---
Attending Attestation - Resident Resident Name: KingJono - ED Attending Attestation I have performed the following: I have examined & evaluated the patient, The case was reviewed & discussed with the resident, I agree w/resident's findings & plan, Exceptions are as noted - HPI HPI: 08/12/19 07:44 79F pmh HTN, AFib on AC, Breast CA, Colon CA s/p resection, bilateral dvts here with oliguria and abdominal px. Px spiked last night around 3am when she tried to urinate and strained. She was unable to pass much urine. 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
[2019-08-12 07:09] LABS: EPI CELLS 0.2 /HPF (0-5/HPF); HYALINE CASTS 13 /lpf (0-8); URINE APPEARANCE CLOUDY; URINE BACTERIA 4014.9 /hpf (NEGATIVE); URINE BILIRUBIN NEGATIVE (NEGATIVE); URINE COLOR YELLOW; URINE GLUCOSE (UA) NEGATIVE (NEGATIVE); URINE KETONE NEGATIVE (NEGATIVE); URINE LEUK ESTERASE 2+ (NEGATIVE); URINE NITRITE NEGATIVE (NEGATIVE); URINE PROTEIN 1+ (NEGATIVE); URINE RBC 20 /hpf (0-4); URINE UROBILINOGEN 0.2 mg/dL (0.2-1.0); URINE WBC 63 /hpf (0-5)
--- NOTE | 2019-08-12 07:11 | PDOC ---
*Physical Exam - Vital Signs Last Vital Signs Temp Pulse Resp BP Pulse Ox 97.7 F 62 18 180/68 H 97 08/12/19 05:17 08/12/19 05:17 08/12/19 05:17 08/12/19 05:17 08/12/19 05:17 ED Treatment Course - LABORATORY CBC & Chemistry Diagram: 08/14/19 08:26 08/13/19 05:50 - ADDITIONAL ORDERS Additional order review: Laboratory Results 08/12/19 08/12/19 08/12/19 06:45 05:55 05:55 Sodium Potassium Chloride Carbon Dioxide Anion Gap BUN Creatinine Est GFR (CKD-EPI)AfAm Est GFR (CKD-EPI)NonAf Random Glucose Lactic Acid 1.4 Calcium Total Bilirubin AST ALT Alkaline Phosphatase Troponin I 0.10 H Total Protein Albumin Urine Color Yellow Urine Appearance Cloudy Urine pH 6.0 Ur Specific [place] 1.012 Urine Protein 1+ H Urine Glucose (UA) Negative Urine Ketones Negative Urine Blood 1+ H Urine Nitrite Negative Urine Bilirubin Negative Urine Urobilinogen 0.2 Ur Leukocyte Esterase 2+ H Urine WBC (Auto) 63 Urine RBC (Auto) 20 Urine Casts (Auto) 13 U Epithel Cells (Auto) 0.2 Urine Bacteria (Auto) 4014.9 08/12/19 05:55 Sodium 141 Potassium 4.1 Chloride 110 H Carbon Dioxide 23 Anion Gap 7 L BUN 41.1 H Creatinine 1.6 H Est GFR (CKD-EPI)AfAm 35.15 Est GFR (CKD-EPI)NonAf 30.33 Random Glucose 151 H Lactic Acid Calcium 9.6 Total Bilirubin 0.3 AST 21 ALT 18 Alkaline Phosphatase 97 Troponin I Total Protein 7.2 Albumin 3.9 Urine Color Urine Appearance Urine pH Ur Specific [place] Urine Protein Urine Glucose (UA) Urine Ketones Urine Blood Urine Nitrite Urine Bilirubin Urine Urobilinogen Ur Leukocyte Esterase Urine WBC (Auto) Urine RBC (Auto) Urine Casts (Auto) U Epithel Cells (Auto) Urine Bacteria (Auto) 08/12/19 05:55 RBC 3.67 MCV 92.8 MCHC 32.6 RDW 14.0 MPV 9.1 Neutrophils % 88.7 H D Lymphocytes % 6.2 L D Monocytes % 4.0 Eosinophils % 0.5 D Basophils % 0.6 Medical Decision Making - Medical Decision Making 08/12/19 07:10 rcvd sign out from night team - CT - labs - trend troponin - dispo pending 08/12/19 09:15 CT A/P IOC IMPRESSION: 4 mm nodule RML, advise followup according to established criteria. Small stones or cortical calcifications right kidney. No ureteral or bladder calculi. Bilateral perinephric edema, nonspecific. Small right renal cyst. Caliectasis bilateral kidneys. Unremarkable liver, spleen, stomach, pancreas. Cholelithiasis. No bowel obstruction or inflammation. Diverticulosis colon. Surgical changes cecum, distal ileum, and descending colon. No free fluid or free air. No evidence of appendicitis. Harper catheter in bladder. Chronic right pelvic fractures 08/12/19 10:11 Trop uptrending 0.1 now 0.67 RPT EKG unchanged from first EKG on this visit Admit //ADMITTED TO TELE Discharge - Discharge Information Problems reviewed: Yes Clinical Impression/Diagnosis: UTI (urinary tract infection) Qualifiers: Urinary tract infection type: site unspecified Hematuria presence: without hematuria Qualified Code(s): N39.0 - Urinary tract infection, site not specified Condition: Stable - Admission Yes - Follow up/Referral - Patient Discharge Instructions - Post Discharge Activity
[2019-08-12] MEDS ORDERED: SODIUM CHLORIDE 0.9% 500 ML INFUS.BAG IV ONE (07:20)
[2019-08-12] MEDS ORDERED: CEPHALEXIN MONOHYDRATE 500 MG CAPSULE (UD) PO ONE (07:25)
[2019-08-12] MEDS ORDERED: CEPHALEXIN MONOHYDRATE 500 MG CAPSULE (UD) ONE (07:34)
[2019-08-12] MEDS ORDERED: CEFTRIAXONE 1 GM in DEXTROSE 5%-WATER - 100 ML IVPB ONE (09:47)
[2019-08-12] MEDS ORDERED: CEFTRIAXONE 1 GM/50 ML BAG ONE (10:05)
[2019-08-12] MEDS ORDERED: ASPIRIN 81 MG CHEWABLE TABLETS PO ONE (10:12)
[2019-08-12] MEDS ORDERED: ASPIRIN 81 MG CHEWABLE TABLETS ONE (10:35)
--- NOTE | 2019-08-12 13:21 | EKG ---
Test Reason : Blood Pressure : / mmHG Vent. Rate : 064 BPM Atrial Rate : 064 BPM P-R Int : 176 ms QRS Dur : 086 ms QT Int : 422 ms P-R-T Axes : 049 -25 -24 degrees QTc Int : 435 ms SINUS RHYTHM WITH PREMATURE SUPRAVENTRICULAR COMPLEXES MODERATE VOLTAGE CRITERIA FOR LVH, MAY BE NORMAL VARIANT CANNOT RULE OUT SEPTAL INFARCT , AGE UNDETERMINED NONSPECIFIC ST ABNORMALITY ABNORMAL ECG Confirmed by VIJAY BOWMAN MD ([id number]) on 08/12/2019 1:21:29 PM Referred By: Confirmed By:IVJAY BOWMAN MD
--- NOTE | 2019-08-12 13:23 | EKG ---
Test Reason : Blood Pressure : / mmHG Vent. Rate : 064 BPM Atrial Rate : 064 BPM P-R Int : 160 ms QRS Dur : 092 ms QT Int : 416 ms P-R-T Axes : 067 -16 014 degrees QTc Int : 429 ms SINUS RHYTHM WITH PREMATURE SUPRAVENTRICULAR COMPLEXES MODERATE VOLTAGE CRITERIA FOR LVH, MAY BE NORMAL VARIANT WHEN COMPARED WITH ECG OF 22-MAR-2018 13:58, PREMATURE SUPRAVENTRICULAR COMPLEXES ARE NOW PRESENT Confirmed by VIJAY BOWMAN MD ([id number]) on 08/12/2019 1:23:01 PM Referred By: Confirmed By:VIJAY BOWMAN MD
--- NOTE | 2019-08-12 13:35 | HP ---
Admitting History and Physical - Primary Care Physician PCP: Mounika Caceres - Admission Chief Complaint: came in for difficulty urinating History of Present Illness: 08/12/19 06:52 79F with pmh of DVT of both lower extremities, HTN, Afib, colon cancer s/p colon resection, presenting with severe abdominal pain after attempting to urinate around 4am. 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 abscess) Cardiovascular: Yes: AFIB, HTN, Hyperlipdemia Gastrointestinal: Yes: Cancer (colon), Diverticulosis, Gastritis (h pylori) Hepatobiliary: Yes: Hepatitis B Renal/: Yes: Renal Calculi Heme/Onc: Yes: Anemia, Cancer (colon), Other (dvt) Infectious Disease: Yes: Tuberculosis (treated??) Endocrine: Yes: Hyperparathyroidism - Past Surgical History Past Surgical History: Yes: Cholecystectomy, Colectomy - Smoking History Smoking history: Never smoked Have you smoked in the past 12 months: No Aproximately how many cigarettes per day: 0 - Alcohol/Substance Use Hx Alcohol Use: Yes (WINE) Home Medications - Allergies Allergies/Adverse Reactions: Allergies Allergy/AdvReac Type Severity Reaction Status Date / Time iodine Allergy Severe "TURNED Verified 08/12/19 05:24 RED LIKE A LOBSTER" phenobarbital Allergy Mild Itching Verified 08/12/19 05:24 Iodinated Contrast Media Allergy Verified 08/12/19 05:24 [Iodinated Contrast Media - IV Dye] Sulfa (Sulfonamide Allergy Rash Verified 08/12/19 05:24 Antibiotics) prednisone AdvReac hallucinati Verified 08/12/19 05:24 ons - Home Medications Home Medications: Ambulatory Orders Allopurinol [Zyloprim -] 100 mg PO DAILY 08/15/13 Mirtazapine [Remeron -] 30 mg PO HS 07/10/15 Metoprolol Tartrate [Lopressor -] 12.5 mg PO BID 02/17/17 Pramipexole Di-HCl [Pramipexole ER] 0.75 mg PO BID 02/17/17 Rosuvastatin Calcium [Crestor] 5 mg PO HS 02/17/17 Apixaban [Eliquis] 2.5 mg PO BID 03/08/18 Furosemide [Lasix] 20 mg PO DAILY 03/08/18 Losartan Potassium 25 mg PO DAILY 07/19/18 Oxycodone HCl/Acetaminophen [Percocet 5-325 mg Tablet -] 1 - 2 tab PO Q6H #50 tab MDD 8 07/27/18 Review of Systems - Review of Systems Neck: reports: No Symptoms Cardiovascular: reports: No Symptoms Respiratory: reports: No Symptoms Gastrointestinal: reports: No Symptoms Physical Examination Vital Signs: Vital Signs Temperature 97.7 F 08/12/19 05:17 Pulse Rate 62 08/12/19 05:17 Respiratory Rate 18 08/12/19 05:17 Blood Pressure 180/68 H 08/12/19 05:17 O2 Sat by Pulse Oximetry (%) 97 08/12/19 12:26 vitals repeat on the tele floor 153/71 HR 69 Constitutional: Yes: Calm, Thin Cardiovascular: Yes: Regular Rate and Rhythm, S1, S2 Respiratory: Yes: CTA Bilaterally Gastrointestinal: Yes: Normal Bowel Sounds, Soft Edema: Yes Labs: CBC, BMP 08/12/19 05:55 08/12/19 05:55 Imaging - Results Cat Scan: Pending Problem List - Problems (1) Elevated troponin Assessment/Plan: telemetry trend troponin echo look for wall motion abnormalites cardiology eval Code(s): R79.89 - OTHER SPECIFIED ABNORMAL FINDINGS OF BLOOD CHEMISTRY (2) UTI (urinary tract infection) Assessment/Plan: iv rocephin cultures pending repeat cbc Code(s): N39.0 - URINARY TRACT INFECTION, SITE NOT SPECIFIED (3) Afib Assessment/Plan: eliquis metoprolol Code(s): I48.91 - UNSPECIFIED ATRIAL FIBRILLATION Qualifiers: Atrial fibrillation type: paroxysmal Qualified Code(s): I48.0 - Paroxysmal atrial fibrillation (4) CHF (congestive heart failure) Assessment/Plan: lasix Code(s): I50.9 - HEART FAILURE, UNSPECIFIED (5) HLD (hyperlipidemia) Assessment/Plan: crestor lipid panel Code(s): E78.5 - HYPERLIPIDEMIA, UNSPECIFIED
--- NOTE | 2019-08-12 13:35 | CON.CARD ---
Consult Consult Specialty:: Cardiology Referred by:: Adams Reason for Consultation:: elevated troponins - History of Present Illness Chief Complaint: Urinary retention History of Present Illness: The patient is a 79-year-old female, we've a history of hypertension, hyperlipidemia, paroxysmal atrial fibrillation on Anticoagulation, DVT,chronic kidney disease, now presenting with transient urinary retention, fever and lethargy. Found to have elevated troponins. X The patient denies chest pains and shortness of breath. She is breathing quite comfortably. She was able to pass urine. Offering no specific complaints. 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) Cardio/Vascular: Yes: AFIB, HTN, Hyperlipdemia Gastrointestinal: Yes: Cancer (colon), Diverticulosis, Gastritis (h pylori) Hepatobiliary: Yes: Hepatitis B Renal/: Yes: Renal Calculi Infectious Disease: Yes: Tuberculosis (treated??) Endocrine: Yes: Hyperparathyroidism - Past Surgical History Past Surgical History: Yes: Cholecystectomy, Colectomy - Alcohol/Substance Use Hx Alcohol Use: Yes (WINE) - Smoking History Smoking history: Never smoked Have you smoked in the past 12 months: No Aproximately how many cigarettes per day: 0 Home Medications - Allergies Allergies/Adverse Reactions: Allergies Allergy/AdvReac Type Severity Reaction Status Date / Time iodine Allergy Severe "TURNED Verified 08/12/19 05:24 RED LIKE A LOBSTER" phenobarbital Allergy Mild Itching Verified 08/12/19 05:24 Iodinated Contrast Media Allergy Verified 08/12/19 05:24 [Iodinated Contrast Media - IV Dye] Sulfa (Sulfonamide Allergy Rash Verified 08/12/19 05:24 Antibiotics) prednisone AdvReac hallucinati Verified 08/12/19 05:24 ons - Home Medications Home Medications: Ambulatory Orders Allopurinol [Zyloprim -] 100 mg PO DAILY 08/15/13 Mirtazapine [Remeron -] 30 mg PO HS 07/10/15 Metoprolol Tartrate [Lopressor -] 12.5 mg PO BID 02/17/17 Pramipexole Di-HCl [Pramipexole ER] 0.75 mg PO BID 02/17/17 Rosuvastatin Calcium [Crestor] 5 mg PO HS 02/17/17 Apixaban [Eliquis] 2.5 mg PO BID 03/08/18 Furosemide [Lasix] 20 mg PO DAILY 03/08/18 Losartan Potassium 25 mg PO DAILY 07/19/18 Oxycodone HCl/Acetaminophen [Percocet 5-325 mg Tablet -] 1 - 2 tab PO Q6H #50 tab MDD 8 07/27/18 Review of Systems - Review of Systems Constitutional: reports: Chills, Fever, Weakness Eyes: reports: No Symptoms HENT: reports: No Symptoms Neck: reports: No Symptoms Cardiovascular: reports: No Symptoms Respiratory: reports: No Symptoms Gastrointestinal: reports: No Symptoms Genitourinary: reports: Burning, Dysuria Breasts: reports: No Symptoms Reported Musculoskeletal: reports: No Symptoms Integumentary: reports: No Symptoms Neurological: reports: No Symptoms Endocrine: reports: No Symptoms Hematology/Lymphatic: reports: No Symptoms Psychiatric: reports: No Symptoms Vital Signs: Vital Signs Temperature 97.7 F 08/12/19 05:17 Pulse Rate 62 08/12/19 05:17 Respiratory Rate 18 08/12/19 05:17 Blood Pressure 180/68 H 08/12/19 05:17 O2 Sat by Pulse Oximetry (%) 97 08/12/19 12:26 Constitutional: Yes: Well Nourished, No Distress, Calm Eyes: Yes: WNL, Conjunctiva Clear, EOM Intact HENT: Yes: WNL, Atraumatic, Normocephalic Neck: Yes: WNL, Supple, Trachea Midline Respiratory: Yes: WNL, Regular, CTA Bilaterally Gastrointestinal: Yes: WNL, Normal Bowel Sounds, Soft Renal/: Yes: Anuria Cardiovascular: Yes: WNL, Regular Rate and Rhythm JVD: No Carotid Bruit: No PMI: Non-Displaced Heart Sounds: Yes: S1, S2 Murmur: Yes: Systolic Murmur, Grade 2 Musculoskeletal: Yes: WNL Extremities: Yes: WNL Edema: No Peripheral Pulses WNL: Yes Neurological: Yes: WNL, Alert, Oriented ...Motor Strength: WNL Psychiatric: Yes: WNL, Alert, Oriented - Other Data Labs, Other Data: CBC, BMP 08/12/19 05:55 08/12/19 05:55 Troponin, BNP 08/12/19 08/12/19 05:55 09:08 Troponin I 0.10 H 0.67 H* Troponin, BNP 08/12/19 08/12/19 05:55 09:08 Troponin I 0.10 H 0.67 H* Assessment/Plan The patient is a 79-year-old female, we've a history of hypertension, hyperlipidemia, paroxysmal atrial fibrillation on Anticoagulation, DVT,chronic kidney disease, now presenting with transient urinary retention, fever and lethargy. Found to have elevated troponins. X The patient denies chest pains and shortness of breath. She is breathing quite comfortably. She was able to pass urine. Offering no specific complaints. the patient has mildly elevated troponins, already trending down.She is in sinus rhythm.Precordium ECG changes most likely due to lead placement. no need for cardiac monitoring. No need for further cardiac workup at this point. Please arrange for an outpatient follow-up visit with within one week of discharge. [facility]
--- NOTE | 2019-08-12 15:21 | CONSULT ---
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) Cardio/Vascular: Yes: AFIB, HTN, Hyperlipdemia Gastrointestinal: Yes: Cancer (colon), Diverticulosis, Gastritis (h pylori) Hepatobiliary: Yes: Hepatitis B Renal/: Yes: Renal Calculi Infectious Disease: Yes: Tuberculosis (treated??) Endocrine: Yes: Hyperparathyroidism - Past Surgical History Past Surgical History: Yes: Cholecystectomy, Colectomy - Alcohol/Substance Use Hx Alcohol Use: Yes (WINE) - Smoking History Smoking history: Never smoked Have you smoked in the past 12 months: No Aproximately how many cigarettes per day: 0 Home Medications - Allergies Allergies/Adverse Reactions: Allergies Allergy/AdvReac Type Severity Reaction Status Date / Time iodine Allergy Severe "TURNED Verified 08/12/19 05:24 RED LIKE A LOBSTER" phenobarbital Allergy Mild Itching Verified 08/12/19 05:24 Iodinated Contrast Media Allergy Verified 08/12/19 05:24 [Iodinated Contrast Media - IV Dye] Sulfa (Sulfonamide Allergy Rash Verified 08/12/19 05:24 Antibiotics) prednisone AdvReac hallucinati Verified 08/12/19 05:24 ons - Home Medications Home Medications: Ambulatory Orders Allopurinol [Zyloprim -] 100 mg PO DAILY 08/15/13 Mirtazapine [Remeron -] 30 mg PO HS 07/10/15 Metoprolol Tartrate [Lopressor -] 12.5 mg PO BID 02/17/17 Pramipexole Di-HCl [Pramipexole ER] 0.75 mg PO BID 02/17/17 Rosuvastatin Calcium [Crestor] 5 mg PO HS 02/17/17 Apixaban [Eliquis] 2.5 mg PO BID 03/08/18 Furosemide [Lasix] 20 mg PO DAILY 03/08/18 Losartan Potassium 25 mg PO DAILY 07/19/18 Oxycodone HCl/Acetaminophen [Percocet 5-325 mg Tablet -] 1 - 2 tab PO Q6H #50 tab MDD 8 07/27/18 Physical Exam Vital Signs: Vital Signs Temperature 98.2 F 08/12/19 13:35 Pulse Rate 68 08/12/19 13:35 Respiratory Rate 18 08/12/19 13:35 Blood Pressure 153/71 08/12/19 13:35 O2 Sat by Pulse Oximetry (%) 97 08/12/19 12:26 Labs: CBC, BMP 08/12/19 05:55 08/12/19 05:55 Assessment/Plan Current Medications Generic Name Dose Route Start Last Admin Trade Name Freq PRN Reason Stop Dose Admin Apixaban 5 mg 08/12/19 22:00 Eliquis - PO BID ZITA Furosemide 20 mg 08/13/19 10:00 Lasix - PO DAILY ZITA Ceftriaxone Sodium 1 gm/ 50 mls @ 200 mls/hr 08/13/19 10:00 Dextrose IVPB DAILY ZITA Protocol Losartan Potassium 25 mg 08/13/19 08:00 Cozaar - PO DAILY@0800 ZITA Metoprolol Succinate 25 mg 08/12/19 13:40 Toprol Xl - PO BID ZITA Mirtazapine 30 mg 08/12/19 22:00 Remeron - PO HS ZITA Pramipexole Dihydrochloride 0.75 mg 08/12/19 22:00 Mirapex - PO BID ZITA Rosuvastatin Calcium 5 mg 08/12/19 22:00 Crestor - PO HS ZITA
--- NOTE | 2019-08-12 16:53 | PN ---
Progress Note (short form) - Note Progress Note: troponin rising will start heparin drip Problem List - Problems (1) Elevated troponin Code(s): R79.89 - OTHER SPECIFIED ABNORMAL FINDINGS OF BLOOD CHEMISTRY (2) UTI (urinary tract infection) Code(s): N39.0 - URINARY TRACT INFECTION, SITE NOT SPECIFIED (3) Afib Code(s): I48.91 - UNSPECIFIED ATRIAL FIBRILLATION Qualifiers: Atrial fibrillation type: paroxysmal Qualified Code(s): I48.0 - Paroxysmal atrial fibrillation (4) CHF (congestive heart failure) Code(s): I50.9 - HEART FAILURE, UNSPECIFIED (5) HLD (hyperlipidemia) Code(s): E78.5 - HYPERLIPIDEMIA, UNSPECIFIED
[2019-08-12] MEDS ORDERED: HEPARIN NA (PORCINE) 5,000 UNITS/ML 1ML VIAL IVPUSH ONE (17:04)
[2019-08-12] MEDS ORDERED: HEPARIN NA (PORCINE) 5,000 UNITS/ML 1ML VIAL IVPUSH PRN ×2 (17:04)
--- NOTE | 2019-08-12 18:06 | CONSULT ---
Consult Consult Specialty:: Nephrology Reason for Consultation:: CKD - History of Present Illness Chief Complaint: abdominal pain History of Present Illness: Pt is a 79 year old female with pmhx of htn, a-fib. ckd, hyponatremia, and colon cancer who presented to the ER for abdominal pain. She was found to have elevated troponins. She was admitted for treatment. She was found to have elevated creatinine and I was called to evaluate her. She denies dysuria or hematuria. 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 She denies nsaid use. 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) Cardio/Vascular: Yes: AFIB, HTN, Hyperlipdemia Gastrointestinal: Yes: Cancer (colon), Diverticulosis, Gastritis (h pylori) Hepatobiliary: Yes: Hepatitis B Renal/: Yes: Renal Calculi ...: No Infectious Disease: Yes: Tuberculosis (treated??) Endocrine: Yes: Hyperparathyroidism - Past Surgical History Past Surgical History: Yes: Cholecystectomy, Colectomy - Alcohol/Substance Use Hx Alcohol Use: Yes (WINE) - Smoking History Smoking history: Never smoked Have you smoked in the past 12 months: No Aproximately how many cigarettes per day: 0 If you are a former smoker, when did you quit?: 25 YEARS AGO Home Medications - Allergies Allergies/Adverse Reactions: Allergies Allergy/AdvReac Type Severity Reaction Status Date / Time iodine Allergy Severe "TURNED Verified 08/12/19 05:24 RED LIKE A LOBSTER" phenobarbital Allergy Mild Itching Verified 08/12/19 05:24 Iodinated Contrast Media Allergy Verified 08/12/19 05:24 [Iodinated Contrast Media - IV Dye] Sulfa (Sulfonamide Allergy Rash Verified 08/12/19 05:24 Antibiotics) prednisone AdvReac hallucinati Verified 08/12/19 05:24 ons - Home Medications Home Medications: Ambulatory Orders Allopurinol [Zyloprim -] 100 mg PO DAILY 08/15/13 Mirtazapine [Remeron -] 30 mg PO HS 07/10/15 Metoprolol Tartrate [Lopressor -] 12.5 mg PO BID 02/17/17 Pramipexole Di-HCl [Pramipexole ER] 0.75 mg PO BID 02/17/17 Rosuvastatin Calcium [Crestor] 5 mg PO HS 02/17/17 Apixaban [Eliquis] 2.5 mg PO BID 03/08/18 Furosemide [Lasix] 20 mg PO DAILY 03/08/18 Losartan Potassium 25 mg PO DAILY 07/19/18 Oxycodone HCl/Acetaminophen [Percocet 5-325 mg Tablet -] 1 - 2 tab PO Q6H #50 tab MDD 8 07/27/18 Family Medical History Family History: Denies Review of Systems - Review of Systems Constitutional: reports: Malaise Eyes: reports: No Symptoms HENT: reports: No Symptoms Neck: reports: No Symptoms Cardiovascular: reports: No Symptoms Respiratory: reports: No Symptoms Gastrointestinal: reports: Abdominal Pain Genitourinary: reports: No Symptoms Musculoskeletal: reports: No Symptoms Integumentary: reports: No Symptoms Neurological: reports: No Symptoms Endocrine: reports: No Symptoms Hematology/Lymphatic: reports: No Symptoms Psychiatric: reports: No Symptoms Physical Exam Vital Signs: Vital Signs Temperature 98.2 F 08/12/19 15:05 Pulse Rate 68 08/12/19 15:05 Respiratory Rate 18 08/12/19 15:05 Blood Pressure 153/71 08/12/19 15:05 O2 Sat by Pulse Oximetry (%) 97 08/12/19 15:05 Constitutional: Yes: Calm Eyes: Yes: Conjunctiva Clear HENT: Yes: Atraumatic Neck: Yes: Supple Cardiovascular: Yes: S1, S2 Respiratory: Yes: CTA Bilaterally Gastrointestinal: Yes: Soft Musculoskeletal: Yes: WNL Edema: No Neurological: Yes: Oriented Psychiatric: Yes: Oriented Labs: CBC, BMP 08/12/19 05:55 08/12/19 05:55 Laboratory Tests 02/24/17 02/25/17 03/22/18 07:00 07:00 14:00 WBC Creatinine 1.6 H 1.5 H 1.6 H Urine Protein Urine Blood Influenza A (Rapid) Influenza B (Rapid) 08/12/19 08/12/19 08/12/19 05:55 05:55 06:45 WBC 12.7 H Creatinine 1.6 H Urine Protein 1+ H Urine Blood 1+ H Influenza A (Rapid) Influenza B (Rapid) 08/12/19 09:08 WBC Creatinine Urine Protein Urine Blood Influenza A (Rapid) Negative Influenza B (Rapid) Negative Imaging - Results Chest X-ray: Report Reviewed Problem List - Problems (1) CKD (chronic kidney disease) Code(s): N18.9 - CHRONIC KIDNEY DISEASE, UNSPECIFIED (2) Elevated troponin Code(s): R79.89 - OTHER SPECIFIED ABNORMAL FINDINGS OF BLOOD CHEMISTRY Assessment/Plan Current Medications Generic Name Dose Route Start Last Admin Trade Name Freq PRN Reason Stop Dose Admin Apixaban 5 mg 08/12/19 22:00 Eliquis - PO BID [facility] Furosemide 20 mg 08/13/19 10:00 Lasix - PO DAILY [facility] Ceftriaxone Sodium 1 gm/ 50 mls @ 200 mls/hr 08/13/19 10:00 Dextrose IVPB DAILY [facility] Protocol Losartan Potassium 25 mg 08/13/19 08:00 Cozaar - PO DAILY@0800 [facility] Metoprolol Succinate 25 mg 08/12/19 13:40 Toprol Xl - PO BID [facility] Mirtazapine 30 mg 08/12/19 22:00 Remeron - PO HS [facility] Pramipexole Dihydrochloride 0.75 mg 08/12/19 22:00 Mirapex - PO BID [facility] Rosuvastatin Calcium 5 mg 08/12/19 22:00 Crestor - PO HS [facility] Impression 1. CKD 2. HTN 3. nstemi 4. hld 5. hx colon ca 6. a-fib 7. uti Plan - cont abx for uti - follow cultures - cardio on board - monitor enzymes - repeat ua once uti clears - avoid nephrotoxins
[2019-08-12 18:39] LABS: INR 1.07 (0.83-1.09); PROTHROMBIN TIME (PATIENT) 12.6 SEC (9.7-13.0)
[2019-08-12] MEDS: HEPARIN INFUSION - 25,000 UNITS/500 ML INFUS.BAG IV SCH (19:17)
[2019-08-12] MEDS ORDERED: PT OWN MED DRAWER 7, Y5N ONE (21:44)
[2019-08-12] MEDS: PRAMIPEXOLE DIHYDROCHLORIDE 0.5 MG TABLET PO SCH (21:58)
[2019-08-12] MEDS: ROSUVASTATIN CA 5 MG TABLET (FP) PO SCH (21:58)
[2019-08-12] MEDS: MIRTAZAPINE 30 MG TABLET (FP) PO SCH (21:58)
[2019-08-12] MEDS: metoPROLOL SUCCINATE 25 MG TAB.SR.24H (FP) PO SCH (21:58)
[2019-08-12] MEDS ORDERED: metoPROLOL SUCCINATE 25 MG TAB.SR.24H (FP) PO SCH (22:00)
[2019-08-12] MEDS ORDERED: APIXABAN 5 MG TABLET PO SCH (22:00)
--- NOTE | 2019-08-13 06:53 | PN ---
Progress Note, Physician Chief Complaint: UTI Elevated troponins CKD History of Present Illness: NAD Denies any SOB or chest pain started on Heparin drip for gradual rise in Troponins Repeat EKG-no changes Repeat labs pending this AM Cardiology to re-evaluate Started on IV abx for possible UTI UC pending - Current Medication List Current Medications: Active Medications Furosemide (Lasix -) 20 mg PO DAILY [facility] Heparin Sodium (Porcine) (Heparin -) 1,000 unit IVPUSH PRN PRN PRN Reason: Heparin Heparin Sodium (Porcine) (Heparin -) 5,000 unit IVPUSH PRN PRN PRN Reason: Heparin Ceftriaxone Sodium 1 gm/ (Dextrose) 50 mls @ 200 mls/hr IVPB DAILY [facility]; Protocol Heparin Sodium/Dextrose (Heparin Infusion -) 25,000 units in 500 mls @ 16 mls/ hr IV TITR [facility]; Protocol Last Admin: 08/12/19 19:17 Dose: 800 units/hr, 16 mls/hr Losartan Potassium (Cozaar -) 25 mg PO DAILY@0800 [facility] Metoprolol Succinate (Toprol Xl -) 25 mg PO BID [facility] Last Admin: 08/12/19 21:58 Dose: 25 mg Mirtazapine (Remeron -) 30 mg PO HS [facility] Last Admin: 08/12/19 21:58 Dose: 30 mg Pramipexole Dihydrochloride (Mirapex -) 0.75 mg PO BID [facility] Last Admin: 08/12/19 21:58 Dose: 0.75 mg Rosuvastatin Calcium (Crestor -) 5 mg PO HS [facility] Last Admin: 08/12/19 21:58 Dose: 5 mg - Objective Vital Signs: Vital Signs Temperature 97.7 F 08/13/19 06:00 Pulse Rate 66 08/13/19 06:00 Respiratory Rate 18 08/13/19 06:00 Blood Pressure 156/72 08/13/19 06:00 O2 Sat by Pulse Oximetry (%) 96 08/12/19 21:00 Constitutional: Yes: Well Nourished, No Distress, Calm Cardiovascular: Yes: Regular Rate and Rhythm Respiratory: Yes: Regular Gastrointestinal: Yes: Normal Bowel Sounds, Tenderness (diffuse, L>R) Genitourinary: Yes: Harper Present Musculoskeletal: Yes: Muscle Weakness Extremities: Yes: WNL Edema: No Peripheral Pulses WNL: Yes Neurological: Yes: Alert, Oriented Psychiatric: Yes: Alert, Oriented Labs: CBC, BMP 08/12/19 05:55 08/12/19 05:55 INR, PTT INR 1.07 (0.83-1.09) 08/12/19 17:30 Problem List - Problems (1) CKD (chronic kidney disease) Assessment/Plan: -Nephrology on board -Avoid nephrotoxins -monitor trend Problems reviewed: Yes Code(s): N18.9 - CHRONIC KIDNEY DISEASE, UNSPECIFIED (2) Elevated troponin Assessment/Plan: -Cardiology to re-evaluated -Repeat EKG yesterday no change -Tele monitoring -heparin drips -Repeat trops pending this AM -Echocardiogram Problems reviewed: Yes Code(s): R79.89 - OTHER SPECIFIED ABNORMAL FINDINGS OF BLOOD CHEMISTRY (3) UTI (urinary tract infection) Assessment/Plan: -UA reviewed -UC pending -Started on Rocephin IV -ID consult -+leukocytosis -Afebrile -CT abd/pelvis done, results pending Problems reviewed: Yes Code(s): N39.0 - URINARY TRACT INFECTION, SITE NOT SPECIFIED Qualifiers: Urinary tract infection type: site unspecified Hematuria presence: without hematuria Qualified Code(s): N39.0 - Urinary tract infection, site not specified (4) Afib Assessment/Plan: -chronic, rate controlled -on Heparin drips -On eliquis at home Problems reviewed: Yes Code(s): I48.91 - UNSPECIFIED ATRIAL FIBRILLATION Qualifiers: Atrial fibrillation type: paroxysmal Qualified Code(s): I48.0 - Paroxysmal atrial fibrillation Assessment/Plan see problem list
[2019-08-13 07:21] LABS: BASO % 0.4 % (0-2.0); EOS % 1.2 % (0-4.5); HEMATOCRIT 29.3 % (32.4-45.2); HEMOGLOBIN 9.6 GM/dL (10.7-15.3); LYMPH % 17.1 % (8-40); MCH 30.6 pg (25.7-33.7); MCHC 32.9 g/dl (32.0-36.0); MEAN PLT VOLUME 9.6 fl (7.5-11.1); MONO % 6.9 % (3.8-10.2); NEUT % 74.4 % (42.8-82.8); PLATELET COUNT 131 K/MM3 (134-434); RBC 3.15 M/mm3 (3.60-5.2); RDW 13.9 % (11.6-15.6); WHITE BLOOD COUNT 6.5 K/mm3 (4.0-10.0)
[2019-08-13 07:30] LABS: INR 1.12 (0.83-1.09); PROTHROMBIN TIME (PATIENT) 13.2 SEC (9.7-13.0)
[2019-08-13 07:33] LABS: ACTIVATED PTT 61.9 SECONDS (25.2-36.5)
[2019-08-13 07:51] LABS: ALBUMIN 3.2 g/dl (3.4-5.0); BILIRUBIN,TOTAL 0.5 mg/dL (0.2-1); BLOOD UREA NITROGEN 32.5 mg/dL (7-18); CALCIUM 9.3 mg/dL (8.5-10.1); CREATININE 1.3 mg/dL (0.55-1.3); MAGNESIUM 1.8 mg/dL (1.8-2.4); N-TERMINAL BNP 3582.1 pg/ml (5-450); PHOSPHOROUS 3.3 mg/dL (2.5-4.9); POTASSIUM 4.1 mmol/L (3.5-5.1); TOT PROT 5.9 g/dl (6.4-8.2)
[2019-08-13] MEDS: LOSARTAN POTASSIUM 25 MG TABLET PO SCH (08:34)
[2019-08-13] MEDS: ONDANSETRON 4 MG/2 ML VIAL IVPUSH PRN ×2 (09:32→17:23)
[2019-08-13] MEDS ORDERED: cefTRIAXone SODIUM 1 GM VIAL ONE (10:02)
[2019-08-13] MEDS ORDERED: DEXTROSE 5%-WATER - 50 ML IVPB ONE (10:02)
[2019-08-13] MEDS: CEFTRIAXONE 1 GM in DEXTROSE 5%-WATER - 50 ML IVPB SCH (10:23)
[2019-08-13] MEDS ORDERED: PT OWN MED DRAWER 7, Y5N ONE (10:43)
[2019-08-13] MEDS: FUROSEMIDE 20 MG TABLET (FP) PO SCH (10:44)
[2019-08-13] MEDS: metoPROLOL SUCCINATE 25 MG TAB.SR.24H (FP) PO SCH ×2 (10:44→22:37)
[2019-08-13] MEDS: PRAMIPEXOLE DIHYDROCHLORIDE 0.5 MG TABLET PO SCH ×2 (10:45→22:38)
[2019-08-13] MEDS ORDERED: ACETAMINOPHEN 325 MG TABLET (FP) PO PRN (13:25)
--- NOTE | 2019-08-13 13:34 | PN ---
Progress Note (short form) - Note Progress Note: ID consult dictated imp/reccd 79 yo female developed sudden onset difficulty urinating Thursday am, discomfort persisted, developed chills and bilateral flank discomfort and came to ED no chest pain vomiting once this am townsend placed in ER UA with pyuria awaiting ct scan offical reading (called radiology) ?passed stone urinary retention s/p cholycystectomy no recent UTIs, no recent antibiotics continue rocephin for UTI f/u ct scan results positive troponiins- management per cardiology Problem List - Problems (1) UTI (urinary tract infection) Code(s): N39.0 - URINARY TRACT INFECTION, SITE NOT SPECIFIED Qualifiers: Urinary tract infection type: site unspecified Hematuria presence: without hematuria Qualified Code(s): N39.0 - Urinary tract infection, site not specified (2) Elevated troponin Code(s): R79.89 - OTHER SPECIFIED ABNORMAL FINDINGS OF BLOOD CHEMISTRY (3) Urinary retention Code(s): R33.9 - RETENTION OF URINE, UNSPECIFIED
--- NOTE | 2019-08-13 15:08 | PN ---
Progress Note, Physician Chief Complaint: cardiology FU Telem NSR no pain, dyspnea - Current Medication List Current Medications: Active Medications Acetaminophen (Tylenol -) 650 mg PO Q6H PRN PRN Reason: PAIN LEVEL 6-10 Last Admin: 08/13/19 13:31 Dose: 650 mg Furosemide (Lasix -) 20 mg PO DAILY [facility] Last Admin: 08/13/19 10:44 Dose: 20 mg Heparin Sodium (Porcine) (Heparin -) 1,000 unit IVPUSH PRN PRN PRN Reason: Heparin Heparin Sodium (Porcine) (Heparin -) 5,000 unit IVPUSH PRN PRN PRN Reason: Heparin Ceftriaxone Sodium 1 gm/ (Dextrose) 50 mls @ 200 mls/hr IVPB DAILY [facility]; Protocol Last Admin: 08/13/19 10:23 Dose: 200 mls/hr Heparin Sodium/Dextrose (Heparin Infusion -) 25,000 units in 500 mls @ 16 mls/ hr IV TITR [facility]; Protocol Last Admin: 08/12/19 19:17 Dose: 800 units/hr, 16 mls/hr Losartan Potassium (Cozaar -) 25 mg PO DAILY@0800 [facility] Last Admin: 08/13/19 08:34 Dose: 25 mg Metoprolol Succinate (Toprol Xl -) 25 mg PO BID [facility] Last Admin: 08/13/19 10:44 Dose: 25 mg Mirtazapine (Remeron -) 30 mg PO HS [facility] Last Admin: 08/12/19 21:58 Dose: 30 mg Ondansetron HCl (Zofran Injection) 4 mg IVPUSH Q8H PRN PRN Reason: NAUSEA Last Admin: 08/13/19 09:32 Dose: 4 mg Pramipexole Dihydrochloride (Mirapex -) 0.75 mg PO BID [facility] Last Admin: 08/13/19 10:45 Dose: 0.75 mg Rosuvastatin Calcium (Crestor -) 5 mg PO HS [facility] Last Admin: 08/12/19 21:58 Dose: 5 mg - Objective Vital Signs: Vital Signs Temperature 98.7 F 08/13/19 14:00 Pulse Rate 68 08/13/19 14:00 Respiratory Rate 18 08/13/19 14:00 Blood Pressure 147/68 08/13/19 14:00 O2 Sat by Pulse Oximetry (%) 96 08/13/19 09:00 Constitutional: Yes: Well Nourished, No Distress Eyes: Yes: Conjunctiva Clear HENT: Yes: Atraumatic, Normocephalic Neck: Yes: Supple, Trachea Midline Cardiovascular: Yes: Regular Rate and Rhythm, S1, S2. No: JVD, Murmur Respiratory: Yes: Regular, CTA Bilaterally Gastrointestinal: Yes: Normal Bowel Sounds Edema: No Labs: CBC, BMP 08/13/19 05:50 08/13/19 05:50 INR, PTT INR 1.12 (0.83-1.09) H 08/13/19 05:50 Laboratory Tests 08/12/19 08/12/19 08/12/19 05:55 09:08 14:30 Troponin I 0.10 H 0.67 H* 1.24 H* 08/13/19 05:50 Troponin I 0.43 H Problem List - Problems (1) Elevated troponin Code(s): R79.89 - OTHER SPECIFIED ABNORMAL FINDINGS OF BLOOD CHEMISTRY Assessment/Plan 79 F with ho PAF and DVT admitted with urinary retention and abdominal pain. She has dynamic ECG changes and elevated TP without CPK elevation. No chest pain, dyspnea or heart failure. Her history suggests myocardial injury due to increased myocardial from infection and retention. -Agree with obtaining Echocardiogram. -Continue with IV heparin for 24 hours more. -Obtain lower extremity duplex to RO recurrent DVT. -Plavix 300mg today then 75mg qd. -ASA 81 mg qd.
[2019-08-13] MEDS ORDERED: CLOPIDOGREL BISULFATE 75 MG TABLET (FP) PO ONE (15:11)
--- NOTE | 2019-08-13 15:47 | PN ---
Progress Note, Physician History of Present Illness: Pt seen and examined at bedside. She is awake and alert. She denies chest pain. She denies dysuria. - Current Medication List Current Medications: Active Medications Acetaminophen (Tylenol -) 650 mg PO Q6H PRN PRN Reason: PAIN LEVEL 6-10 Last Admin: 08/13/19 13:31 Dose: 650 mg Aspirin (Ecotrin -) 81 mg PO DAILY [facility] Clopidogrel Bisulfate (Plavix -) 75 mg PO DAILY [facility] Furosemide (Lasix -) 20 mg PO DAILY [facility] Last Admin: 08/13/19 10:44 Dose: 20 mg Heparin Sodium (Porcine) (Heparin -) 1,000 unit IVPUSH PRN PRN PRN Reason: Heparin Heparin Sodium (Porcine) (Heparin -) 5,000 unit IVPUSH PRN PRN PRN Reason: Heparin Ceftriaxone Sodium 1 gm/ (Dextrose) 50 mls @ 200 mls/hr IVPB DAILY [facility]; Protocol Last Admin: 08/13/19 10:23 Dose: 200 mls/hr Heparin Sodium/Dextrose (Heparin Infusion -) 25,000 units in 500 mls @ 16 mls/ hr IV TITR [facility]; Protocol Last Admin: 08/12/19 19:17 Dose: 800 units/hr, 16 mls/hr Losartan Potassium (Cozaar -) 25 mg PO DAILY@0800 [facility] Last Admin: 08/13/19 08:34 Dose: 25 mg Metoprolol Succinate (Toprol Xl -) 25 mg PO BID [facility] Last Admin: 08/13/19 10:44 Dose: 25 mg Mirtazapine (Remeron -) 30 mg PO HS [facility] Last Admin: 08/12/19 21:58 Dose: 30 mg Ondansetron HCl (Zofran Injection) 4 mg IVPUSH Q8H PRN PRN Reason: NAUSEA Last Admin: 08/13/19 09:32 Dose: 4 mg Pramipexole Dihydrochloride (Mirapex -) 0.75 mg PO BID [facility] Last Admin: 08/13/19 10:45 Dose: 0.75 mg Rosuvastatin Calcium (Crestor -) 5 mg PO HS [facility] Last Admin: 08/12/19 21:58 Dose: 5 mg - Objective Vital Signs: Vital Signs Temperature 98.7 F 08/13/19 14:00 Pulse Rate 68 08/13/19 14:00 Respiratory Rate 18 08/13/19 14:00 Blood Pressure 147/68 08/13/19 14:00 O2 Sat by Pulse Oximetry (%) 96 08/13/19 09:00 Constitutional: Yes: Calm Eyes: Yes: Conjunctiva Clear HENT: Yes: Atraumatic Neck: Yes: Supple Cardiovascular: Yes: S1, S2 Respiratory: Yes: CTA Bilaterally Gastrointestinal: Yes: Soft Genitourinary: Yes: WNL Musculoskeletal: Yes: WNL Edema: No Neurological: Yes: Oriented Psychiatric: Yes: Oriented Labs: CBC, BMP 08/13/19 05:50 08/13/19 05:50 INR, PTT INR 1.12 (0.83-1.09) H 08/13/19 05:50 Problem List - Problems (1) CKD (chronic kidney disease) Code(s): N18.9 - CHRONIC KIDNEY DISEASE, UNSPECIFIED (2) Elevated troponin Code(s): R79.89 - OTHER SPECIFIED ABNORMAL FINDINGS OF BLOOD CHEMISTRY Assessment/Plan Current Medications Generic Name Dose Route Start Last Admin Trade Name Freq PRN Reason Stop Dose Admin Acetaminophen 650 mg 08/13/19 13:25 08/13/19 13:31 Tylenol - PO 650 mg Q6H PRN Administration PAIN LEVEL 6-10 Aspirin 81 mg 08/14/19 10:00 Ecotrin - PO DAILY [facility] Clopidogrel Bisulfate 75 mg 08/14/19 10:00 Plavix - PO DAILY [facility] Furosemide 20 mg 08/13/19 10:00 08/13/19 10:44 Lasix - PO 20 mg DAILY [facility] Administration Heparin Sodium (Porcine) 1,000 unit 08/12/19 17:04 Heparin - IVPUSH PRN PRN Heparin Heparin Sodium (Porcine) 5,000 unit 08/12/19 17:04 Heparin - IVPUSH PRN PRN Heparin Ceftriaxone Sodium 1 gm/ 50 mls @ 200 mls/hr 08/13/19 10:00 08/13/19 10:23 Dextrose IVPB 200 mls/hr DAILY [facility] Administration Protocol Heparin Sodium/Dextrose 25,000 units in 500 mls @ 16 mls/hr 08/12/19 17:15 19:17 Heparin Infusion - IV 800 units/hr TITR [facility] 16 mls/hr Administration Protocol 800 UNITS/HR Losartan Potassium 25 mg 08/13/19 08:00 08/13/19 08:34 Cozaar - PO 25 mg DAILY@0800 [facility] Administration Metoprolol Succinate 25 mg 08/12/19 13:40 08/13/19 10:44 Toprol Xl - PO 25 mg BID [facility] Administration Mirtazapine 30 mg 08/12/19 22:00 08/12/19 21:58 Remeron - PO 30 mg HS [facility] Administration Ondansetron HCl 4 mg 08/13/19 09:05 08/13/19 09:32 Zofran Injection IVPUSH 4 mg Q8H PRN Administration NAUSEA Pramipexole Dihydrochloride 0.75 mg 08/12/19 22:00 08/13/19 10:45 Mirapex - PO 0.75 mg BID [facility] Administration Rosuvastatin Calcium 5 mg 08/12/19 22:00 08/12/19 21:58 Crestor - PO 5 mg HS [facility] Administration Impression 1. CKD 2. HTN 3. nstemi 4. hld 5. hx colon ca 6. a-fib 7. uti Plan - renal function is improving - cardio input appreciated - abx for uti - follwo culturs - monitor enzymes - avoid nephrotoxins
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
[2019-08-13] MEDS: HEPARIN INFUSION - 25,000 UNITS/500 ML INFUS.BAG IV SCH ×2 (17:18→22:44)
[2019-08-13] MEDS: ROSUVASTATIN CA 5 MG TABLET (FP) PO SCH (22:38)
[2019-08-13] MEDS: MIRTAZAPINE 30 MG TABLET (FP) PO SCH (22:39)
[2019-08-14] MEDS: LOSARTAN POTASSIUM 25 MG TABLET PO SCH (08:44)
[2019-08-14 08:45] LABS: HEMATOCRIT 28.5 % (32.4-45.2); HEMOGLOBIN 9.4 GM/dL (10.7-15.3); MCH 30.7 pg (25.7-33.7); MCHC 33.1 g/dl (32.0-36.0); MEAN CELL VOLUME 92.6 fl (80-96); MEAN PLT VOLUME 9.1 fl (7.5-11.1); PLATELET COUNT 126 K/MM3 (134-434); RBC 3.08 M/mm3 (3.60-5.2); RDW 13.5 % (11.6-15.6); WHITE BLOOD COUNT 6.6 K/mm3 (4.0-10.0)
[2019-08-14] MEDS ORDERED: PT OWN MED DRAWER 7, Y5N ONE (09:42)
[2019-08-14] MEDS ORDERED: cefTRIAXone SODIUM 1 GM VIAL ONE (09:42)
[2019-08-14] MEDS ORDERED: DEXTROSE 5%-WATER - 50 ML IVPB ONE (09:42)
[2019-08-14] MEDS: ASPIRIN COATED 81 MG TABLET.EC PO SCH (09:48)
[2019-08-14] MEDS: CLOPIDOGREL BISULFATE 75 MG TABLET (FP) PO SCH (09:49)
[2019-08-14] MEDS: FUROSEMIDE 20 MG TABLET (FP) PO SCH (09:49)
[2019-08-14] MEDS: metoPROLOL SUCCINATE 25 MG TAB.SR.24H (FP) PO SCH ×2 (09:49→21:18)
[2019-08-14] MEDS: PRAMIPEXOLE DIHYDROCHLORIDE 0.5 MG TABLET PO SCH ×2 (09:50→21:19)
[2019-08-14] MEDS: CEFTRIAXONE 1 GM in DEXTROSE 5%-WATER - 50 ML IVPB SCH (09:51)
--- NOTE | 2019-08-14 12:32 | PN ---
Progress Note, Physician Chief Complaint: UTI Elevated troponins CKD History of Present Illness: NAD, no abdominal pain Denies any SOB or chest pain started on Heparin drip for gradual rise in Troponins Repeat EKG-no changes Seen by Cardiology Started on IV abx for possible UTI UC: Microbiology 08/12/19 06:45 Urine - Urine Clean Catch Urine Culture - Preliminary Klebsiella Pneumoniae Non Lactose Fermenting Gnb - Current Medication List Current Medications: Active Medications Acetaminophen (Tylenol -) 650 mg PO Q6H PRN PRN Reason: PAIN LEVEL 6-10 Last Admin: 08/13/19 13:31 Dose: 650 mg Aspirin (Ecotrin -) 81 mg PO DAILY [facility] Last Admin: 08/14/19 09:48 Dose: 81 mg Clopidogrel Bisulfate (Plavix -) 75 mg PO DAILY [facility] Last Admin: 08/14/19 09:49 Dose: 75 mg Furosemide (Lasix -) 20 mg PO DAILY [facility] Last Admin: 08/14/19 09:49 Dose: 20 mg Heparin Sodium (Porcine) (Heparin -) 1,000 unit IVPUSH PRN PRN PRN Reason: Heparin Heparin Sodium (Porcine) (Heparin -) 5,000 unit IVPUSH PRN PRN PRN Reason: Heparin Ceftriaxone Sodium 1 gm/ (Dextrose) 50 mls @ 200 mls/hr IVPB DAILY [facility]; Protocol Last Admin: 08/14/19 09:51 Dose: 200 mls/hr Heparin Sodium/Dextrose (Heparin Infusion -) 25,000 units in 500 mls @ 16 mls/ hr IV TITR [facility]; Protocol Last Titration: 08/14/19 10:46 Dose: 850 units/hr, 17 mls/hr Losartan Potassium (Cozaar -) 25 mg PO DAILY@0800 [facility] Last Admin: 08/14/19 08:44 Dose: 25 mg Metoprolol Succinate (Toprol Xl -) 25 mg PO BID [facility] Last Admin: 08/14/19 09:49 Dose: 25 mg Mirtazapine (Remeron -) 30 mg PO HS [facility] Last Admin: 08/13/19 22:39 Dose: 30 mg Ondansetron HCl (Zofran Injection) 4 mg IVPUSH Q8H PRN PRN Reason: NAUSEA Last Admin: 08/13/19 17:23 Dose: 4 mg Pramipexole Dihydrochloride (Mirapex -) 0.75 mg PO BID [facility] Last Admin: 08/14/19 09:50 Dose: 0.75 mg Rosuvastatin Calcium (Crestor -) 5 mg PO HS [facility] Last Admin: 08/13/19 22:38 Dose: 5 mg - Objective Vital Signs: Vital Signs Temperature 98.0 F 08/14/19 08:44 Pulse Rate 63 08/14/19 08:44 Respiratory Rate 18 08/14/19 08:44 Blood Pressure 161/73 08/14/19 08:44 O2 Sat by Pulse Oximetry (%) 96 08/13/19 21:00 Constitutional: Yes: Well Nourished, No Distress, Calm Cardiovascular: Yes: Regular Rate and Rhythm Respiratory: Yes: Regular Gastrointestinal: Yes: Normal Bowel Sounds, Soft, Tenderness (suprapubic) Genitourinary: Yes: Harper Present Musculoskeletal: Yes: WNL Extremities: Yes: WNL Edema: No Peripheral Pulses WNL: Yes Neurological: Yes: Alert, Oriented Psychiatric: Yes: Alert, Oriented Labs: CBC, BMP 08/14/19 08:26 08/13/19 05:50 INR, PTT INR 1.12 (0.83-1.09) H 08/13/19 05:50 Problem List - Problems (1) CKD (chronic kidney disease) Assessment/Plan: -Cr improving -Nephrology on board -Avoid nephrotoxins -monitor trend Problems reviewed: Yes Code(s): N18.9 - CHRONIC KIDNEY DISEASE, UNSPECIFIED (2) Elevated troponin Assessment/Plan: -Cardiology -Repeat EKG yesterday no change -Tele monitoring -heparin drip -Troponin already peaked, now trending down -Echocardiogram Problems reviewed: Yes Code(s): R79.89 - OTHER SPECIFIED ABNORMAL FINDINGS OF BLOOD CHEMISTRY (3) UTI (urinary tract infection) Assessment/Plan: -UA reviewed -UC: Microbiology 08/12/19 06:45 Urine - Urine Clean Catch Urine Culture - Preliminary Klebsiella Pneumoniae Non Lactose Fermenting Gnb -Rocephin IV -ID consult -+leukocytosis -Afebrile -CT abd/pelvis: Postsurgical changes in the colon, correlate with surgical history. There is no evidence of obstruction. Mild constipation. Diverticulosis with no evidence to suggest acute diverticulitis. Right nephrolithiasis with pelvocaliectasis and mild dilatation right ureter, recently passed stone cannot be excluded. Problems reviewed: Yes Code(s): N39.0 - URINARY TRACT INFECTION, SITE NOT SPECIFIED Qualifiers: Urinary tract infection type: site unspecified Hematuria presence: without hematuria Qualified Code(s): N39.0 - Urinary tract infection, site not specified (4) Afib Assessment/Plan: -chronic, rate controlled -on Heparin drip -On eliquis at home Problems reviewed: Yes Code(s): I48.91 - UNSPECIFIED ATRIAL FIBRILLATION Qualifiers: Atrial fibrillation type: paroxysmal Qualified Code(s): I48.0 - Paroxysmal atrial fibrillation
--- NOTE | 2019-08-14 12:36 | CON.GU ---
Consult Consult Specialty:: Reason for Consultation:: renal calculus - History of Present Illness History of Present Illness: 79F with pmh of DVT of both lower extremities, HTN, Afib, colon cancer s/p colon resection, presenting with severe abdominal pain after attempting to urinate around 4am. she said she woke up from her sleep to go to bathroom was unable to urinate, then came back to bed and had a little water and then felt the urge to urinate again but could not,then she developed this suprapubic and flank pain and then she called the ambulance she was in perfect health yesterday no fever no chills no chest pain. cons req. in ER labs wbc 12.7 troponin 2 set 0.1-0.6 in ER she got keflex and rocephin IV History Source: Patient, Medical Record - Past Medical History BRIDGE TENDER: Yes: Other (spinal abscess) Cardio/Vascular: Yes: AFIB, HTN, Hyperlipdemia Gastrointestinal: Yes: Cancer (colon), Diverticulosis, Gastritis (h pylori) Hepatobiliary: Yes: Hepatitis B Renal/: Yes: Renal Calculi ...: No Infectious Disease: Yes: Tuberculosis (treated??) Endocrine: Yes: Hyperparathyroidism - Past Surgical History Past Surgical History: Yes: Cholecystectomy, Colectomy - Alcohol/Substance Use Hx Alcohol Use: Yes (WINE) - Smoking History Smoking history: Never smoked Have you smoked in the past 12 months: No Aproximately how many cigarettes per day: 0 If you are a former smoker, when did you quit?: 25 YEARS AGO Home Medications - Allergies Allergies/Adverse Reactions: Allergies Allergy/AdvReac Type Severity Reaction Status Date / Time iodine Allergy Severe "TURNED Verified 08/12/19 05:24 RED LIKE A LOBSTER" phenobarbital Allergy Mild Itching Verified 08/12/19 05:24 Iodinated Contrast Media Allergy Verified 08/12/19 05:24 [Iodinated Contrast Media - IV Dye] Sulfa (Sulfonamide Allergy Rash Verified 08/12/19 05:24 Antibiotics) prednisone AdvReac hallucinati Verified 08/12/19 05:24 ons - Home Medications Home Medications: Ambulatory Orders Allopurinol [Zyloprim -] 100 mg PO DAILY 08/15/13 Mirtazapine [Remeron -] 30 mg PO HS 07/10/15 Metoprolol Tartrate [Lopressor -] 12.5 mg PO BID 02/17/17 Pramipexole Di-HCl [Pramipexole ER] 0.75 mg PO BID 02/17/17 Rosuvastatin Calcium [Crestor] 5 mg PO HS 02/17/17 Apixaban [Eliquis] 2.5 mg PO BID 03/08/18 Furosemide [Lasix] 20 mg PO DAILY 03/08/18 Losartan Potassium 25 mg PO DAILY 07/19/18 Oxycodone HCl/Acetaminophen [Percocet 5-325 mg Tablet -] 1 - 2 tab PO Q6H #50 tab MDD 8 07/27/18 Review of Systems - Review of Systems Genitourinary: reports: Burning, Flank Pain, Pain Physical Exam- Vital Signs: Vital Signs Temperature 98.0 F 08/14/19 08:44 Pulse Rate 63 08/14/19 08:44 Respiratory Rate 18 08/14/19 08:44 Blood Pressure 161/73 08/14/19 08:44 O2 Sat by Pulse Oximetry (%) 96 08/13/19 21:00 Gastrointestinal: Yes: WNL, Normal Bowel Sounds, Soft Renal/: No: CVA Tenderness - Right Labs: CBC, BMP 08/14/19 08:26 08/13/19 05:50 Imaging - Results Cat Scan: Report Reviewed, Image Reviewed Problem List - Problems (1) Hydronephrosis Assessment/Plan: prob d/t passed stone, f/u renal u/s in my office Code(s): N13.30 - UNSPECIFIED HYDRONEPHROSIS (2) UTI (urinary tract infection) Assessment/Plan: cont iv abxs, change to po Code(s): N39.0 - URINARY TRACT INFECTION, SITE NOT SPECIFIED Qualifiers: Urinary tract infection type: site unspecified Hematuria presence: without hematuria Qualified Code(s): N39.0 - Urinary tract infection, site not specified (3) Renal calculus Assessment/Plan: f/u for ESWL R after cardiology clearance and uti resolved Code(s): N20.0 - CALCULUS OF KIDNEY (4) Urinary retention Assessment/Plan: remove townsend for trial of void Code(s): R33.9 - RETENTION OF URINE, UNSPECIFIED
--- NOTE | 2019-08-14 13:01 | PN ---
Progress Note (short form) - Note Progress Note: still some nausea no vomiting Vital Signs Period Temp Pulse Resp BP Sys/Blackman Pulse Ox Last 24 Hr 97.5 F-98.7 F 55-68 18-18 130-161/57-78 96 cor-rrr lungs clear abd soft,nt ext no edema +townsend CBC, BMP 08/14/19 08:26 Microbiology 08/12/19 06:45 Urine - Urine Clean Catch Urine Culture - Preliminary Klebsiella Pneumoniae Non Lactose Fermenting Gnb a/p nephrolithiasis- ?passed stone UTI s/p cholycystectomy continue rocephin d/c townsend positive troponins- f/u with cardiology
[2019-08-14 13:34] LABS: ALBUMIN 3.2 g/dl (3.4-5.0); BILIRUBIN,TOTAL 0.5 mg/dL (0.2-1); BLOOD UREA NITROGEN 29.6 mg/dL (7-18); CALCIUM 9.3 mg/dL (8.5-10.1); CREATININE 1.4 mg/dL (0.55-1.3); POTASSIUM 4.1 mmol/L (3.5-5.1); TOT PROT 5.8 g/dl (6.4-8.2)
[2019-08-14] MEDS: POLYETHYLENE GLYCOL 3350 119 GM BTL PO SCH (13:51)
--- NOTE | 2019-08-14 15:36 | PN ---
Progress Note, Physician History of Present Illness: Pt seen and examined at bedside. She is awake and alert. She denies chest pain today. - Current Medication List Current Medications: Active Medications Acetaminophen (Tylenol -) 650 mg PO Q6H PRN PRN Reason: PAIN LEVEL 6-10 Last Admin: 08/13/19 13:31 Dose: 650 mg Aspirin (Ecotrin -) 81 mg PO DAILY [facility] Last Admin: 08/14/19 09:48 Dose: 81 mg Clopidogrel Bisulfate (Plavix -) 75 mg PO DAILY [facility] Last Admin: 08/14/19 09:49 Dose: 75 mg Furosemide (Lasix -) 20 mg PO DAILY [facility] Last Admin: 08/14/19 09:49 Dose: 20 mg Heparin Sodium (Porcine) (Heparin -) 1,000 unit IVPUSH PRN PRN PRN Reason: Heparin Heparin Sodium (Porcine) (Heparin -) 5,000 unit IVPUSH PRN PRN PRN Reason: Heparin Ceftriaxone Sodium 1 gm/ (Dextrose) 50 mls @ 200 mls/hr IVPB DAILY [facility]; Protocol Last Admin: 08/14/19 09:51 Dose: 200 mls/hr Heparin Sodium/Dextrose (Heparin Infusion -) 25,000 units in 500 mls @ 16 mls/ hr IV TITR [facility]; Protocol Last Titration: 08/14/19 10:46 Dose: 850 units/hr, 17 mls/hr Losartan Potassium (Cozaar -) 25 mg PO DAILY@0800 [facility] Last Admin: 08/14/19 08:44 Dose: 25 mg Metoprolol Succinate (Toprol Xl -) 25 mg PO BID [facility] Last Admin: 08/14/19 09:49 Dose: 25 mg Mirtazapine (Remeron -) 30 mg PO HS [facility] Last Admin: 08/13/19 22:39 Dose: 30 mg Ondansetron HCl (Zofran Injection) 4 mg IVPUSH Q8H PRN PRN Reason: NAUSEA Last Admin: 08/13/19 17:23 Dose: 4 mg Polyethylene Glycol (Miralax (For Daily Use) -) 17 gm PO DAILY [facility] Last Admin: 08/14/19 13:51 Dose: 17 gm Pramipexole Dihydrochloride (Mirapex -) 0.75 mg PO BID [facility] Last Admin: 08/14/19 09:50 Dose: 0.75 mg Rosuvastatin Calcium (Crestor -) 5 mg PO HS [facility] Last Admin: 08/13/19 22:38 Dose: 5 mg - Objective Vital Signs: Vital Signs Temperature 98.0 F 08/14/19 08:44 Pulse Rate 63 08/14/19 08:44 Respiratory Rate 18 08/14/19 08:44 Blood Pressure 161/73 08/14/19 08:44 O2 Sat by Pulse Oximetry (%) 96 08/14/19 09:00 Constitutional: Yes: Calm Eyes: Yes: Conjunctiva Clear HENT: Yes: Atraumatic Neck: Yes: Supple Cardiovascular: Yes: S1, S2 Respiratory: Yes: CTA Bilaterally Gastrointestinal: Yes: Soft Genitourinary: Yes: Harper Present Musculoskeletal: Yes: WNL Edema: No Neurological: Yes: Oriented Psychiatric: Yes: Oriented Labs: CBC, BMP 08/14/19 08:26 08/14/19 08:26 INR, PTT INR 1.12 (0.83-1.09) H 08/13/19 05:50 Problem List - Problems (1) CKD (chronic kidney disease) Code(s): N18.9 - CHRONIC KIDNEY DISEASE, UNSPECIFIED (2) Elevated troponin Code(s): R79.89 - OTHER SPECIFIED ABNORMAL FINDINGS OF BLOOD CHEMISTRY Assessment/Plan Current Medications Generic Name Dose Route Start Last Admin Trade Name Manq PRN Reason Stop Dose Admin Acetaminophen 650 mg 08/13/19 13:25 08/13/19 13:31 Tylenol - PO 650 mg Q6H PRN Administration PAIN LEVEL 6-10 Aspirin 81 mg 08/14/19 10:00 08/14/19 09:48 Ecotrin - PO 81 mg DAILY [facility] Administration Clopidogrel Bisulfate 75 mg 08/14/19 10:00 08/14/19 09:49 Plavix - PO 75 mg DAILY [facility] Administration Furosemide 20 mg 08/13/19 10:00 08/14/19 09:49 Lasix - PO 20 mg DAILY [facility] Administration Heparin Sodium (Porcine) 1,000 unit 08/12/19 17:04 Heparin - IVPUSH PRN PRN Heparin Heparin Sodium (Porcine) 5,000 unit 08/12/19 17:04 Heparin - IVPUSH PRN PRN Heparin Ceftriaxone Sodium 1 gm/ 50 mls @ 200 mls/hr 08/13/19 10:00 08/14/19 09:51 Dextrose IVPB 200 mls/hr DAILY [facility] Administration Protocol Heparin Sodium/Dextrose 25,000 units in 500 mls @ 16 mls/hr 08/12/19 17:15 10:46 Heparin Infusion - IV 850 units/hr TITR [facility] 17 mls/hr Titration Protocol 800 UNITS/HR Losartan Potassium 25 mg 08/13/19 08:00 08/14/19 08:44 Cozaar - PO 25 mg DAILY@0800 [facility] Administration Metoprolol Succinate 25 mg 08/12/19 13:40 08/14/19 09:49 Toprol Xl - PO 25 mg BID [facility] Administration Mirtazapine 30 mg 08/12/19 22:00 08/13/19 22:39 Remeron - PO 30 mg HS [facility] Administration Ondansetron HCl 4 mg 08/13/19 09:05 08/13/19 17:23 Zofran Injection IVPUSH 4 mg Q8H PRN Administration NAUSEA Polyethylene Glycol 17 gm 08/14/19 12:45 08/14/19 13:51 Miralax (For Daily Use) - PO 17 gm DAILY [facility] Administration Pramipexole Dihydrochloride 0.75 mg 08/12/19 22:00 08/14/19 09:50 Mirapex - PO 0.75 mg BID [facility] Administration Rosuvastatin Calcium 5 mg 08/12/19 22:00 08/13/19 22:38 Crestor - PO 5 mg HS [facility] Administration Impression 1. CKD 2. HTN 3. nstemi 4. hld 5. hx colon ca 6. a-fib 7. uti Plan - cont to monitor renal function - urology input appreciated - voiding trial - abx for uti - follow culturs - avoid nephrotoxins
[2019-08-14] MEDS ORDERED: LOSARTAN POTASSIUM 25 MG TABLET PO ONE (15:39)
--- NOTE | 2019-08-14 20:19 | EKG ---
Test Reason : Blood Pressure : / mmHG Vent. Rate : 063 BPM Atrial Rate : 063 BPM P-R Int : 162 ms QRS Dur : 086 ms QT Int : 448 ms P-R-T Axes : 055 -18 -33 degrees QTc Int : 458 ms SINUS RHYTHM WITH PREMATURE SUPRAVENTRICULAR COMPLEXES MINIMAL VOLTAGE CRITERIA FOR LVH, MAY BE NORMAL VARIANT NONSPECIFIC T WAVE ABNORMALITY BORDERLINE ECG WHEN COMPARED WITH ECG OF 12-AUG-2019 10:14, MINIMAL CRITERIA FOR SEPTAL INFARCT ARE NO LONGER PRESENT Confirmed by ALIZE TELLES MD ([id number]) on 08/14/2019 8:19:12 PM Referred By: BRENDA REZA Confirmed By:ALIZE TELLES MD
[2019-08-14] MEDS: MIRTAZAPINE 30 MG TABLET (FP) PO SCH (21:18)
[2019-08-14] MEDS: ROSUVASTATIN CA 5 MG TABLET (FP) PO SCH (21:18)
[2019-08-15] MEDS: HEPARIN INFUSION - 25,000 UNITS/500 ML INFUS.BAG IV SCH ×2 (01:30→01:31)
[2019-08-15 07:46] LABS: BASO % 0.6 % (0-2.0); EOS % 3.3 % (0-4.5); HEMATOCRIT 28.4 % (32.4-45.2); HEMOGLOBIN 9.7 GM/dL (10.7-15.3); LYMPH % 18.5 % (8-40); MCH 31.1 pg (25.7-33.7); MCHC 34.1 g/dl (32.0-36.0); MEAN CELL VOLUME 91.4 fl (80-96); MEAN PLT VOLUME 9.7 fl (7.5-11.1); MONO % 7.9 % (3.8-10.2); NEUT % 69.7 % (42.8-82.8); PLATELET COUNT 137 K/MM3 (134-434); RDW 13.2 % (11.6-15.6); WHITE BLOOD COUNT 6.5 K/mm3 (4.0-10.0)
[2019-08-15] MEDS: LOSARTAN POTASSIUM 25 MG TABLET PO SCH (08:27)
[2019-08-15] MEDS ORDERED: DEXTROSE 5%-WATER - 50 ML IVPB ONE (09:12)
[2019-08-15] MEDS ORDERED: cefTRIAXone SODIUM 1 GM VIAL ONE (09:12)
[2019-08-15] MEDS ORDERED: PT OWN MED DRAWER 7, Y5N ONE ×2 (09:12→21:06)
[2019-08-15] MEDS: FUROSEMIDE 20 MG TABLET (FP) PO SCH (09:21)
[2019-08-15] MEDS: ASPIRIN COATED 81 MG TABLET.EC PO SCH (09:21)
[2019-08-15] MEDS: CEFTRIAXONE 1 GM in DEXTROSE 5%-WATER - 50 ML IVPB SCH (09:22)
[2019-08-15] MEDS: metoPROLOL SUCCINATE 25 MG TAB.SR.24H (FP) PO SCH ×2 (09:22→21:12)
[2019-08-15] MEDS: CLOPIDOGREL BISULFATE 75 MG TABLET (FP) PO SCH (09:22)
[2019-08-15] MEDS: PRAMIPEXOLE DIHYDROCHLORIDE 0.5 MG TABLET PO SCH ×2 (09:23→21:13)
[2019-08-15] MEDS: POLYETHYLENE GLYCOL 3350 119 GM BTL PO SCH (09:26)
[2019-08-15 10:26] LABS: ALBUMIN 3.2 g/dl (3.4-5.0); BILIRUBIN,TOTAL 0.4 mg/dL (0.2-1); BLOOD UREA NITROGEN 29.1 mg/dL (7-18); CALCIUM 9.4 mg/dL (8.5-10.1); CREATININE 1.4 mg/dL (0.55-1.3); TOT PROT 5.9 g/dl (6.4-8.2)
--- NOTE | 2019-08-15 11:47 | PN ---
Progress Note, Physician History of Present Illness: Pt seen and examined at bedside. She is awake and alert. She denies hematuria or dysuria. - Current Medication List Current Medications: Active Medications Acetaminophen (Tylenol -) 650 mg PO Q6H PRN PRN Reason: PAIN LEVEL 6-10 Last Admin: 08/13/19 13:31 Dose: 650 mg Aspirin (Ecotrin -) 81 mg PO DAILY [facility] Last Admin: 08/15/19 09:21 Dose: 81 mg Clopidogrel Bisulfate (Plavix -) 75 mg PO DAILY [facility] Last Admin: 08/15/19 09:22 Dose: 75 mg Furosemide (Lasix -) 20 mg PO DAILY [facility] Last Admin: 08/15/19 09:21 Dose: 20 mg Heparin Sodium (Porcine) (Heparin -) 1,000 unit IVPUSH PRN PRN PRN Reason: Heparin Heparin Sodium (Porcine) (Heparin -) 5,000 unit IVPUSH PRN PRN PRN Reason: Heparin Ceftriaxone Sodium 1 gm/ (Dextrose) 50 mls @ 200 mls/hr IVPB DAILY [facility]; Protocol Last Admin: 08/15/19 09:22 Dose: 200 mls/hr Heparin Sodium/Dextrose (Heparin Infusion -) 25,000 units in 500 mls @ 16 mls/ hr IV TITR [facility]; Protocol Last Admin: 08/15/19 01:31 Dose: 850 units/hr, 17 mls/hr Losartan Potassium (Cozaar -) 50 mg PO DAILY@0800 [facility] Last Admin: 08/15/19 08:27 Dose: 50 mg Metoprolol Succinate (Toprol Xl -) 25 mg PO BID [facility] Last Admin: 08/15/19 09:22 Dose: 25 mg Mirtazapine (Remeron -) 30 mg PO HS [facility] Last Admin: 08/14/19 21:18 Dose: 30 mg Ondansetron HCl (Zofran Injection) 4 mg IVPUSH Q8H PRN PRN Reason: NAUSEA Last Admin: 08/13/19 17:23 Dose: 4 mg Polyethylene Glycol (Miralax (For Daily Use) -) 17 gm PO DAILY [facility] Last Admin: 08/15/19 09:26 Dose: 17 gm Pramipexole Dihydrochloride (Mirapex -) 0.75 mg PO BID [facility] Last Admin: 08/15/19 09:23 Dose: 0.75 mg Rosuvastatin Calcium (Crestor -) 5 mg PO HS [facility] Last Admin: 08/14/19 21:18 Dose: 5 mg - Objective Vital Signs: Vital Signs Temperature 97.8 F 08/15/19 08:26 Pulse Rate 58 L 08/15/19 08:26 Respiratory Rate 18 08/15/19 08:26 Blood Pressure 151/77 08/15/19 08:26 O2 Sat by Pulse Oximetry (%) 94 L 08/14/19 21:00 Constitutional: Yes: Calm Eyes: Yes: Conjunctiva Clear HENT: Yes: Atraumatic Cardiovascular: Yes: S1, S2 Respiratory: Yes: CTA Bilaterally Gastrointestinal: Yes: Normal Bowel Sounds, Soft Genitourinary: Yes: Incontinence Musculoskeletal: Yes: WNL Edema: No Neurological: Yes: Oriented Psychiatric: Yes: Oriented Labs: CBC, BMP 08/15/19 06:00 08/15/19 06:00 INR, PTT INR 1.12 (0.83-1.09) H 08/13/19 05:50 Problem List - Problems (1) CKD (chronic kidney disease) Code(s): N18.9 - CHRONIC KIDNEY DISEASE, UNSPECIFIED (2) Elevated troponin Code(s): R79.89 - OTHER SPECIFIED ABNORMAL FINDINGS OF BLOOD CHEMISTRY Assessment/Plan Current Medications Generic Name Dose Route Start Last Admin Trade Name Manq PRN Reason Stop Dose Admin Acetaminophen 650 mg 08/13/19 13:25 08/13/19 13:31 Tylenol - PO 650 mg Q6H PRN Administration PAIN LEVEL 6-10 Aspirin 81 mg 08/14/19 10:00 08/15/19 09:21 Ecotrin - PO 81 mg DAILY [facility] Administration Clopidogrel Bisulfate 75 mg 08/14/19 10:00 08/15/19 09:22 Plavix - PO 75 mg DAILY [facility] Administration Furosemide 20 mg 08/13/19 10:00 08/15/19 09:21 Lasix - PO 20 mg DAILY [facility] Administration Heparin Sodium (Porcine) 1,000 unit 08/12/19 17:04 Heparin - IVPUSH PRN PRN Heparin Heparin Sodium (Porcine) 5,000 unit 08/12/19 17:04 Heparin - IVPUSH PRN PRN Heparin Ceftriaxone Sodium 1 gm/ 50 mls @ 200 mls/hr 08/13/19 10:00 08/15/19 09:22 Dextrose IVPB 200 mls/hr DAILY [facility] Administration Protocol Heparin Sodium/Dextrose 25,000 units in 500 mls @ 16 mls/hr 08/12/19 17:15 01:31 Heparin Infusion - IV 850 units/hr TITR [facility] 17 mls/hr Administration Protocol 800 UNITS/HR Losartan Potassium 50 mg 08/14/19 15:40 08/15/19 08:27 Cozaar - PO 50 mg DAILY@0800 [facility] Administration Metoprolol Succinate 25 mg 08/12/19 13:40 08/15/19 09:22 Toprol Xl - PO 25 mg BID [facility] Administration Mirtazapine 30 mg 08/12/19 22:00 08/14/19 21:18 Remeron - PO 30 mg HS [facility] Administration Ondansetron HCl 4 mg 08/13/19 09:05 08/13/19 17:23 Zofran Injection IVPUSH 4 mg Q8H PRN Administration NAUSEA Polyethylene Glycol 17 gm 08/14/19 12:45 08/15/19 09:26 Miralax (For Daily Use) - PO 17 gm DAILY [facility] Administration Pramipexole Dihydrochloride 0.75 mg 08/12/19 22:00 08/15/19 09:23 Mirapex - PO 0.75 mg BID [facility] Administration Rosuvastatin Calcium 5 mg 08/12/19 22:00 08/14/19 21:18 Crestor - PO 5 mg HS [facility] Administration Impression 1. CKD 2. HTN 3. nstemi 4. hld 5. hx colon ca 6. a-fib 7. uti Plan - renal function stable - sodium stable - cont cardiac workup - josue maria - avoid nephrotoxins
--- NOTE | 2019-08-15 14:59 | ECHO ---
Name: ARLETH CARCAMO Exam:Adult Echocardiogram Study Date: 08/15/2019 11:32 AM Age: 79 yrs Height: 64 in Weight: 135 lb BSA: 1.7 m2 MMode/2D Measurements & Calculations IVSd: 0.80 cm Ao root diam: 3.0 cm LVIDd: 4.6 cm LA dimension: 2.6 cm LVIDs: 3.3 cm LVPWd: 0.96 cm LVPWs: 1.3 cm EDV(Teich): 95.2 ml ESV(Teich): 43.6 ml LVOT diam: 2.0 cm LAV (MOD-bp): 51.0 ml RV S Amrit: 12.7 cm/sec Doppler Measurements & Calculations MV E max amrit: 45.9 cm/sec Ao V2 max: 149.8 cm/sec MV A max amrit: 116.5 cm/sec Ao max P.0 mmHg MV E/A: 0.39 MAR(V,D): 1.8 cm2 MV dec time: 0.25 sec LV V1 max P.0 mmHg PA V2 max: 109.9 cm/sec LV V1 max: 86.4 cm/sec PA max P.8 mmHg PI end-d amrit: 114.7 cm/sec Med Peak E' Amrit: 4.0 cm/sec Med E/e': 11.5 Lat Peak E' Amrit: 4.1 cm/sec Lat E/e': 11.2 Procedure A complete two-dimensional transthoracic echocardiogram was performed (2D, M-mode, Doppler and color flow Doppler). Left Ventricle The left ventricle is normal in size. Left ventricular systolic function is normal. Ejection Fraction = 60- 65%. Grade I diastolic dysfunction, (abnormal relaxation pattern). Ratio E/E'= 11. No regional wall m otion abnormalities noted. Right Ventricle The right ventricle is normal size. The right ventricular systolic function is normal. RV systolic TD I is 13 cm/s. Atria The left atrial size is normal. LA volume index is 30 ml/m2. Right atrial size is normal. Mitral Valve There is mild to moderate mitral annular calcification. There is mild to moderate mitral valve thicke oksana. There is mild mitral regurgitation. Tricuspid Valve The tricuspid valve is normal in structure and function. No tricuspid regurgitation. Aortic Valve There is mild aortic sclerosis.;. No aortic regurgitation is present. Pulmonic Valve The pulmonic valve is not well visualized. Mild pulmonic valvular regurgitation. Great Vessels The aortic root is normal size. Pericardium/Pleura There is no pericardial effusion. Interpretation Summary The left ventricle is normal in size. Left ventricular systolic function is normal. No regional wall motion abnormalities noted. Ejection Fraction = 60-65%. Grade I diastolic dysfunction, (abnormal relaxation pattern). Ratio E/E'= 11 The right ventricular systolic function is normal. The left atrial size is normal. Right atrial size is normal. There is mild to moderate mitral annular calcification. There is mild to moderate mitral valve thickening. There is mild mitral regurgitation. There is mild aortic sclerosis. Mild pulmonic valvular regurgitation. There is no pericardial effusion. Jason Bennett MD 08/15/2019 02:59 PM
--- NOTE | 2019-08-15 15:22 | PN ---
Progress Note (short form) - Note Progress Note: oob in chair townsend out no difficulty fvoiding no nausea no flank pain Vital Signs Period Temp Pulse Resp BP Sys/Blackman Pulse Ox Last 24 Hr 97.5 F-98.3 F 57-66 18-18 143-178/71-91 94-96 cor-rrr lungs clear abd soft,nt no cvat ext no edema CBC, BMP 08/15/19 06:00 08/15/19 06:00 Microbiology 08/13/19 13:55 Blood - Peripheral Venous Blood Culture - Preliminary NO GROWTH OBTAINED AFTER 48 HOURS, INCUBATION TO CONTINUE FOR 3 DAYS. 08/13/19 13:50 Blood - Peripheral Venous Blood Culture - Preliminary NO GROWTH OBTAINED AFTER 48 HOURS, INCUBATION TO CONTINUE FOR 3 DAYS. 08/12/19 06:45 Urine - Urine Clean Catch Urine Culture - Final Klebsiella Pneumoniae a/p nephrolithiasis- ?passed stone klebsiella UTI-day #4 antiibotics, can switch to po keflex to treat another 10 days s/p cholycystectomy continue rocephin d/c townsend positive troponins- f/u with cardiology
--- NOTE | 2019-08-15 15:54 | PN ---
Progress Note, Physician History of Present Illness: seen and examined today in nad. states she is feeling well. denies any chest pain or sob. no new complaints. - Current Medication List Current Medications: Active Medications Acetaminophen (Tylenol -) 650 mg PO Q6H PRN PRN Reason: PAIN LEVEL 6-10 Last Admin: 08/13/19 13:31 Dose: 650 mg Aspirin (Ecotrin -) 81 mg PO DAILY [facility] Last Admin: 08/15/19 09:21 Dose: 81 mg Cephalexin HCl (Keflex -) 500 mg PO BID [facility] Clopidogrel Bisulfate (Plavix -) 75 mg PO DAILY [facility] Last Admin: 08/15/19 09:22 Dose: 75 mg Furosemide (Lasix -) 20 mg PO DAILY [facility] Last Admin: 08/15/19 09:21 Dose: 20 mg Heparin Sodium (Porcine) (Heparin -) 1,000 unit IVPUSH PRN PRN PRN Reason: Heparin Losartan Potassium (Cozaar -) 50 mg PO DAILY@0800 [facility] Last Admin: 08/15/19 08:27 Dose: 50 mg Metoprolol Succinate (Toprol Xl -) 25 mg PO BID [facility] Last Admin: 08/15/19 09:22 Dose: 25 mg Mirtazapine (Remeron -) 30 mg PO HS [facility] Last Admin: 08/14/19 21:18 Dose: 30 mg Ondansetron HCl (Zofran Injection) 4 mg IVPUSH Q8H PRN PRN Reason: NAUSEA Last Admin: 08/13/19 17:23 Dose: 4 mg Polyethylene Glycol (Miralax (For Daily Use) -) 17 gm PO DAILY [facility] Last Admin: 08/15/19 09:26 Dose: 17 gm Pramipexole Dihydrochloride (Mirapex -) 0.75 mg PO BID [facility] Last Admin: 08/15/19 09:23 Dose: 0.75 mg Rosuvastatin Calcium (Crestor -) 5 mg PO HS [facility] Last Admin: 08/14/19 21:18 Dose: 5 mg - Objective Vital Signs: Vital Signs Temperature 98.3 F 08/15/19 13:50 Pulse Rate 66 08/15/19 13:50 Respiratory Rate 18 08/15/19 13:50 Blood Pressure 145/87 08/15/19 13:50 O2 Sat by Pulse Oximetry (%) 96 08/15/19 09:00 Constitutional: Yes: No Distress, Calm Eyes: Yes: Conjunctiva Clear, EOM Intact, PERRL HENT: Yes: Atraumatic, Normocephalic Neck: Yes: Supple, Trachea Midline Cardiovascular: Yes: Regular Rate and Rhythm, S1, S2. No: Bradycardia, Tachycardia, Pulse Irregular, Bruit, JVD, Gallop, Murmur, Rub, S3, S4, Varicosities Respiratory: Yes: Regular, CTA Bilaterally. No: Rales, Rhonchi, SOB, Wheezes Gastrointestinal: Yes: Normal Bowel Sounds, Soft. No: Distention, Tenderness Musculoskeletal: Yes: WNL Extremities: Yes: WNL Edema: No Peripheral Pulses WNL: Yes Peripheral Pulses: Left Doralis Pedis: 2+, Right Dorsalis Pedis: 2+ Neurological: Yes: Alert, Oriented Psychiatric: Yes: Alert, Oriented Labs: CBC, BMP 08/15/19 06:00 08/15/19 06:00 INR, PTT INR 1.12 (0.83-1.09) H 08/13/19 05:50 - ....Imaging Chest X-ray: Report Reviewed, Image Reviewed EKG: Report Reviewed, Image Reviewed Other: Report Reviewed, Image Reviewed (tele-no sig arrhythmias recorded) Assessment/Plan 79 F with ho PAF and DVT admitted with urinary retention and abdominal pain. She had dynamic ECG changes and elevated TP without CPK elevation. NSTEMI-suspect demand ischemia, type 2 [place] -No chest pain, dyspnea or heart failure secondary to infection and urinary retention. -cardiac enzymes trended down -no events on telemetry -can stop Heparin gtt, can change to DVT ppx -ECHO showed normal LV systolic function, normal RV function, mild valvular abnl -LE doppler showed no DVT -recc continued medical management -cont ASA 81mg daily -can stop Plavix on discharge and resume her home Eliquis for Pafib -Cont Toprol and crestor -cont current po Lasix
[2019-08-15] MEDS: MIRTAZAPINE 30 MG TABLET (FP) PO SCH (21:12)
[2019-08-15] MEDS: CEPHALEXIN MONOHYDRATE 500 MG CAPSULE (UD) PO SCH (21:12)
[2019-08-15] MEDS: ROSUVASTATIN CA 5 MG TABLET (FP) PO SCH (21:13)
[2019-08-16 08:54] VITALS: BP 116/57; TEMP 98.1
[2019-08-16 08:55] VITALS: PULSE 75
--- NOTE | 2019-08-16 09:05 | DS ---
Physical Examination Vital Signs: Vital Signs Temperature 98.1 F 08/16/19 08:53 Pulse Rate 75 08/16/19 08:53 Respiratory Rate 18 08/16/19 08:53 Blood Pressure 116/57 L 08/16/19 08:53 O2 Sat by Pulse Oximetry (%) 96 08/15/19 21:00 Labs: CBC, BMP 08/15/19 06:00 08/15/19 06:00 Discharge Summary Problems reviewed: Yes Reason For Visit: ELEVATED TROPONIN LEVEL Current Active Problems CKD (chronic kidney disease) (Acute) Elevated troponin (Acute) Hydronephrosis (Acute) Renal calculus (Acute) UTI (urinary tract infection) (Acute) Urinary retention (Acute) Hospital Course: - Problems (1) CKD (chronic kidney disease) Assessment/Plan: -Cr improving -Nephrology on board -Avoid nephrotoxins -monitor trend Problems reviewed: Yes Code(s): N18.9 - CHRONIC KIDNEY DISEASE, UNSPECIFIED (2) Elevated troponin Assessment/Plan: -Cardiology NSTEMI-suspect demand ischemia, type 2 [place] -No chest pain, dyspnea or heart failure secondary to infection and urinary retention. -cardiac enzymes trended down -no events on telemetry -can stop Heparin gtt, can change to DVT ppx -ECHO showed normal LV systolic function, normal RV function, mild valvular abnl -LE doppler showed no DVT -recc continued medical management -cont ASA 81mg daily -can stop Plavix on discharge and resume her home Eliquis for Pafib -Cont Toprol and crestor -cont current po Lasix Problems reviewed: Yes Code(s): R79.89 - OTHER SPECIFIED ABNORMAL FINDINGS OF BLOOD CHEMISTRY (3) UTI (urinary tract infection) Assessment/Plan: -UA reviewed -UC: Microbiology 08/12/19 06:45 Urine - Urine Clean Catch Urine Culture - Preliminary Klebsiella Pneumoniae Non Lactose Fermenting Gnb -Rocephin IV--Keflex -ID consult -+leukocytosis -Afebrile -CT abd/pelvis: Postsurgical changes in the colon, correlate with surgical history. There is no evidence of obstruction. Mild constipation. Diverticulosis with no evidence to suggest acute diverticulitis. Right nephrolithiasis with pelvocaliectasis and mild dilatation right ureter, recently passed stone cannot be excluded. Problems reviewed: Yes Code(s): N39.0 - URINARY TRACT INFECTION, SITE NOT SPECIFIED Qualifiers: Urinary tract infection type: site unspecified Hematuria presence: without hematuria Qualified Code(s): N39.0 - Urinary tract infection, site not specified (4) Afib Assessment/Plan: -chronic, rate controlled -on Heparin drip -On eliquis at home Problems reviewed: Yes Code(s): I48.91 - UNSPECIFIED ATRIAL FIBRILLATION Qualifiers: Atrial fibrillation type: paroxysmal Qualified Code(s): I48.0 - Paroxysmal atrial fibrillation Condition: Improved - Instructions Referrals: Quan Lamas MD [Primary Care Provider] - 1 Week Disposition: VNS/HOME HEALTH CARE - Home Medications Comprehensive Discharge Medication List: Ambulatory Orders Allopurinol [Zyloprim -] 100 mg PO DAILY 08/15/13 Mirtazapine [Remeron -] 30 mg PO HS 07/10/15 Pramipexole Di-HCl [Pramipexole ER] 0.75 mg PO BID 02/17/17 Rosuvastatin Calcium [Crestor] 5 mg PO HS 02/17/17 Apixaban [Eliquis] 2.5 mg PO BID 03/08/18 Furosemide [Lasix] 20 mg PO DAILY 03/08/18 Oxycodone HCl/Acetaminophen [Percocet 5-325 mg Tablet] 1 - 2 tab PO Q6H #50 tab MDD 8 07/27/18 Acetaminophen [Tylenol .Regular Strength -] 650 mg PO Q6H PRN tablet 08/16/19 Aspirin Coated [Ecotrin -] 81 mg PO DAILY tablet.ec 08/16/19 Cephalexin Monohydrate [Keflex -] 500 mg PO BID #20 capsule 08/16/19 Losartan Potassium [Cozaar -] 50 mg PO DAILY@0800 tablet 08/16/19 Metoprolol Succinate [Toprol XL -] 25 mg PO BID tab.sr.24h 08/16/19 Polyethylene Glycol 3350 [Miralax 119 gm Btl -] 17 gm PO DAILY bottle 08/16/19
--- NOTE | 2019-08-16 09:43 | PN ---
Progress Note, Physician History of Present Illness: seen and examined today in nad. pt states she is feeling well and would like to go home. - Current Medication List Current Medications: Active Medications Acetaminophen (Tylenol -) 650 mg PO Q6H PRN PRN Reason: PAIN LEVEL 6-10 Last Admin: 08/13/19 13:31 Dose: 650 mg Aspirin (Ecotrin -) 81 mg PO DAILY [facility] Last Admin: 08/15/19 09:21 Dose: 81 mg Cephalexin HCl (Keflex -) 500 mg PO BID [facility] Last Admin: 08/15/19 21:12 Dose: 500 mg Clopidogrel Bisulfate (Plavix -) 75 mg PO DAILY [facility] Last Admin: 08/15/19 09:22 Dose: 75 mg Furosemide (Lasix -) 20 mg PO DAILY [facility] Last Admin: 08/15/19 09:21 Dose: 20 mg Heparin Sodium (Porcine) (Heparin -) 1,000 unit IVPUSH PRN PRN PRN Reason: Heparin Losartan Potassium (Cozaar -) 50 mg PO DAILY@0800 [facility] Last Admin: 08/15/19 08:27 Dose: 50 mg Metoprolol Succinate (Toprol Xl -) 25 mg PO BID [facility] Last Admin: 08/15/19 21:12 Dose: 25 mg Mirtazapine (Remeron -) 30 mg PO HS [facility] Last Admin: 08/15/19 21:12 Dose: 30 mg Ondansetron HCl (Zofran Injection) 4 mg IVPUSH Q8H PRN PRN Reason: NAUSEA Last Admin: 08/13/19 17:23 Dose: 4 mg Polyethylene Glycol (Miralax (For Daily Use) -) 17 gm PO DAILY [facility] Last Admin: 08/15/19 09:26 Dose: 17 gm Pramipexole Dihydrochloride 0. 5 mg/ Pramipexole Dihydrochloride 0.25 mg 0.75 mg PO BID [facility] Rosuvastatin Calcium (Crestor -) 5 mg PO HS [facility] Last Admin: 08/15/19 21:13 Dose: 5 mg - Objective Vital Signs: Vital Signs Temperature 98.1 F 08/16/19 08:53 Pulse Rate 75 08/16/19 08:53 Respiratory Rate 18 08/16/19 08:53 Blood Pressure 116/57 L 08/16/19 08:53 O2 Sat by Pulse Oximetry (%) 96 08/16/19 09:02 Constitutional: Yes: No Distress, Calm Eyes: Yes: Conjunctiva Clear, EOM Intact HENT: Yes: Atraumatic, Normocephalic Neck: Yes: Supple, Trachea Midline Cardiovascular: Yes: Regular Rate and Rhythm, S1, S2. No: Bradycardia, Tachycardia, Pulse Irregular, Bruit, JVD, Gallop, Murmur, Rub, S3, S4, Varicosities Respiratory: Yes: Regular. No: Rales, Rhonchi, SOB, Wheezes Gastrointestinal: Yes: Normal Bowel Sounds, Soft. No: Distention, Tenderness Musculoskeletal: Yes: WNL Extremities: Yes: WNL Edema: No Peripheral Pulses WNL: Yes Peripheral Pulses: Left Doralis Pedis: 2+, Right Dorsalis Pedis: 2+ Neurological: Yes: Alert, Oriented Psychiatric: Yes: Alert, Oriented Labs: CBC, BMP 08/15/19 06:00 08/15/19 06:00 INR, PTT INR 1.12 (0.83-1.09) H 08/13/19 05:50 - ....Imaging Chest X-ray: Report Reviewed, Image Reviewed EKG: Report Reviewed, Image Reviewed Other: Report Reviewed, Image Reviewed (tele-nsr, no sig events recorded) Assessment/Plan 79 F with ho PAF and DVT admitted with urinary retention and abdominal pain. She had dynamic ECG changes and elevated TP without CPK elevation. NSTEMI-suspect demand ischemia, type 2 [place] -No chest pain, dyspnea or heart failure secondary to infection and urinary retention. -cardiac enzymes trended down -no events on telemetry -ECHO showed normal LV systolic function, normal RV function, mild valvular abnl -normal LV systolic function supporting presumed Type 2 MS as source of elevated troponin -LE doppler showed no DVT -recc continued medical management, would not pursue invasive diagnostic testing at this time -cont ASA 81mg daily -stop Plavix -plan to resume her home Eliquis for Pafib -Cont Toprol and crestor -cont current po Lasix -pt states she has outpt fup with Dr. Lamas in 1 week and she follows with second butler in his office.
[2019-08-16] MEDS ORDERED: PRAMIPEXOLE DIHYDROCHLORIDE 0.5 MG, PRAMIPEXOLE DIHYDROCHLORIDE 0.25 MG PO SCH (10:00)
[2019-08-16] MEDS: LOSARTAN POTASSIUM 25 MG TABLET PO SCH (10:24)
[2019-08-16] MEDS: CEPHALEXIN MONOHYDRATE 500 MG CAPSULE (UD) PO SCH (10:24)
[2019-08-16] MEDS: CLOPIDOGREL BISULFATE 75 MG TABLET (FP) PO SCH (10:25)
[2019-08-16] MEDS: POLYETHYLENE GLYCOL 3350 119 GM BTL PO SCH (10:25)
[2019-08-16] MEDS: FUROSEMIDE 20 MG TABLET (FP) PO SCH (10:25)
[2019-08-16] MEDS: metoPROLOL SUCCINATE 25 MG TAB.SR.24H (FP) PO SCH (10:25)
[2019-08-16] MEDS: ASPIRIN COATED 81 MG TABLET.EC PO SCH (10:25)
== END 2019-08-16 12:26 | disposition home health service (06) | DRG 690 ==
LOC: JER 05:10 → JERBED 10:14 → J4S 13:25
PROVIDERS: ADMIT Student in an Organized Health Care Education/Training Program; ATTEND Student in an Organized Health Care Education/Training Program
DX: N39.0 Urinary tract infection, site not specified (principal); I13.0 Hypertensive heart and chronic kidney disease with heart failure and stage 1 through stage 4 chronic kidney disease, or unspecified chronic kidney disease; I24.8 Other forms of acute ischemic heart disease; Z86.718 Personal history of other venous thrombosis and embolism; I10 Essential (primary) hypertension; Z85.038 Personal history of other malignant neoplasm of large intestine; Z79.01 Long term (current) use of anticoagulants; I48.0 Paroxysmal atrial fibrillation; I12.9 Hypertensive chronic kidney disease with stage 1 through stage 4 chronic kidney disease, or unspecified chronic kidney disease; N18.9 Chronic kidney disease, unspecified; R33.9 Retention of urine, unspecified; R79.89 Other specified abnormal findings of blood chemistry; I50.9 Heart failure, unspecified; E78.5 Hyperlipidemia, unspecified; N13.30 Unspecified hydronephrosis; B96.1 Klebsiella pneumoniae [K. pneumoniae] as the cause of diseases classified elsewhere
CPT/HCPCS: 36415; 71045-TC-FY; 74176-TC; 80048; 80053; 80061; 81003; 82550; 83605; 83721; 83735; 83880; 84100; 84484; 85025; 85027; 85610; 85730; 87040; 87086; 87186; 87804; 93005; 93010; 93306-TC; 93970-TC; 97116-GP; 97161-GP; 99284-25; J1644

== ENCOUNTER 2022-12-19 17:49 | Emergency (ER) | payer OTHER, MEDICARE ==
[2022-12-19 18:17] VITALS: RESP 18; BMI 19.7
[2022-12-19] MEDS ORDERED: ACETAMINOPHEN 500 MG TABLET (FP) PO ONE (18:23)
[2022-12-19] MEDS ORDERED: amLODIPine BESYLATE 2.5 MG TABLET (FP) PO ONE (18:32)
[2022-12-19] MEDS ORDERED: ACETAMINOPHEN 325 MG TABLET (FP) ONE (18:32)
[2022-12-19] MEDS ORDERED: LOSARTAN POTASSIUM 25 MG TABLET PO ONE (18:32)
[2022-12-19] MEDS ORDERED: LOSARTAN POTASSIUM 25 MG TABLET ONE (18:34)
[2022-12-19] MEDS ORDERED: amLODIPine BESYLATE 2.5 MG TABLET (FP) ONE (18:35)
[2022-12-19 23:54] VITALS: BP 175/71; PULSE 68; TEMP 98.3
== END 2022-12-20 02:13 | disposition home or self-care (01) ==
LOC: JER 17:49
DX: M25.572 Pain in left ankle and joints of left foot (principal); W01.0XXA Fall on same level from slipping, tripping and stumbling without subsequent striking against object, initial encounter
CPT/HCPCS: 70450-TC; 71045-TC-FY; 71046-TC-FY; 72125-TC; 72170-TC-FY; 73610-TC-LT-FY; 73630-TC-LT; 93005; 93010; 99285-25

== ENCOUNTER 2023-02-25 18:56 | Emergency (ER) | payer OTHER, MEDICARE ==
[2023-02-25 19:20] VITALS: RESP 16; TEMP 97.7; BMI 20.1
[2023-02-25] MEDS ORDERED: ACETAMINOPHEN 325 MG TABLET (FP) PO ONE (19:33)
[2023-02-25] MEDS ORDERED: ACETAMINOPHEN 325 MG TABLET (FP) ONE (19:36)
[2023-02-26 01:55] VITALS: BP 158/62; PULSE 60
== END 2023-02-26 02:11 | disposition home or self-care (01) ==
LOC: JER 18:56
DX: S80.01XA Contusion of right knee, initial encounter (principal); M25.561 Pain in right knee; M79.651 Pain in right thigh; M25.551 Pain in right hip; W01.0XXA Fall on same level from slipping, tripping and stumbling without subsequent striking against object, initial encounter; Y93.01 Activity, walking, marching and hiking
CPT/HCPCS: 70450-TC; 73502-TC-RT-FY; 73552-TC-RT-FY; 73562-TC-RT-FY; 73610-TC-RT-FY; 99284-25

== ENCOUNTER 2024-02-16 12:00 | Inpatient (IN) | payer OTHER, MEDICARE ==
[2024-02-16 13:23] LABS: HEMATOCRIT 32.4 % (32.4-45.2); HEMOGLOBIN 10.7 GM/dL (10.7-15.3); MCH 29.9 pg (25.7-33.7); MCHC 33.1 g/dl (32.0-36.0); MEAN CELL VOLUME 90.3 fl (80-96); MEAN PLT VOLUME 9.4 fl (7.5-11.1); PLATELET COUNT 153 10^3/uL (134-434); RBC 3.59 M/mm3 (3.60-5.2); RDW 14.2 % (11.6-15.6); VENOUS BASE EXCESS -4.5 mmol/L (-2-2); VENOUS O2 SATURATION 54.5 % (70-80); VENOUS PCO2 42.7 mmHg (38-52); VENOUS PH 7.318 (7.310-7.410); WHITE BLOOD COUNT 10.5 K/mm3 (4.0-10.0)
[2024-02-16 13:30] LABS: INR 0.97 (0.83-1.09)
[2024-02-16 13:33] LABS: ACTIVATED PTT 24.2 SECONDS (25.2-36.5)
[2024-02-16 13:46] LABS: POTASSIUM 4.2 mmol/L (3.5-5.1)
[2024-02-16 13:48] LABS: CALCIUM 10.2 mg/dL (8.5-10.1); MAGNESIUM 1.9 mg/dL (1.8-2.4)
[2024-02-16 13:49] LABS: ALBUMIN 3.6 g/dl (3.4-5.0)
[2024-02-16 13:53] LABS: BILIRUBIN,TOTAL 1.1 mg/dL (0.2-1); TOT PROT 6.8 g/dl (6.4-8.2)
[2024-02-16 13:54] LABS: CREATININE 1.3 mg/dL (0.55-1.3)
[2024-02-16] MEDS ORDERED: ONDANSETRON 4 MG/2 ML VIAL ONE (13:56)
[2024-02-16] MEDS ORDERED: ACETAMINOPHEN INJECTION 100 ML IVPB ONE (13:56)
[2024-02-16] MEDS ORDERED: FAMOTIDINE 10 MG/ML VIAL IVPB ONE (13:56)
[2024-02-16] MEDS ORDERED: FAMOTIDINE 20 MG/50 ML IVPB 20 MG/50 ML MG IVPB ONE (13:58)
[2024-02-16] MEDS: ACETAMINOPHEN 1000 MG/100 ML BAG IVPB ONE (14:06)
[2024-02-16] MEDS: FAMOTIDINE 20 MG/50 ML IVPB 20 MG/50 ML MG IVPB ONE (14:07)
[2024-02-16] MEDS: ONDANSETRON 4 MG/2 ML VIAL IVPUSH ONE (14:07)
[2024-02-16 14:08] LABS: ANISOCYTOSIS 0; MACROCYTOSIS 0
[2024-02-16 14:09] LABS: PLATELET ESTIMATE ADEQUATE
[2024-02-16] MEDS: LACTATED RINGERS SOLUTION 1000 ML INFUS.BAG IV ONE (15:01)
[2024-02-16 16:30] LABS: EPI CELLS 12 /uL (0-25.1); HYALINE CASTS 0 /uL (0-3.1); URINE APPEARANCE CLOUDY; URINE BACTERIA 3297 /uL (0-1359); URINE BILIRUBIN NEGATIVE (NEGATIVE); URINE COLOR YELLOW; URINE GLUCOSE (UA) NEGATIVE (NEGATIVE); URINE KETONE NEGATIVE (NEGATIVE); URINE LEUK ESTERASE TRACE (NEGATIVE); URINE NITRITE NEGATIVE (NEGATIVE); URINE PROTEIN 2+ (NEGATIVE); URINE RBC 32 /uL (0-23.9); URINE UROBILINOGEN 0.2 mg/dL (0.2-1.0); URINE WBC 36 /uL (0-25.8)
[2024-02-16] MEDS ORDERED: CEFTRIAXONE 1 GM/50 ML BAG ONE (17:20)
[2024-02-16] MEDS: CEFTRIAXONE 1,000 MG in DEXTROSE 5%-WATER - 50 ML IVPB ONE (17:29)
[2024-02-16] MEDS: APIXABAN 5 MG TABLET PO SCH (21:24)
[2024-02-16] MEDS: ATORVASTATIN CA 10 MG TABLET (FP) PO SCH (21:24)
[2024-02-16 23:36] VITALS: BMI 20.6
[2024-02-17 07:57] LABS: BASO % 0.2 % (0-2.0); EOS % 0.7 % (0-4.5); HEMATOCRIT 26.6 % (32.4-45.2); HEMOGLOBIN 9.1 GM/dL (10.7-15.3); LYMPH % 4.6 % (8-40); MCH 30.7 pg (25.7-33.7); MCHC 34.3 g/dl (32.0-36.0); MEAN CELL VOLUME 89.7 fl (80-96); MEAN PLT VOLUME 9.2 fl (7.5-11.1); MONO % 5.3 % (3.8-10.2); NEUT % 89.2 % (42.8-82.8); PLATELET COUNT 127 10^3/uL (134-434); RBC 2.97 M/mm3 (3.60-5.2); RDW 14.2 % (11.6-15.6); WHITE BLOOD COUNT 5.8 K/mm3 (4.0-10.0)
[2024-02-17 08:09] LABS: POTASSIUM 3.7 mmol/L (3.5-5.1)
[2024-02-17 08:12] LABS: CALCIUM 8.9 mg/dL (8.5-10.1)
[2024-02-17 08:13] LABS: BLOOD UREA NITROGEN 36.4 mg/dL (7-18); MAGNESIUM 1.7 mg/dL (1.8-2.4)
[2024-02-17 08:16] LABS: CREATININE 1.2 mg/dL (0.55-1.3)
[2024-02-17 08:17] LABS: TOT PROT 5.2 g/dl (6.4-8.2)
[2024-02-17 08:18] LABS: BILIRUBIN,TOTAL 0.8 mg/dL (0.2-1)
[2024-02-17 09:38] LABS: ALBUMIN 2.7 g/dl (3.4-5.0)
[2024-02-17] MEDS: CEFTRIAXONE 1 GM in DEXTROSE 5%-WATER - 50 ML IVPB SCH (12:15)
[2024-02-17] MEDS: LOSARTAN POTASSIUM 25 MG TABLET PO SCH (14:14)
[2024-02-17] MEDS: metoPROLOL SUCCINATE 25 MG TAB.SR.24H (FP) PO SCH (14:14)
[2024-02-17 15:09] VITALS: RESP 18
[2024-02-19 08:40] LABS: HEMATOCRIT 29.5 % (32.4-45.2); HEMOGLOBIN 10.1 GM/dL (10.7-15.3); MCH 30.3 pg (25.7-33.7); MCHC 34.4 g/dl (32.0-36.0); MEAN PLT VOLUME 9.2 fl (7.5-11.1); PLATELET COUNT 135 10^3/uL (134-434); RBC 3.35 M/mm3 (3.60-5.2); RDW 13.9 % (11.6-15.6); WHITE BLOOD COUNT 4.6 K/mm3 (4.0-10.0)
[2024-02-19 08:54] LABS: POTASSIUM 3.8 mmol/L (3.5-5.1)
[2024-02-19 09:01] LABS: BLOOD UREA NITROGEN 25.1 mg/dL (7-18); CALCIUM 10.2 mg/dL (8.5-10.1)
[2024-02-19 09:05] LABS: CREATININE 1.1 mg/dL (0.55-1.3)
[2024-02-19] MEDS: ACETAMINOPHEN 325 MG TABLET (FP) PO PRN (10:10)
[2024-02-19 17:45] VITALS: BP 158/84; PULSE 54; TEMP 98.4
== END 2024-02-19 18:16 | disposition home or self-care (01) | DRG 690 ==
LOC: JER 12:00 → JERBED 16:00 → OBSVTOIN 17:01 → J8W 18:31
PROVIDERS: ADMIT Family Medicine; ATTEND Family Medicine
DX: N39.0 Urinary tract infection, site not specified (principal); D64.9 Anemia, unspecified; R11.2 Nausea with vomiting, unspecified; I48.0 Paroxysmal atrial fibrillation; I12.9 Hypertensive chronic kidney disease with stage 1 through stage 4 chronic kidney disease, or unspecified chronic kidney disease; F03.90 Unspecified dementia, unspecified severity, without behavioral disturbance, psychotic disturbance, mood disturbance, and anxiety; Z86.718 Personal history of other venous thrombosis and embolism; K83.8 Other specified diseases of biliary tract; N18.30 Chronic kidney disease, stage 3 unspecified; R93.3 Abnormal findings on diagnostic imaging of other parts of digestive tract; B96.20 Unspecified Escherichia coli [E. coli] as the cause of diseases classified elsewhere
CPT/HCPCS: 0241U-QW; 36415; 70450-TC; 71045-TC-FY; 74176-TC; 80048; 80053; 81003; 82607; 82803; 83605; 83690; 83735; 84436; 84443; 84484; 85025; 85027; 85610; 85730; 86780; 86850; 86900; 86901; 87040; 87086; 87186; 87635; 93005; 93010; 97116-GP; 97161-GP; 99285-25; G0378; J0131